=== PATIENT | male | born 1980 | race Caucasian/White ===

== ENCOUNTER 2017-12-11 13:52 | Inpatient (IN) ==
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
[2017-12-11] MEDS ORDERED: Ipratropium/Albuterol Neb 3 ML IH ONE (14:08)
[2017-12-11] MEDS ORDERED: Piperacillin/Tazobactam 3.375 GM in 0.9 % Sodium Chloride Mini Bag 100 ML IVPB ONE (14:32)
[2017-12-11 15:04] LABS: Basophils % 0.1 %; Eosinophils % 0.1 %; Hematocrit 47.5 % (37.5-50.1); Hemoglobin 16.2 g/dL (12.9-16.9); Immature Granulocytes % 0.4 % (0-4); Lymphocytes # 1.1 K/mcL (0.6-4.6); Lymphocytes % 7.2 %; Mean Corpuscular HGB Conc 34.1 g/dL (31.6-35.5); Mean Corpuscular Hemoglobin 29.4 pg (28.0-33.3); Mean Corpuscular Volume 86.2 fL (83.0-100.0); Mean Platelet Volume 8.5 fL (9.4-12.4); Monocytes # 0.8 K/mcL (0.0-1.3); Monocytes % 5.2 %; Neutrophils # 13.1 K/mcL (1.6-8.9); Platelet Count 139 K/mcL (140-400); Red Blood Count 5.51 M/mcL (4.19-5.50); Red Cell Distribution Width 13.5 % (11.5-14.5)
[2017-12-11 15:12] LABS: INR 1.3; Prothrombin Time 13.6 Seconds (9.4-12.1)
[2017-12-11] MEDS ORDERED: *HR* FentaNYL (PF) 100 MCG/2 ML VIAL IVP ONE (15:24)
[2017-12-11 15:34] LABS: Alanine Aminotransferase 20 Units/L (7-52); Albumin 4.7 g/dL (3.5-5.7); Albumin/Globulin Ratio 1.5 (1.1-2.2); Alkaline Phosphatase 93 Units/L (34-104); Aspartate Amino Transferase 16 Units/L (13-39); Bilirubin,Direct 0.2 mg/dL (0.0-0.2); Bilirubin,Indirect 0.8 mg/dL (0.0-1.2); Blood Urea Nitrogen 15 mg/dL (6-20); Calcium 9.6 mg/dL (8.6-10.3); Carbon Dioxide 21 mEq/L (23-29); Chloride 106 mEq/L (98-107); Globulin 3.2 g/dL (2.4-3.5); Glucose 122 mg/dL (70-105); Osmolality,Calculated 288 (280-300); Potassium 3.7 mEq/L (3.5-5.1); Sodium 138 mEq/L (136-145); Total Protein 7.9 g/dL (6.4-8.9)
[2017-12-11] MEDS ORDERED: 0.9 % Sodium Chloride 1,000 ML IVC ONE (15:45)
[2017-12-11 16:11] LABS: BUN/Creatinine Ratio 22 (6-26); Magnesium 1.8 mg/dL (1.6-2.6); eGFR For African Americans > 60 (> 60); eGFR For Non-African Americans > 60 (> 60)
[2017-12-11] MEDS ORDERED: *HR* OxyCODONE ER (12 HR) 10 MG TABLET PO PRN (17:17)
[2017-12-11] MEDS ORDERED: Naloxone 0.4 MG/ML INJ IVP PRN (17:21)
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
[2017-12-11] MEDS ORDERED: Vancomycin (wt based) 1,000 MG VIAL IVPB SCH (18:00)
[2017-12-11] MEDS: *HR* OxyCODONE Immed Rel 15 MG TABLET PO PRN ×2 (18:25→22:23)
[2017-12-11] MEDS: Ringers Solution, Lactated 1,000 ML IVC SCH (18:26)
[2017-12-11] MEDS: Ipratropium/Albuterol Neb 3 ML IH SCH ×2 (20:27→23:42)
[2017-12-11] MEDS: Acetaminophen 325 MG TABLET PO PRN (20:43)
[2017-12-11] MEDS ORDERED: *HR* OxyCODONE ER (12 HR) 10 MG TABLET PO SCH (21:00)
--- NOTE | 2017-12-11 23:06 | Event Note ---
Date of Encounter: 12/11/17 Time of Encounter: 20:30 Alerted by pts. nurse [place] that pt. and pts. family were requesting his oxycodone 10 mg ER. Patient admitted with hypoxic respiratory failure and was placed on Ventimask. OxyContin 10 mg ER held due to respiratory failure. Instructed nurse to collect vitals at 21:30 which showed BP of 97/60, temp 100.9F, SPO2 100% on 8 L Ventimask, heart rate 94, RR 16. Oxycodone held due to hypotension. Will continue to monitor pt. and VS.
[2017-12-11] MEDS: traZODone 50 MG TABLET PO PRN (23:35)
[2017-12-11] MEDS: Baclofen 10 MG TABLET PO PRN (23:35)
[2017-12-11] MEDS: Piperacillin/Tazobactam 3.375 GM in 0.9 % Sodium Chloride Mini Bag 100 ML IVPB SCH (23:36)
[2017-12-11] MEDS: diazePAM 10 MG TABLET PO PRN (23:36)
[2017-12-12] MEDS: *HR* Heparin 5,000 UNIT/ML VIAL SQ SCH ×3 (00:59→15:11)
[2017-12-12] MEDS: Ipratropium/Albuterol Neb 3 ML IH SCH ×6 (03:47→23:32)
[2017-12-12] MEDS: Ringers Solution, Lactated 1,000 ML IVC SCH (04:08)
[2017-12-12 05:55] LABS: BUN/Creatinine Ratio 19 (6-26); Blood Urea Nitrogen 13 mg/dL (6-20); Calcium 8.3 mg/dL (8.6-10.3); Carbon Dioxide 23 mEq/L (23-29); Chloride 108 mEq/L (98-107); Glucose 105 mg/dL (70-105); Magnesium 1.5 mg/dL (1.6-2.6); Osmolality,Calculated 284 (280-300); Potassium 3.4 mEq/L (3.5-5.1); Sodium 137 mEq/L (136-145); eGFR For African Americans > 60 (> 60); eGFR For Non-African Americans > 60 (> 60)
[2017-12-12 06:40] LABS: Hematocrit 41.6 % (37.5-50.1); Hemoglobin 13.8 g/dL (12.9-16.9); Mean Corpuscular HGB Conc 33.2 g/dL (31.6-35.5); Mean Corpuscular Hemoglobin 29.1 pg (28.0-33.3); Mean Corpuscular Volume 87.8 fL (83.0-100.0); Mean Platelet Volume 8.7 fL (9.4-12.4); Platelet Count 106 K/mcL (140-400); Red Blood Count 4.74 M/mcL (4.19-5.50); Red Cell Distribution Width 13.8 % (11.5-14.5)
[2017-12-12] MEDS: Pregabalin 75 MG CAPSULE PO SCH (08:49)
[2017-12-12] MEDS: Piperacillin/Tazobactam 3.375 GM in 0.9 % Sodium Chloride Mini Bag 100 ML IVPB SCH ×2 (08:49→15:07)
[2017-12-12] MEDS: Baclofen 10 MG TABLET PO PRN (08:58)
[2017-12-12] MEDS: *HR* OxyCODONE Immed Rel 15 MG TABLET PO PRN ×2 (09:08→22:26)
[2017-12-12] MEDS ORDERED: Magnesium Oxide 400 MG TABLET PO ONE (10:18)
--- NOTE | 2017-12-12 10:23 | Internal Med Progress Note ---
Date of Encounter: 12/12/17 Time of Encounter: 10:21 - Assessment and plan (1) Acute hypoxemic respiratory failure Current Visit: Yes Status: Acute Assessment and plan: Patient is 100% on RA. Continue nebulizers. Treat pneumonia as below. Patient has a history of mucus plugs and is at risk again. Will order resp percussion protocol (2) Sepsis Current Visit: Yes Status: Acute Assessment and plan: Patient met sepsis criteria with fever, tachycardia, leukocytosis and pneumonia as a source. We will treat as below. Normal lactic acid. Qualifiers: Sepsis type: sepsis due to unspecified organism Qualified Code(s): A41.9 - Sepsis, unspecified organism (3) Pneumonia Current Visit: Yes Status: Acute Assessment and plan: Patient has been started on vancomycin and Zosyn for healthcare associated pneumonia. Not exactly sure when the last time he was hospitalized but he has a discharge summary from about a year ago. I think it is okay to keep on current antibiotics for now and de-escalate by tomorrow. He still has a white count of 15,000. Follow up on cultures. 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 Resumed on home muscle relaxant (5) DVT prophylaxis Current Visit: No Status: Acute Assessment and plan: Heparin subcutaneous - Subjective Interval history: Patient was seen and examined. Afebrile this morning. he is still having a cough. productive. Currently on RA. Admitted with pneumonia and being treated as healthcare associated pneumonia. Patient has a history of quadriplegia. On initial presentation was found to have a fever off over 103 and was tachycardic and was hypoxic in the 80s and put on supplemental oxygen. - Constitutional Vitals: Temp Pulse Resp BP Pulse Ox 97.4 F L 80 16 91/57 96 12/12/17 07:30 12/12/17 07:30 12/12/17 07:38 12/12/17 07:30 12/12/17 09:17 General appearance: Present: A&O X 3, severe distress, underweight Exam: GEN: NAD CVS: RRR. S1, S2, No m/r/g RESP: Diminished with coarse breath sounds on the right. ABD: Soft, NT, ND, +BS EXT: No edema. 2+ DP. No rashes. b/l below knee amp noted NEURO: Nonfocal Internal Medicine: Result - Labs CBC & Chem 7: 12/12/17 06:25 12/12/17 05:14 Labs: Short CBC 12/12/17 Range/Units 06:25 WBC 15.2 H (4.3-11.1) K/mcL Hgb 13.8 D (12.9-16.9) g/dL Hct 41.6 (37.5-50.1) % Plt Count 106 L (140-400) K/mcL BMP 12/12/17 05:14 Sodium 137 Potassium 3.4 L Chloride 108 H Carbon Dioxide 23 BUN 13 Creatinine 0.68 L Glucose 105 Calcium 8.3 L - ABG Interpretation ABG results: PT/INR, D-dimer PT 13.6 Seconds (9.4-12.1) H 12/11/17 13:59 D-Dimer 339 ng/mLFEU (0-500) 12/11/17 13:59 Consult Discharge Plan - Plan Referrals: Joseph Pelayo MD [Primary Care Provider] -
[2017-12-12] MEDS: Ondansetron 4 MG/2 ML VIAL IVP PRN (12:09)
[2017-12-12] MEDS: Acetaminophen 325 MG TABLET PO PRN (12:28)
[2017-12-12 13:35] LABS: Bilirubin,Urine Negative (Negative); Blood,Urine Large (Negative); Clarity,Urine Turbid (Clear); Color,Urine Dark Yellow (Yellow); Glucose,Urine (UA) Normal (Normal); Ketones,Urine Negative (Negative); Leukocyte Esterase,Urine Large (Negative); Nitrite,Urine Positive (Negative); Protein,Urine 30 mg/dL (Neg-Trace); Specific Gravity,Urine 1.016 (1.010-1.025); Urobilinogen,Urine Normal (Normal)
[2017-12-12 13:36] LABS: Bacteria,Urine Few per hpf (None-Few); Hyaline Casts,Urine None Seen per lpf (None-Few); RBC,Urine TNTC per hpf (0-3); Squamous Epithelial Cell,Urine Moderate per lpf (None-Few); WBC,Urine TNTC per hpf (0-3)
[2017-12-12] MEDS ORDERED: Ibuprofen 600 MG TABLET PO ONE (14:35)
[2017-12-12] MEDS: 0.9 % Sodium Chloride 1,000 ML IVC SCH (15:11)
[2017-12-12] MEDS ORDERED: Ketorolac 15 MG/ML VIAL IVP ONE (17:10)
[2017-12-13] MEDS: Baclofen 10 MG TABLET PO PRN ×2 (01:00→10:06)
[2017-12-13] MEDS: diazePAM 10 MG TABLET PO PRN (01:00)
[2017-12-13] MEDS: Piperacillin/Tazobactam 3.375 GM in 0.9 % Sodium Chloride Mini Bag 100 ML IVPB SCH ×3 (01:00→15:46)
[2017-12-13] MEDS: traZODone 50 MG TABLET PO PRN (01:11)
[2017-12-13] MEDS: *HR* Heparin 5,000 UNIT/ML VIAL SQ SCH ×3 (02:10→15:47)
[2017-12-13] MEDS: Ipratropium/Albuterol Neb 3 ML IH SCH ×6 (04:25→23:57)
[2017-12-13 05:28] LABS: Mean Corpuscular Volume 88.3 fL (83.0-100.0); Mean Platelet Volume 9.6 fL (9.4-12.4); Nucleated Red Blood Cells 0.3 /100 WBC (0)
[2017-12-13 05:29] LABS: Basophils % 0.3 %; Eosinophils # 0.3 K/mcL (0.0-0.6); Eosinophils % 3.1 %; Hematocrit 36.4 % (37.5-50.1); Immature Granulocytes % 1.4 % (0-4); Immature Platelets 1.7 % (1.1-6.1); Lymphocytes # 1.3 K/mcL (0.6-4.6); Mean Corpuscular Hemoglobin 29.1 pg (28.0-33.3); Monocytes # 0.5 K/mcL (0.0-1.3); Monocytes % 4.9 %; Neutrophils # 7.8 K/mcL (1.6-8.9); Red Blood Count 4.12 M/mcL (4.19-5.50); Segmented Neutrophils % 77.3 %
[2017-12-13 05:33] LABS: Platelet Count 77 K/mcL (140-400)
[2017-12-13 08:55] LABS: BUN/Creatinine Ratio 14 (6-26); Blood Urea Nitrogen 9 mg/dL (6-20); Calcium 7.9 mg/dL (8.6-10.3); Carbon Dioxide 25 mEq/L (23-29); Chloride 109 mEq/L (98-107); Glucose 101 mg/dL (70-105); Magnesium 1.6 mg/dL (1.6-2.6); Osmolality,Calculated 283 (280-300); Potassium 4.3 mEq/L (3.5-5.1); Sodium 137 mEq/L (136-145); eGFR For African Americans > 60 (> 60); eGFR For Non-African Americans > 60 (> 60)
[2017-12-13] MEDS ORDERED: Levofloxacin 750 MG/150 ML 750 MG/150 ML BAG IVPB SCH (10:00)
[2017-12-13] MEDS: Pregabalin 75 MG CAPSULE PO SCH (10:06)
[2017-12-13] MEDS: *HR* OxyCODONE Immed Rel 15 MG TABLET PO PRN ×2 (10:06→21:44)
[2017-12-13] MEDS: 0.9 % Sodium Chloride 1,000 ML IVC SCH ×2 (11:55→11:56)
[2017-12-13] MEDS ORDERED: Ketorolac 15 MG/ML VIAL IVP ONE (13:25)
[2017-12-13] MEDS ORDERED: Vancomycin 1 EACH in 0.9 % Sodium Chloride 250 ML IVPB SCH (14:00)
--- NOTE | 2017-12-13 17:11 | Internal Med Progress Note ---
Date of Encounter: 12/13/17 Time of Encounter: 14:23 - Subjective Interval history: Patient seen and examined at bedside. Resting in bed and reports of diffuse body pain. Pt's abx were de-escalated this morning however was noted to have a Tmax of 102.5 due to which Vancomycin and Zosyn was restarted. Stat blood cultures were drawn. - Assessment and plan (1) Acute hypoxemic respiratory failure Current Visit: Yes Status: Acute Assessment and plan: Patient is 100% on RA. Continue nebulizers. Treat pneumonia as below. Patient has a history of mucus plugs and is at risk again. Will order resp percussion protocol (2) Sepsis Current Visit: Yes Status: Acute Assessment and plan: Patient met sepsis criteria with fever, tachycardia, leukocytosis and pneumonia as a source. We will treat as below. Normal lactic acid. 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 Resumed on home muscle relaxant (5) DVT prophylaxis Current Visit: No Status: Acute Assessment and plan: Heparin subcutaneous - Constitutional Vitals: Temp Pulse Resp BP Pulse Ox 99.0 F 98 17 94/57 95 12/13/17 16:32 12/13/17 16:32 12/13/17 16:32 12/13/17 16:32 12/13/17 16:32 General appearance: Present: A&O X 3, no acute distress, obese - Head Head exam: Present: atraumatic, normocephalic - Eye Eye exam: Present: conjuntiva pink, sclera anicteric - Respiratory Respiratory exam: Absent: respiratory distress, wheezes (coarse breath sounds) - Cardiovascular Cardiovascular exam: Present: RRR, +S1, +S2. Absent: diastolic murmur, gallop, rubs, systolic murmur - GI/Abdominal GI/Abdominal exam: Present: normal bowel sounds, soft, no peritoneal signs. Absent: distended, tenderness - Extremities Exam Extremities exam: Present: warm, radial pulses palpable and symmetrical (b/l BKA ). Absent: calf tenderness - Neurological Exam Neurological exam: Present: alert, oriented X3 Internal Medicine: Result - Labs CBC & Chem 7: 12/13/17 05:11 12/13/17 06:57 Labs: Short CBC 12/13/17 Range/Units 05:11 WBC 10.1 (4.3-11.1) K/mcL Hgb 12.0 L D (12.9-16.9) g/dL Hct 36.4 L (37.5-50.1) % Plt Count 77 L (140-400) K/mcL Neutrophils # 7.8 (1.6-8.9) K/mcL BMP 12/13/17 06:57 Sodium 137 Potassium 4.3 Chloride 109 H Carbon Dioxide 25 BUN 9 Creatinine 0.63 L Glucose 101 Calcium 7.9 L - ABG Interpretation ABG results: PT/INR, D-dimer PT 13.6 Seconds (9.4-12.1) H 12/11/17 13:59 D-Dimer 339 ng/mLFEU (0-500) 12/11/17 13:59 Consult Discharge Plan - Plan Referrals: Joseph Pelayo MD [Primary Care Provider] -
[2017-12-14] MEDS: *HR* Heparin 5,000 UNIT/ML VIAL SQ SCH ×4 (00:40→16:59)
[2017-12-14] MEDS: Acetaminophen 325 MG TABLET PO PRN (01:04)
[2017-12-14] MEDS: Piperacillin/Tazobactam 3.375 GM in 0.9 % Sodium Chloride Mini Bag 100 ML IVPB SCH ×3 (01:05→17:08)
[2017-12-14] MEDS: diazePAM 10 MG TABLET PO PRN ×2 (02:04→12:37)
[2017-12-14] MEDS: traZODone 50 MG TABLET PO PRN (02:04)
[2017-12-14] MEDS: Baclofen 10 MG TABLET PO PRN (02:04)
[2017-12-14] MEDS: Ipratropium/Albuterol Neb 3 ML IH SCH ×5 (03:55→20:02)
[2017-12-14] MEDS: 0.9 % Sodium Chloride 1,000 ML IVC SCH ×3 (07:25→13:38)
[2017-12-14 07:40] LABS: BUN/Creatinine Ratio 10 (6-26); Blood Urea Nitrogen 7 mg/dL (6-20); Calcium 8.3 mg/dL (8.6-10.3); Carbon Dioxide 24 mEq/L (23-29); Chloride 110 mEq/L (98-107); Glucose 111 mg/dL (70-105); Magnesium 1.7 mg/dL (1.6-2.6); Osmolality,Calculated 287 (280-300); Potassium 4.2 mEq/L (3.5-5.1); Sodium 139 mEq/L (136-145); eGFR For African Americans > 60 (> 60); eGFR For Non-African Americans > 60 (> 60)
[2017-12-14 07:42] LABS: Basophils % 0.2 %; Eosinophils # 0.3 K/mcL (0.0-0.6); Eosinophils % 3.1 %; Hematocrit 35.4 % (37.5-50.1); Hemoglobin 11.5 g/dL (12.9-16.9); Immature Granulocytes % 0.6 % (0-4); Immature Platelets 2.7 % (1.1-6.1); Lymphocytes # 0.9 K/mcL (0.6-4.6); Lymphocytes % 9.7 %; Mean Corpuscular HGB Conc 32.5 g/dL (31.6-35.5); Mean Corpuscular Hemoglobin 29.3 pg (28.0-33.3); Mean Corpuscular Volume 90.1 fL (83.0-100.0); Mean Platelet Volume 9.5 fL (9.4-12.4); Monocytes # 0.4 K/mcL (0.0-1.3); Monocytes % 4.7 %; Neutrophils # 7.5 K/mcL (1.6-8.9); Platelet Count 139 K/mcL (140-400); Red Blood Count 3.93 M/mcL (4.19-5.50); Red Cell Distribution Width 14.2 % (11.5-14.5); Segmented Neutrophils % 81.7 %
[2017-12-14 07:47] LABS: Platelet Estimate Slight Decrease (Normal)
[2017-12-14] MEDS: Pregabalin 75 MG CAPSULE PO SCH (07:50)
[2017-12-14] MEDS ORDERED: Ketorolac 15 MG/ML VIAL IVP ONE (09:56)
[2017-12-14] MEDS ORDERED: Ketorolac 15 MG/ML VIAL IVP PRN (09:58)
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
--- NOTE | 2017-12-14 12:21 | Electrocardiograph Report ---
[address] [place], [place] [address] Test Date: 2017-12-11 Pat Name: Mario Fritz Department: 103 Room: 2A71 Gender: M Cook Fry: JUAN RAMON : 1980 Requested By: Greg Decker Order Number: [id number] Reading MD: Wild Weathers Measurements Intervals [place] Rate: 100 P: 76 LA: 139 QRS: -28 QRSD: 118 T: 54 QT: 351 QTc: 408 Interpretive Statements SINUS TACHYCARDIA LEFT ATRIAL ENLARGEMENT BORDERLINE LEFT AXIS DEVIATION INCOMPLETE RIGHT BUNDLE BRANCH BLOCK BASELINE ARTIFACT Electronically Signed On 12-14-2017 12:19:18 EDT by Wild Weathers
--- NOTE | 2017-12-14 12:58 | Internal Med Progress Note ---
Date of Encounter: 12/14/17 Time of Encounter: 12:52 - Subjective Interval history: Patient seen and examined with family present at bedside. Resting in bed and reports of pain not being adequately controlled. Restarted patient's home pain medications in addition to continuation of break through pain medications. Given persistant fevers, repeat CXR was obtained and XRAY reported bilateral multifocal PNA. ID is consulted given persistent fevers - Assessment and plan (1) Acute hypoxemic respiratory failure Current Visit: Yes Status: Acute Assessment and plan: Patient is 100% on RA. Continue nebulizers. Treat pneumonia as below. Patient has a history of mucus plugs and is at risk again. Will order resp percussion protocol If pt continues to have persistent fevers despite appropriate abx coverage, will obtain CT chest and consider pulmonology evaluation for a possible bronchoscopy (2) Sepsis Current Visit: Yes Status: Acute Assessment and plan: Patient met sepsis criteria with fever, tachycardia, leukocytosis and pneumonia as a source. We will treat as below. Normal lactic acid. 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 esumed on home meds (5) DVT prophylaxis Current Visit: No Status: Acute Assessment and plan: Heparin subcutaneous (6) Electrolyte abnormality Current Visit: No Status: Acute Hypophosphatemia Phos supplemented continue to monitor electrolytes and replace as needed - Constitutional Vitals: Temp Pulse Resp BP Pulse Ox 100.5 F H 88 18 98/60 100 12/14/17 11:20 12/14/17 11:20 12/14/17 11:20 12/14/17 09:30 12/14/17 11:20 General appearance: Present: A&O X 3, no acute distress, obese - Head Head exam: Present: atraumatic, normocephalic - Eye Eye exam: Present: conjuntiva pink, sclera anicteric - Respiratory Respiratory exam: Absent: respiratory distress, wheezes (coarse breath sounds diffusely ) - Cardiovascular Cardiovascular exam: Present: RRR, +S1, +S2. Absent: diastolic murmur, gallop, rubs, systolic murmur - GI/Abdominal GI/Abdominal exam: Present: normal bowel sounds, soft, no peritoneal signs. Absent: distended, tenderness - Extremities Exam Extremities exam: Present: warm, radial pulses palpable and symmetrical (b/l LE BKA) - Neurological Exam Neurological exam: Present: oriented X3 Internal Medicine: Result - Labs CBC & Chem 7: 12/14/17 05:33 12/14/17 05:33 Labs: Short CBC 12/14/17 Range/Units 05:33 WBC 9.2 (4.3-11.1) K/mcL Hgb 11.5 L (12.9-16.9) g/dL Hct 35.4 L (37.5-50.1) % Plt Count 139 L D (140-400) K/mcL Neutrophils # 7.5 (1.6-8.9) K/mcL BMP 12/14/17 05:33 Sodium 139 Potassium 4.2 Chloride 110 H Carbon Dioxide 24 BUN 7 Creatinine 0.67 L Glucose 111 H Calcium 8.3 L - ABG Interpretation ABG results: PT/INR, D-dimer PT 13.6 Seconds (9.4-12.1) H 12/11/17 13:59 D-Dimer 339 ng/mLFEU (0-500) 12/11/17 13:59 - Impressions Impressions Chest X-Ray 12/14/17 07:00 IMPRESSION: Progressive bilateral multifocal pneumonia. D/ / 12/14/2017 08:07:17 Dave King MD / destinee Interpreting Provider: Dave King MD Consult Discharge Plan - Plan Referrals: Joseph Pelayo MD [Primary Care Provider] -
[2017-12-14] MEDS: *HR* OxyCODONE ER (12 HR) 10 MG TABLET PO SCH ×2 (13:40→17:08)
[2017-12-14 18:33] LABS: Adenovirus Not Detected (Not Detect); Bordetella Pertussis Not Detected (Not Detect); Chlamydophila pneumoniae Not Detected (Not Detect); Coronavirus 229E Not Detected (Not Detect); Coronavirus HKU1 Not Detected (Not Detect); Coronavirus NL63 Not Detected (Not Detect); Coronavirus OC43 Not Detected (Not Detect); Human Metapneumovirus Not Detected (Not Detect); Human Rhinovirus/Enterovirus Not Detected (Not Detect); Influenza A Subtype 2009 H1 Not Detected (Not Detect); Influenza A Untypeable Not Detected (Not Detect); Influenza B Not Detected (Not Detect); Mycoplasma pneumoniae Not Detected (Not Detect); Parainfluenza Virus 1 Not Detected (Not Detect); Parainfluenza Virus 2 Not Detected (Not Detect); Parainfluenza Virus 3 Not Detected (Not Detect); Parainfluenza Virus 4 Not Detected (Not Detect); Respiratory Syncytial Virus Not Detected (Not Detect)
[2017-12-15] MEDS: *HR* OxyCODONE Immed Rel 15 MG TABLET PO PRN ×3 (00:05→22:41)
[2017-12-15] MEDS: Baclofen 10 MG TABLET PO PRN ×3 (00:05→22:41)
[2017-12-15] MEDS: Acetaminophen 325 MG TABLET PO PRN ×2 (00:05→10:57)
[2017-12-15] MEDS: Piperacillin/Tazobactam 3.375 GM in 0.9 % Sodium Chloride Mini Bag 100 ML IVPB SCH ×3 (00:23→16:04)
[2017-12-15] MEDS: Ipratropium/Albuterol Neb 3 ML IH SCH ×7 (00:44→23:55)
[2017-12-15] MEDS: *HR* Heparin 5,000 UNIT/ML VIAL SQ SCH ×3 (01:29→16:03)
[2017-12-15] MEDS: *HR* OxyCODONE ER (12 HR) 10 MG TABLET PO SCH ×2 (05:45→18:03)
[2017-12-15 05:55] LABS: Basophils % 0.2 %; Eosinophils # 0.1 K/mcL (0.0-0.6); Eosinophils % 1.3 %; Hematocrit 35.1 % (37.5-50.1); Hemoglobin 11.2 g/dL (12.9-16.9); Immature Granulocytes % 0.3 % (0-4); Lymphocytes % 10.4 %; Mean Corpuscular HGB Conc 31.9 g/dL (31.6-35.5); Mean Corpuscular Hemoglobin 28.6 pg (28.0-33.3); Mean Corpuscular Volume 89.8 fL (83.0-100.0); Mean Platelet Volume 9.3 fL (9.4-12.4); Monocytes # 0.5 K/mcL (0.0-1.3); Monocytes % 4.9 %; Neutrophils # 7.6 K/mcL (1.6-8.9); Platelet Count 145 K/mcL (140-400); Red Blood Count 3.91 M/mcL (4.19-5.50); Red Cell Distribution Width 14.3 % (11.5-14.5); Segmented Neutrophils % 82.9 %
[2017-12-15 06:13] LABS: Vancomycin,Trough 30 mcg/mL (5-10)
[2017-12-15] MEDS: 0.9 % Sodium Chloride 1,000 ML IVC SCH ×2 (07:04→08:56)
[2017-12-15 07:37] LABS: BUN/Creatinine Ratio 10 (6-26); Blood Urea Nitrogen 6 mg/dL (6-20); Calcium 8.5 mg/dL (8.6-10.3); Carbon Dioxide 25 mEq/L (23-29); Chloride 107 mEq/L (98-107); Glucose 111 mg/dL (70-105); Magnesium 1.8 mg/dL (1.6-2.6); Osmolality,Calculated 282 (280-300); Phosphorous 3.5 mg/dL (2.7-4.5); Potassium 4.1 mEq/L (3.5-5.1); Sodium 137 mEq/L (136-145); eGFR For African Americans > 60 (> 60); eGFR For Non-African Americans > 60 (> 60)
[2017-12-15] MEDS: Pregabalin 75 MG CAPSULE PO SCH (08:54)
[2017-12-15] MEDS: Levofloxacin 750 MG/150 ML 750 MG/150 ML BAG IVPB SCH (08:55)
--- NOTE | 2017-12-15 09:58 | Infectious Disease Progress No ---
Date of Encounter: 12/15/17 Time of Encounter: 09:30 - Assessment and Plan (1) Sepsis Current Visit: Yes Status: Acute Patient met sepsis criteria at the time of admission. Currently demonstrates sepsis criteria with fever, tachycardia, hypoxia, multifocal pneumonia - Day# 5 of broad-spectrum antibiotics including IV vancomycin and Zosyn - Day 2 IV Levaquin 750 mg daily - Blood cultures 2 (12/11) preliminary no growth - Sputum culture (12/11 and 12/14): Many WBC, many epithelial cells, gram- positive cocci and many- specimen did not meet criteria for culture. - Chest x-ray (12/14): Progressive multifocal pneumonia - CTA of the chest (12/14) did not demonstrate PE, It did demonstrate multifocal pulmonary infiltrates, right greater than left, bilateral pleural effusions with right greater than left. Secretions within the tracheobronchial tree. Mediastinal and right hilar adenopathy. Qualifiers: Sepsis type: sepsis due to unspecified organism Qualified Code(s): A41.9 - Sepsis, unspecified organism (2) Multifocal pneumonia Current Visit: Yes Status: Acute Chest x-ray and chest CTA concerning for multifocal pneumonia, progressive since admission - Clinically patient is not improved Organism: Unknown at this time - blood culture as mentioned above - Antibiotics IV vancomycin and Zosyn (day 5 of both) - Urine Legionella antigen negative - Respiratory infectious panel negative Plan: - As discussed above. 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 - Continue pulmonary rehabilitation - Management per primary team. (4) Thrombocytopenia Current Visit: Yes Status: Acute Patient Demser thrombocytopenia in the setting of acute illness. - Continue to monitor and avoid Zyvox antibiotic coverage as could increase the risk of further thrombocytopenia complications. (5) Acute respiratory failure Current Visit: Yes Status: Acute patient has acute respiratory failure without improvement on current antibiotic therapy. - Hx of DVT with significant risk factors - Chest CTA negative for PE - Likely secondary to worsening multifocal pneumonia. Qualifiers: Respiratory failure complication: unspecified whether with hypoxia or hypercapnia Qualified Code(s): J96.00 - Acute respiratory failure, unspecified whether with hypoxia or hypercapnia (6) UTI (urinary tract infection) due to urinary indwelling catheter Current Visit: No Status: Acute Urine culture growing enterococcus, sensitivities still pending - Current antibiotic coverage is IV Zosyn Qualifiers: Indwelling urinary catheter type: cystostomy catheter Encounter type: initial encounter Qualified Code(s): T83.510A - Infection and inflammatory reaction due to cystostomy catheter, initial encounter; N39.0 - Urinary tract infection, site not specified; N39.0 - Urinary tract infection, site not specified - Subjective Interval history: Mr. Fritz was seen the patient bedside this morning. His father is there and very supportive. He states that he felt very confused last evening and having episodes of delusions. He demonstrates some confusion and talks about difficulty clearing mucus from his airway. He does not feel as [place] status is significantly improved but overall is feeling slightly better with less episodes of feeling feverish or chilled. He continues to have cough with production with nasal suction. Infect Dis PN-Objective Data - Labs CBC & Chem 7: 12/15/17 05:35 12/15/17 05:35 Labs: Laboratory Results - last 24 hr 12/14/17 12/15/17 12/15/17 17:19 05:35 05:35 WBC 9.1 RBC 3.91 L Hgb 11.2 L Hct 35.1 L MCV 89.8 MCH 28.6 MCHC 31.9 RDW 14.3 Plt Count 145 MPV 9.3 L Immature Gran % 0.3 Seg Neutrophils % 82.9 Lymphocytes % 10.4 Monocytes % 4.9 Eosinophils % 1.3 Basophils % 0.2 Neutrophils # 7.6 Lymphocytes # 1.0 Monocytes # 0.5 Eosinophils # 0.1 Basophils # 0.0 Sodium 137 Potassium 4.1 Chloride 107 Carbon Dioxide 25 BUN 6 Creatinine 0.59 L Est GFR ( Amer) > 60 Est GFR (Non-Af Amer) > 60 BUN/Creatinine Ratio 10 Glucose 111 H Calculated Osmolality 282 Calcium 8.5 L Phosphorus 3.5 Magnesium 1.8 Vancomycin Trough 30 H Chlamy pneumoniae PCR Not Detected Adenovirus (PCR) Not Detected B. pertussis DNA (PCR) Not Detected B.parapertussis DNA PCR Not Detected Coronavirus OC43 (PCR) Not Detected Coronavirus HKU1 (PCR) Not Detected Coronavirus 229E (PCR) Not Detected Coronavirus NL63 (PCR) Not Detected Human Metapneumovir PCR Not Detected Influenza A (H1) PCR Not Detected Influ A (H1N1/09) PCR Not Detected Influenza A (H3) PCR Not Detected Influenza A Untype (PCR) Not Detected Influenza Type B (PCR) Not Detected M.pneumoniae DNA (PCR) Not Detected Parainfluenza 1 (PCR) Not Detected Parainfluenza 2 (PCR) Not Detected Parainfluenza 3 (PCR) Not Detected Parainfluenza 4 (PCR) Not Detected RSV (PCR) Not Detected Entero/Rhino (PCR) Not Detected Cultures: Cultures 12/12/17 12:45 Urine Culture - Preliminary Urine,Clean Catch Enterococcus species 12/13/17 14:07 Blood Culture - Preliminary Peripheral Venipuncture No growth. 12/13/17 14:07 Blood Culture - Preliminary Peripheral Venipuncture No growth. 12/14/17 23:15 Sputum Culture - Final Sputum 12/12/17 12:45 Legionella Antigen - Final Urine,Clean Catch Streptococcus pneumoniae Antigen (M - Final 12/11/17 19:45 Sputum Culture - Final Sputum Serology 12/14/17 12/12/17 Range/Units 17:19 12:45 Urine Color Dark Yellow (Yellow) Urine Clarity Turbid A (Clear) Urine pH 7.0 (5.0-8.0) pH Units Ur Specific [place] 1.016 (1.010-1.025) Urine Protein 30 H (Neg-Trace) mg/dL Urine Glucose (UA) Normal (Normal) mg/dL Urine Ketones Negative (Negative) mg/dL Urine Blood Large H (Negative) Urine Nitrite Positive A (Negative) Urine Bilirubin Negative (Negative) Urine Urobilinogen Normal (Normal) mg/dL Ur Leukocyte Esterase Large H (Negative) Urine Microscopic RBC TNTC H (0-3) per hpf Urine Microscopic WBC TNTC H (0-3) per hpf Ur Squamous Epith Cells Moderate H (None-Few) per lpf Urine Bacteria Few (None-Few) per hpf Hyaline Casts None Seen (None-Few) per lpf Chlamy pneumoniae PCR Not Detected (Not Detect) Adenovirus (PCR) Not Detected (Not Detect) B. pertussis DNA (PCR) Not Detected (Not Detect) B.parapertussis DNA PCR Not Detected (Not Detect) Coronavirus OC43 (PCR) Not Detected (Not Detect) Coronavirus HKU1 (PCR) Not Detected (Not Detect) Coronavirus 229E (PCR) Not Detected (Not Detect) Coronavirus NL63 (PCR) Not Detected (Not Detect) Human Metapneumovir PCR Not Detected (Not Detect) Influenza A (H1) PCR Not Detected (Not Detect) Influ A (H1N1/09) PCR Not Detected (Not Detect) Influenza A (H3) PCR Not Detected (Not Detect) Influenza A Untype (PCR) Not Detected (Not Detect) Influenza Type B (PCR) Not Detected (Not Detect) M.pneumoniae DNA (PCR) Not Detected (Not Detect) Parainfluenza 1 (PCR) Not Detected (Not Detect) Parainfluenza 2 (PCR) Not Detected (Not Detect) Parainfluenza 3 (PCR) Not Detected (Not Detect) Parainfluenza 4 (PCR) Not Detected (Not Detect) RSV (PCR) Not Detected (Not Detect) Entero/Rhino (PCR) Not Detected (Not Detect) - Impressions Impressions Chest CTA 12/14/17 17:18 IMPRESSION: 1. No evidence of pulmonary embolic disease. 2. Multifocal pulmonary infiltrate, right greater than left. Complete lower lobe atelectasis bilaterally with partial gravity dependent left upper lobe atelectasis. Bilateral pleural effusions, right greater than left. 3. Secretions within the tracheobronchial tree. 4. Mediastinal and right hilar adenopathy, likely reactive. D/ / 12/14/2017 18:40:27 Ronal Bullock MD / destinee Interpreting Provider: Ronal Bullock MD Exam - Constitutional Vitals: Temp Pulse Resp BP Pulse Ox 99.6 F 90 16 92/53 97 12/15/17 07:34 12/15/17 07:34 12/15/17 07:34 12/15/17 07:34 12/15/17 09:15 Exam: General: Patient alert, awake, oriented 3, interactive, in no acute distress wearing oxygen mask HEENT: Normocephalic, atraumatic, pupils equal reactive to light,oral mucosa moist, neck supple trachea midline. Chest: Symmetric bilateral correlating with respiratory effort, effort nonlabored. Cardiac: Regular rate and rhythm, positive S1 and S2. no bruits appreciated bilateral carotids, Radial pulses 2+ bilateral, Respiratory: Crackles and wheezing appreciated in bilateral lung bases and peristernal Abdomen: Soft, mild tenderness to palpation, positive bowel sounds, no palpable masses appreciated on examination Extremities: bilateral below the knee amputations with no signs of erythema or edema, poor musculature with muscle spasticity and upper extremity is bilaterally Consult Discharge Plan - Plan Referrals: Joseph Pelayo MD [Primary Care Provider] - - Attending Attestation I examined this patient and my medical decision-making was reviewed with the Resident Physician. I agree with the documented findings, disposition and treatment plan as described except to the extent set forth below.
--- NOTE | 2017-12-15 12:38 | Internal Med Progress Note ---
Date of Encounter: 12/15/17 Time of Encounter: 12:25 - Time Spent With Patient Total time spent is greater than 50% in coordination of care (as documented) at patient's floor/unit and/or counseling patient: - Subjective Interval history: Patient seen and examined at bedside. Pain better controlled. Continues to have fevers with Tmax of 101.5 overnight. CTA chest reviewed and pulmonary evaluation requested Pt to undergo bronchoscopy in am - Assessment and plan (1) Acute hypoxemic respiratory failure Current Visit: Yes Status: Acute Assessment and plan: Patient is 100% on RA. Continue nebulizers. Treat pneumonia as below. Patient has a history of mucus plugs and is at risk again. continue pulm toileting (2) Sepsis Current Visit: Yes Status: Acute Assessment and plan: Patient met sepsis criteria with fever, tachycardia, leukocytosis and pneumonia as a source. We will treat as below. Normal lactic acid. Qualifiers: Sepsis type: sepsis due to unspecified organism Qualified Code(s): A41.9 - Sepsis, unspecified organism (3) Pneumonia Current Visit: Yes Status: Acute Assessment and plan: ID evaluation appreciated continue Vancomycin and Zosyn vanco dose adjusted as per vanc trough continue levaquin PUlm evaluation appreciated pt to undergo bronchoscopy in am blood and sputum cultures show NGTD preliminary report will obtain speech therapy for concern for aspirations maintain aspiration precautions Qualifiers: Pneumonia type: due to other aerobic Gram-negative bacteria Laterality: right Lung location: unspecified part of lung Qualified Code(s): J15.6 - Pneumonia due to other Gram-negative bacteria (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 resumed on home meds (5) DVT prophylaxis Current Visit: No Status: Acute Assessment and plan: Heparin subcutaneous (6) Electrolyte abnormality Current Visit: No Status: Acute resolved continue to monitor electrolytes and replace as needed - Constitutional Vitals: Temp Pulse Resp BP Pulse Ox 101.1 F H 89 15 113/73 100 12/15/17 10:42 12/15/17 10:42 12/15/17 11:47 12/15/17 10:42 12/15/17 11:47 General appearance: Present: A&O X 3, no acute distress, obese - Head Head exam: Present: atraumatic, normocephalic - Eye Eye exam: Present: conjuntiva pink, sclera anicteric - Respiratory Respiratory exam: Absent: respiratory distress, wheezes (coarse breath sounds ) - Cardiovascular Cardiovascular exam: Present: RRR, +S1, +S2. Absent: diastolic murmur, gallop, rubs, systolic murmur - GI/Abdominal GI/Abdominal exam: Present: normal bowel sounds, soft, no peritoneal signs. Absent: distended, tenderness - Extremities Exam Extremities exam: Present: warm. Absent: tenderness (s/p b/l LE AKA ) - Neurological Exam Neurological exam: Present: oriented X3 Internal Medicine: Result - Labs CBC & Chem 7: 12/15/17 05:35 12/15/17 05:35 Labs: Short CBC 12/15/17 Range/Units 05:35 WBC 9.1 (4.3-11.1) K/mcL Hgb 11.2 L (12.9-16.9) g/dL Hct 35.1 L (37.5-50.1) % Plt Count 145 (140-400) K/mcL Neutrophils # 7.6 (1.6-8.9) K/mcL BMP 12/15/17 05:35 Sodium 137 Potassium 4.1 Chloride 107 Carbon Dioxide 25 BUN 6 Creatinine 0.59 L Glucose 111 H Calcium 8.5 L - ABG Interpretation ABG results: PT/INR, D-dimer PT 13.6 Seconds (9.4-12.1) H 12/11/17 13:59 D-Dimer 339 ng/mLFEU (0-500) 12/11/17 13:59 - Impressions Impressions Chest CTA 12/14/17 17:18 IMPRESSION: 1. No evidence of pulmonary embolic disease. 2. Multifocal pulmonary infiltrate, right greater than left. Complete lower lobe atelectasis bilaterally with partial gravity dependent left upper lobe atelectasis. Bilateral pleural effusions, right greater than left. 3. Secretions within the tracheobronchial tree. 4. Mediastinal and right hilar adenopathy, likely reactive. D/ / 12/14/2017 18:40:27 Ronal Bullock MD / destinee Interpreting Provider: Ronal Bullock MD Consult Discharge Plan - Plan Referrals: Joseph Pelayo MD [Primary Care Provider] -
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
[2017-12-15] MEDS: diazePAM 10 MG TABLET PO PRN (22:41)
[2017-12-15] MEDS: traZODone 50 MG TABLET PO PRN (22:41)
[2017-12-16] MEDS: *HR* Heparin 5,000 UNIT/ML VIAL SQ SCH ×4 (00:07→23:29)
[2017-12-16] MEDS: Piperacillin/Tazobactam 3.375 GM in 0.9 % Sodium Chloride Mini Bag 100 ML IVPB SCH ×4 (00:08→23:28)
[2017-12-16] MEDS: Ipratropium/Albuterol Neb 3 ML IH SCH ×6 (04:46→23:55)
[2017-12-16] MEDS: *HR* OxyCODONE ER (12 HR) 10 MG TABLET PO SCH ×2 (06:12→18:20)
[2017-12-16 07:05] LABS: Basophils % 0.2 %; Eosinophils # 0.2 K/mcL (0.0-0.6); Hematocrit 35.6 % (37.5-50.1); Hemoglobin 11.6 g/dL (12.9-16.9); Immature Granulocytes % 0.4 % (0-4); Lymphocytes # 0.7 K/mcL (0.6-4.6); Lymphocytes % 7.5 %; Mean Corpuscular HGB Conc 32.6 g/dL (31.6-35.5); Mean Corpuscular Hemoglobin 29.1 pg (28.0-33.3); Mean Corpuscular Volume 89.4 fL (83.0-100.0); Mean Platelet Volume 9.2 fL (9.4-12.4); Monocytes # 0.7 K/mcL (0.0-1.3); Monocytes % 8.3 %; Neutrophils # 7.2 K/mcL (1.6-8.9); Platelet Count 159 K/mcL (140-400); Red Blood Count 3.98 M/mcL (4.19-5.50); Red Cell Distribution Width 13.9 % (11.5-14.5); Segmented Neutrophils % 81.6 %
[2017-12-16 07:35] LABS: BUN/Creatinine Ratio 9 (6-26); Blood Urea Nitrogen 5 mg/dL (6-20); Calcium 8.8 mg/dL (8.6-10.3); Carbon Dioxide 29 mEq/L (23-29); Chloride 103 mEq/L (98-107); Glucose 106 mg/dL (70-105); Magnesium 1.9 mg/dL (1.6-2.6); Osmolality,Calculated 284 (280-300); Phosphorous 3.4 mg/dL (2.7-4.5); Potassium 4.1 mEq/L (3.5-5.1); Sodium 138 mEq/L (136-145); eGFR For African Americans > 60 (> 60); eGFR For Non-African Americans > 60 (> 60)
--- NOTE | 2017-12-16 09:07 | Infectious Disease Progress No ---
Date of Encounter: 12/16/17 Time of Encounter: 08:35 - Assessment and Plan (1) Sepsis Current Visit: Yes Status: Acute Patient met sepsis criteria at the time of admission. 12/16: Improvement in fever trend (24-hour max 101.1), resolution tachycardia maintaining oxygen saturations on oxygen mask. - Day# 6 of broad-spectrum antibiotics including IV vancomycin and Zosyn - Day 3 IV Levaquin 750 mg daily - Blood cultures 2 (12/11) preliminary no growth - Sputum culture (12/11 and 12/14): Many WBC, many epithelial cells, gram- positive cocci and many- specimen did not meet criteria for culture. - Chest x-ray (12/14): Progressive multifocal pneumonia - CTA of the chest (12/14) did not demonstrate PE, It did demonstrate multifocal pulmonary infiltrates, right greater than left, bilateral pleural effusions with right greater than left. Secretions within the tracheobronchial tree. Mediastinal and right hilar adenopathy. - Evaluated by pulmonology with plans for bronchoscopy this afternoon. Qualifiers: Sepsis type: sepsis due to unspecified organism Qualified Code(s): A41.9 - Sepsis, unspecified organism (2) Multifocal pneumonia Current Visit: Yes Status: Acute Chest x-ray and chest CTA concerning for multifocal pneumonia, progressive since admission - Clinically patient is not improved Organism: Unknown at this time - blood culture as mentioned above - Antibiotics IV vancomycin and Zosyn (day 6 of both) - Levaquin IV- daily 3 - Urine Legionella antigen negative - Respiratory infectious panel negative - Pulmonary to perform bronchoscopy today. Plan: - As discussed above. 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 - Continue pulmonary rehabilitation - Management per primary team. (4) Thrombocytopenia Current Visit: Yes Status: Acute Patient has thrombocytopenia in the setting of acute illness. - Continue to monitor and avoid Zyvox antibiotic coverage as could increase the risk of further thrombocytopenia complications. (5) Acute respiratory failure Current Visit: Yes Status: Acute patient has acute respiratory failure with mild improvement on current antibiotic therapy. - Hx of DVT with significant risk factors - Chest CTA negative for PE - Likely secondary to worsening multifocal pneumonia. Qualifiers: Respiratory failure complication: unspecified whether with hypoxia or hypercapnia Qualified Code(s): J96.00 - Acute respiratory failure, unspecified whether with hypoxia or hypercapnia (6) UTI (urinary tract infection) due to urinary indwelling catheter Current Visit: No Status: Acute Urine culture growing enterococcus, sensitivities still pending - Current antibiotic coverage is IV Zosyn Qualifiers: Indwelling urinary catheter type: cystostomy catheter Encounter type: initial encounter Qualified Code(s): T83.510A - Infection and inflammatory reaction due to cystostomy catheter, initial encounter; N39.0 - Urinary tract infection, site not specified; N39.0 - Urinary tract infection, site not specified - Subjective Interval history: Mr. Fritz was seen the patient bedside this morning. His father is there and very supportive. He denies improvement in his shortness of breath, continues to have occasional chills and diaphoresis and coughing with sputum production. He is awaiting bronchoscopy today is hoping this will help in the management of his care. He has no further questions at this time and understands current antibiotic coverage. Infect Dis PN-Objective Data - Labs CBC & Chem 7: 12/16/17 06:53 12/16/17 06:53 Labs: Laboratory Results - last 24 hr 12/16/17 12/16/17 06:53 06:53 WBC 8.9 RBC 3.98 L Hgb 11.6 L Hct 35.6 L MCV 89.4 MCH 29.1 MCHC 32.6 RDW 13.9 Plt Count 159 MPV 9.2 L Immature Gran % 0.4 Seg Neutrophils % 81.6 Lymphocytes % 7.5 Monocytes % 8.3 Eosinophils % 2.0 Basophils % 0.2 Neutrophils # 7.2 Lymphocytes # 0.7 Monocytes # 0.7 Eosinophils # 0.2 Basophils # 0.0 Sodium 138 Potassium 4.1 Chloride 103 Carbon Dioxide 29 BUN 5 L Creatinine 0.57 L Est GFR ( Amer) > 60 Est GFR (Non-Af Amer) > 60 BUN/Creatinine Ratio 9 Glucose 106 H Calculated Osmolality 284 Calcium 8.8 Phosphorus 3.4 Magnesium 1.9 Cultures: Cultures 12/12/17 12:45 Urine Culture - Preliminary Urine,Clean Catch Enterococcus species 12/13/17 14:07 Blood Culture - Preliminary Peripheral Venipuncture No growth. 12/13/17 14:07 Blood Culture - Preliminary Peripheral Venipuncture No growth. 12/14/17 23:15 Sputum Culture - Final Sputum 12/12/17 12:45 Legionella Antigen - Final Urine,Clean Catch Streptococcus pneumoniae Antigen (M - Final 12/11/17 19:45 Sputum Culture - Final Sputum Serology 12/14/17 12/12/17 Range/Units 17:19 12:45 Urine Color Dark Yellow (Yellow) Urine Clarity Turbid A (Clear) Urine pH 7.0 (5.0-8.0) pH Units Ur Specific [place] 1.016 (1.010-1.025) Urine Protein 30 H (Neg-Trace) mg/dL Urine Glucose (UA) Normal (Normal) mg/dL Urine Ketones Negative (Negative) mg/dL Urine Blood Large H (Negative) Urine Nitrite Positive A (Negative) Urine Bilirubin Negative (Negative) Urine Urobilinogen Normal (Normal) mg/dL Ur Leukocyte Esterase Large H (Negative) Urine Microscopic RBC TNTC H (0-3) per hpf Urine Microscopic WBC TNTC H (0-3) per hpf Ur Squamous Epith Cells Moderate H (None-Few) per lpf Urine Bacteria Few (None-Few) per hpf Hyaline Casts None Seen (None-Few) per lpf Chlamy pneumoniae PCR Not Detected (Not Detect) Adenovirus (PCR) Not Detected (Not Detect) B. pertussis DNA (PCR) Not Detected (Not Detect) B.parapertussis DNA PCR Not Detected (Not Detect) Coronavirus OC43 (PCR) Not Detected (Not Detect) Coronavirus HKU1 (PCR) Not Detected (Not Detect) Coronavirus 229E (PCR) Not Detected (Not Detect) Coronavirus NL63 (PCR) Not Detected (Not Detect) Human Metapneumovir PCR Not Detected (Not Detect) Influenza A (H1) PCR Not Detected (Not Detect) Influ A (H1N1/09) PCR Not Detected (Not Detect) Influenza A (H3) PCR Not Detected (Not Detect) Influenza A Untype (PCR) Not Detected (Not Detect) Influenza Type B (PCR) Not Detected (Not Detect) M.pneumoniae DNA (PCR) Not Detected (Not Detect) Parainfluenza 1 (PCR) Not Detected (Not Detect) Parainfluenza 2 (PCR) Not Detected (Not Detect) Parainfluenza 3 (PCR) Not Detected (Not Detect) Parainfluenza 4 (PCR) Not Detected (Not Detect) RSV (PCR) Not Detected (Not Detect) Entero/Rhino (PCR) Not Detected (Not Detect) - Impressions Impressions Chest CTA 12/14/17 17:18 IMPRESSION: 1. No evidence of pulmonary embolic disease. 2. Multifocal pulmonary infiltrate, right greater than left. Complete lower lobe atelectasis bilaterally with partial gravity dependent left upper lobe atelectasis. Bilateral pleural effusions, right greater than left. 3. Secretions within the tracheobronchial tree. 4. Mediastinal and right hilar adenopathy, likely reactive. D/ / 12/14/2017 18:40:27 Ronal Bullock MD / destinee Interpreting Provider: Ronal Bullock MD Shoulder X-Ray 12/15/17 10:04 IMPRESSION: Old healed left clavicular fracture. No acute process of either shoulder. Bilateral lung infiltrates right worse than left. D/ / 12/15/2017 16:19:59 Carmelo Yao MD / sandra Interpreting Provider: Carmelo Yao MD Shoulder X-Ray 12/15/17 10:04 IMPRESSION: Old healed left clavicular fracture. No acute process of either shoulder. Bilateral lung infiltrates right worse than left. D/ / 12/15/2017 16:19:59 Carmelo Yao MD / sandra Interpreting Provider: Carmelo Yao MD Exam - Constitutional Vitals: Temp Pulse Resp BP Pulse Ox 97.7 F 99 15 117/75 94 12/16/17 08:07 12/16/17 08:07 12/16/17 08:07 12/16/17 08:07 12/16/17 08:07 Exam: General: Patient alert, awake, oriented 3, interactive, in no acute distress wearing oxygen mask HEENT: Normocephalic, atraumatic, pupils equal reactive to light,oral mucosa moist, neck supple trachea midline. Chest: Symmetric bilateral correlating with respiratory effort, effort nonlabored. Cardiac: Regular rate and rhythm, positive S1 and S2. no bruits appreciated bilateral carotids, Radial pulses 2+ bilateral, Respiratory: Crackles and wheezing appreciated in bilateral lung bases and peristernal Abdomen: Soft, mild tenderness to palpation, positive bowel sounds, no palpable masses appreciated on examination Extremities: bilateral below the knee amputations with no signs of erythema or edema, poor musculature with muscle spasticity and upper extremity is bilaterally Consult Discharge Plan - Plan Referrals: Joseph Pelayo MD [Primary Care Provider] - - Attending Attestation I examined this patient and my medical decision-making was reviewed with the Resident Physician. I agree with the documented findings, disposition and treatment plan as described except to the extent set forth below. On further questioning, patient apparently has constipation and has not had a bowel movement since admission. Patient usually gets Fleet enemas by his mom to help move his bowels. Parents and patient told me that he does have pain sensation in his abdomen if he has intra-abdominal process. Relate the message to the hospitalist team and nursing staff that the patient has not had a bowel movement since admission. Awaiting bronchoscopy to see what we find on the bronchoscopy Continue broad-spectrum antibiotics Vanco trough is 30 need to dose adjust Monitor labs and for drug toxicity
--- NOTE | 2017-12-16 09:15 | Pre-Sedation Evaluation ---
Pre-sedation evaluation - Pre-sedation checklist Date of procedure: 12/16/17 Procedure: Bronchoscopy Recent Vitals: Last Vital Signs Temp 97.7 F 12/16/17 08:07 Pulse 99 12/16/17 08:07 Resp 15 12/16/17 08:07 BP 117/75 12/16/17 08:07 Pulse Ox 94 12/16/17 08:07 H&P (including ROS) documented in medical record: Yes Previous reaction to sedatives/anesthetics: No Dietary Status: NPO after Midnight Airway Assessment: Patient can open mouth completely, TMJ function normal Dentition: No loose teeth or bridges Possible difficult airway: No ASA Classification *see protocol: CLASS III-Severe systemic disease Plan of Care: Pt appropriate candidate for procedure/moderate/conscious sedation , Risks/benefits of procedure/sedation discussed w/ patient/family
[2017-12-16] MEDS ORDERED: Albuterol 2.5 MG/3 ML NEBULIZER IH ONE (09:17)
[2017-12-16] MEDS ORDERED: Tetracaine/Benzocaine/Butamben 200MG/SPRAY (100SPY/BOT) MM ONE (09:17)
[2017-12-16] MEDS ORDERED: *HR* FentaNYL (PF) 100 MCG/2 ML VIAL IVP ONE (09:17)
[2017-12-16] MEDS ORDERED: *HR* EPINEPHrine 1 MG/10 ML SYRINGE INTRATRACH PRN (09:17)
[2017-12-16] MEDS ORDERED: *HR* Midazolam HCl 2 MG/2 ML VIAL IVP ONE (09:17)
[2017-12-16] MEDS: Levofloxacin 750 MG/150 ML 750 MG/150 ML BAG IVPB SCH (09:18)
[2017-12-16] MEDS: Pregabalin 75 MG CAPSULE PO SCH (09:19)
[2017-12-16] MEDS: Baclofen 10 MG TABLET PO PRN ×2 (09:19→23:29)
--- NOTE | 2017-12-16 10:58 | Internal Med Progress Note ---
Date of Encounter: 12/16/17 Time of Encounter: 10:56 - Time Spent With Patient Total time spent is greater than 50% in coordination of care (as documented) at patient's floor/unit and/or counseling patient: - Subjective Interval history: Pt seen and examined with family present at bedside. Reports of pain being appropriately controlled. No overnight issues reported. Scheduled for Bronchoscopy today Pt reported of being constipated and as per pt and family's wishes, fleet enema to be ordered as pt refuses to take any other stool softeners. pt's mother states that the enema is the only way he is able to move his bowels - Assessment and plan (1) Acute hypoxemic respiratory failure Current Visit: Yes Status: Acute Assessment and plan: Patient is 100% on RA. Continue nebulizers. Treat pneumonia as below. Patient has a history of mucus plugs and is at risk again. continue pulm toileting (2) Sepsis Current Visit: Yes Status: Acute Assessment and plan: Patient met sepsis criteria with fever, tachycardia, leukocytosis and pneumonia as a source. We will treat as below. Normal lactic acid. Qualifiers: Sepsis type: sepsis due to unspecified organism Qualified Code(s): A41.9 - Sepsis, unspecified organism (3) Pneumonia Current Visit: Yes Status: Acute Assessment and plan: ID evaluation appreciated continue Vancomycin and Zosyn vanco dose adjusted as per vanc trough continue levaquin PUlm evaluation appreciated pt to undergo bronchoscopy today (12/16/17) sputum culture reported Staph aureus speech therapy evaluation appreciated, diet adjusted as per their recommendations maintain aspiration precautions Qualifiers: Pneumonia type: due to other aerobic Gram-negative bacteria Laterality: right Lung location: unspecified part of lung Qualified Code(s): J15.6 - Pneumonia due to other Gram-negative bacteria (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 resumed on home meds (5) DVT prophylaxis Current Visit: No Status: Acute Assessment and plan: Heparin subcutaneous (6) Electrolyte abnormality Current Visit: No Status: Acute resolved continue to monitor electrolytes and replace as needed - Constitutional Vitals: Temp Pulse Resp BP Pulse Ox 97.7 F 99 15 117/75 94 12/16/17 08:07 12/16/17 08:07 12/16/17 08:07 12/16/17 08:07 12/16/17 10:34 General appearance: Present: A&O X 3 (quadriplegic with contracted upper extremities ), no acute distress, obese - Head Head exam: Present: atraumatic, normocephalic - Eye Eye exam: Present: conjuntiva pink, sclera anicteric - Respiratory Respiratory exam: Absent: respiratory distress, wheezes (diffuse rhonchi ) - Cardiovascular Cardiovascular exam: Present: RRR, +S1, +S2. Absent: diastolic murmur, gallop, rubs, systolic murmur - GI/Abdominal GI/Abdominal exam: Present: normal bowel sounds (suprapubic catheter in place ) , soft. Absent: tenderness - Extremities Exam Extremities exam: Present: warm, radial pulses palpable and symmetrical. Absent : calf tenderness (b/l LE BKA ) - Neurological Exam Neurological exam: Present: oriented X3 Internal Medicine: Result - Labs CBC & Chem 7: 12/16/17 06:53 12/16/17 06:53 Labs: Short CBC 12/16/17 Range/Units 06:53 WBC 8.9 (4.3-11.1) K/mcL Hgb 11.6 L (12.9-16.9) g/dL Hct 35.6 L (37.5-50.1) % Plt Count 159 (140-400) K/mcL Neutrophils # 7.2 (1.6-8.9) K/mcL BMP 12/16/17 06:53 Sodium 138 Potassium 4.1 Chloride 103 Carbon Dioxide 29 BUN 5 L Creatinine 0.57 L Glucose 106 H Calcium 8.8 - ABG Interpretation ABG results: PT/INR, D-dimer PT 13.6 Seconds (9.4-12.1) H 12/11/17 13:59 D-Dimer 339 ng/mLFEU (0-500) 12/11/17 13:59 - Impressions Impressions Chest CTA 12/14/17 17:18 IMPRESSION: 1. No evidence of pulmonary embolic disease. 2. Multifocal pulmonary infiltrate, right greater than left. Complete lower lobe atelectasis bilaterally with partial gravity dependent left upper lobe atelectasis. Bilateral pleural effusions, right greater than left. 3. Secretions within the tracheobronchial tree. 4. Mediastinal and right hilar adenopathy, likely reactive. D/ / 12/14/2017 18:40:27 Ronal Bullock MD / destinee Interpreting Provider: Ronal Bullock MD Shoulder X-Ray 12/15/17 10:04 IMPRESSION: Old healed left clavicular fracture. No acute process of either shoulder. Bilateral lung infiltrates right worse than left. D/ / 12/15/2017 16:19:59 Carmelo Yao MD / sandra Interpreting Provider: Carmelo Yao MD Shoulder X-Ray 12/15/17 10:04 IMPRESSION: Old healed left clavicular fracture. No acute process of either shoulder. Bilateral lung infiltrates right worse than left. D/ / 12/15/2017 16:19:59 Carmelo Yao MD / sandra Interpreting Provider: Carmelo Yao MD Consult Discharge Plan - Plan Referrals: Joseph Pelayo MD [Primary Care Provider] -
[2017-12-16] MEDS: Acetaminophen 325 MG TABLET PO PRN ×2 (12:27→19:04)
[2017-12-16] MEDS ORDERED: *HR* Midazolam HCl 5 MG/5 ML VIAL IVP ONE (14:20)
[2017-12-16] MEDS ORDERED: *HR* FentaNYL (PF) 100 MCG/2 ML VIAL ONE (14:21)
[2017-12-16] MEDS: Sennosides/Docusate Sodium TABLET PO SCH ×2 (15:33→21:54)
[2017-12-16] MEDS: diazePAM 10 MG TABLET PO PRN (23:29)
[2017-12-16] MEDS: traZODone 50 MG TABLET PO PRN (23:29)
[2017-12-17] MEDS: Acetaminophen 325 MG TABLET PO PRN ×2 (03:38→10:16)
[2017-12-17] MEDS: Ipratropium/Albuterol Neb 3 ML IH SCH ×6 (03:45→23:59)
[2017-12-17] MEDS: *HR* OxyCODONE ER (12 HR) 10 MG TABLET PO SCH ×2 (06:36→18:19)
[2017-12-17 07:04] LABS: BUN/Creatinine Ratio 14 (6-26); Blood Urea Nitrogen 7 mg/dL (6-20); Calcium 8.7 mg/dL (8.6-10.3); Carbon Dioxide 28 mEq/L (23-29); Chloride 108 mEq/L (98-107); Glucose 94 mg/dL (70-105); Osmolality,Calculated 286 (280-300); Phosphorous 2.5 mg/dL (2.7-4.5); Potassium 3.5 mEq/L (3.5-5.1); Sodium 139 mEq/L (136-145); eGFR For African Americans > 60 (> 60); eGFR For Non-African Americans > 60 (> 60)
[2017-12-17] MEDS: *HR* OxyCODONE Immed Rel 15 MG TABLET PO PRN (07:18)
[2017-12-17 07:31] LABS: Basophils % 0.4 %; Eosinophils # 0.1 K/mcL (0.0-0.6); Eosinophils % 1.7 %; Hematocrit 37.4 % (37.5-50.1); Hemoglobin 12.2 g/dL (12.9-16.9); Immature Granulocytes % 1.6 % (0-4); Lymphocytes # 1.1 K/mcL (0.6-4.6); Lymphocytes % 12.8 %; Mean Corpuscular HGB Conc 32.6 g/dL (31.6-35.5); Mean Corpuscular Hemoglobin 29.3 pg (28.0-33.3); Mean Corpuscular Volume 89.9 fL (83.0-100.0); Mean Platelet Volume 9.1 fL (9.4-12.4); Monocytes # 0.8 K/mcL (0.0-1.3); Neutrophils # 6.2 K/mcL (1.6-8.9); Platelet Count 229 K/mcL (140-400); Red Blood Count 4.16 M/mcL (4.19-5.50); Red Cell Distribution Width 13.7 % (11.5-14.5); Segmented Neutrophils % 74.5 %
--- NOTE | 2017-12-17 08:54 | Pulmonology Progress Note ---
Date of Encounter: 12/17/17 Time of Encounter: 08:52 Assessment and Plan (1) Acute hypoxemic respiratory failure Current Visit: Yes Status: Acute This is secondary to pneumonia with thick mucoid secretions that he has difficulty with mobilizing because of cervical spine injury. He will need continued bronchopulmonary toileting and as I explained to the patient and his family at bedside I suspect this will be an ongoing issue May benefit from cough support device which can be arranged in the outpatient setting with pulmonary follow-up (2) Multifocal pneumonia Current Visit: Yes Status: Acute BAL was performed in the right middle lobe pending microbiological and cytological interpretation Infectious disease managing antimicrobial selection Overall clinical course appears to be improving although infectious etiology remains unclear at this time (3) Mucus plugging of bronchi Current Visit: No Status: Acute Status post bronchoscopy with extensive secretions throughout the right tracheobronchial tree most notably in the right lower lobe but also noted on the right tracheobronchial tree but to a much less degree. Subjective Principal diagnosis: Pneumonia Interval history: Tolerated bronchoscopy without untoward effect. Oxygen requirement has been trending down. He has a low-grade fever today but overall fever curve appears to be improving clinically he says he feels a bit better Objective PUL Vital signs: Last Vital Signs Temp 100.3 F H 12/17/17 07:39 Pulse 82 12/17/17 07:39 Resp 18 12/17/17 08:46 BP 105/75 12/17/17 07:39 Pulse Ox 100 12/17/17 08:46 General appearance: no acute distress Auscultation: bilateral: rhonchi Cardiovascular: regular rate and rhythm normal mental status, non-focal exam Results - Laboratory Findings CBC and BMP: 12/17/17 06:12 12/17/17 06:12 PT/INR, D-dimer PT 13.6 Seconds (9.4-12.1) H 12/11/17 13:59 D-Dimer 339 ng/mLFEU (0-500) 12/11/17 13:59 Abnormal lab findings: Abnormal lab results RBC 4.16 M/mcL (4.19-5.50) L 12/17/17 06:12 Hgb 12.2 g/dL (12.9-16.9) L 12/17/17 06:12 Hct 37.4 % (37.5-50.1) L 12/17/17 06:12 MPV 9.1 fL (9.4-12.4) L 12/17/17 06:12 Nucleated RBCs/100 WBC 0.3 /100 WBC (0) H 12/13/17 05:11 Platelet Estimate Slight Decrease (Normal) L 12/14/17 05:33 PT 13.6 Seconds (9.4-12.1) H 12/11/17 13:59 Chloride 108 mEq/L (98-107) H 12/17/17 06:12 Creatinine 0.49 mg/dL (0.70-1.30) L 12/17/17 06:12 Phosphorus 2.5 mg/dL (2.7-4.5) L 12/17/17 06:12 Procalcitonin 0.34 ng/mL (<=0.10) H 12/14/17 16:30 Urine Clarity Turbid (Clear) A 12/12/17 12:45 Urine Protein 30 mg/dL (Neg-Trace) H 12/12/17 12:45 Urine Blood Large (Negative) H 12/12/17 12:45 Urine Nitrite Positive (Negative) A 12/12/17 12:45 Ur Leukocyte Esterase Large (Negative) H 12/12/17 12:45 Urine Microscopic RBC TNTC per hpf (0-3) H 12/12/17 12:45 Urine Microscopic WBC TNTC per hpf (0-3) H 12/12/17 12:45 Ur Squamous Epith Cells Moderate per lpf (None-Few) H 12/12/17 12:45 Vancomycin Trough 17 mcg/mL (5-10) H 12/17/17 06:12 - Microbiology Findings Microbiology Findings: Microbiology, Last 48 Hours 12/14/17 16:30 Blood Culture - Preliminary Peripheral Venipuncture No growth. 12/14/17 16:30 Blood Culture - Preliminary Peripheral Venipuncture No growth. 12/12/17 12:45 Urine Culture - Final Urine,Clean Catch Enterococcus faecalis 12/13/17 14:07 Blood Culture - Preliminary Peripheral Venipuncture No growth. 12/13/17 14:07 Blood Culture - Preliminary Peripheral Venipuncture No growth. - Clinical Findings Intake & Output: Intake & Output 12/16/17 12/17/17 12/17/17 23:59 07:59 15:59 Intake Total 350 / 350 120 / 120 Output Total 1350 / 1350 1600 / 1600 Balance -1000 / -1000 -1600 / -1600 120 / 120 Weight 75.3 kg Consult Discharge Plan - Plan Referrals: Joseph Pelayo MD [Primary Care Provider] -
--- NOTE | 2017-12-17 09:37 | Infectious Disease Progress No ---
Date of Encounter: 12/17/17 Time of Encounter: 08:25 - Assessment and Plan (1) Sepsis Current Visit: Yes Status: Acute Patient met sepsis criteria at the time of admission. 12/17: Continues to have low-grade fever chest then stable, no tachycardia, tachypnea or hypotension. Continues to require oxygen mask at this time.. - Day# 7 of broad-spectrum antibiotics including IV vancomycin and Zosyn - Day 4 IV Levaquin 750 mg daily - Blood cultures 2 (12/11) preliminary no growth - Sputum culture (12/11 and 12/14): Many WBC, many epithelial cells, gram- positive cocci and many- specimen did not meet criteria for culture. - Chest x-ray (12/14): Progressive multifocal pneumonia - CTA of the chest (12/14) did not demonstrate PE, It did demonstrate multifocal pulmonary infiltrates, right greater than left, bilateral pleural effusions with right greater than left. Secretions within the tracheobronchial tree. Mediastinal and right hilar adenopathy. - Evaluated by pulmonology, underwent bronchoscopy 12/16/2017 which demonstrated mucous plug in the right middle lung, cultures collected with pending results. Qualifiers: Sepsis type: sepsis due to unspecified organism Qualified Code(s): A41.9 - Sepsis, unspecified organism (2) Multifocal pneumonia Current Visit: Yes Status: Acute Chest x-ray and chest CTA concerning for multifocal pneumonia, progressive since admission - Clinically patient is not improved Organism: Unknown at this time - blood culture as mentioned above - Antibiotics IV vancomycin and Zosyn (day 7 of both) - Levaquin IV- daily 4 - Urine Legionella antigen negative - Respiratory infectious panel negative - Bronchial collection still pending Plan: - As discussed above. 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 - Continue pulmonary rehabilitation - Management per primary team. (4) Thrombocytopenia Current Visit: Yes Status: Acute Patient has thrombocytopenia in the setting of acute illness. - Continue to monitor and avoid Zyvox antibiotic coverage as could increase the risk of further thrombocytopenia complications. (5) Acute respiratory failure Current Visit: Yes Status: Acute patient has acute respiratory failure with mild improvement on current antibiotic therapy. - Hx of DVT with significant risk factors - Chest CTA negative for PE - Likely secondary to worsening multifocal pneumonia. - Discussed weaning oxygen with nursing, maintaining oxygen saturations greater than 90%. Qualifiers: Respiratory failure complication: unspecified whether with hypoxia or hypercapnia Qualified Code(s): J96.00 - Acute respiratory failure, unspecified whether with hypoxia or hypercapnia (6) UTI (urinary tract infection) due to urinary indwelling catheter Current Visit: No Status: Acute Urine culture growing enterococcus, resistant to doxycycline - Current antibiotic coverage is IV Zosyn day 7 Qualifiers: Indwelling urinary catheter type: cystostomy catheter Encounter type: initial encounter Qualified Code(s): T83.510A - Infection and inflammatory reaction due to cystostomy catheter, initial encounter; N39.0 - Urinary tract infection, site not specified; N39.0 - Urinary tract infection, site not specified - Subjective Interval history: Mr. Fritz was seen the patient bedside this morning. He is alert awake interactive and in no acute distress. He states that he has diffuse pain after assisted help with sputum expulsion. He states that he has had feelings of feverish overnight but denies any excessive chills or sweating. He is tolerating oxygen mask, continues to have poor appetite and sputum production has been decreased. He denies any other concerns or complaints at this time. Infect Dis PN-Objective Data - Labs CBC & Chem 7: 12/17/17 06:12 12/17/17 06:12 Labs: Laboratory Results - last 24 hr 12/14/17 12/17/17 12/17/17 16:30 06:12 06:12 WBC 8.4 RBC 4.16 L Hgb 12.2 L Hct 37.4 L MCV 89.9 MCH 29.3 MCHC 32.6 RDW 13.7 Plt Count 229 MPV 9.1 L Immature Gran % 1.6 Seg Neutrophils % 74.5 Lymphocytes % 12.8 Monocytes % 9.0 Eosinophils % 1.7 Basophils % 0.4 Neutrophils # 6.2 Lymphocytes # 1.1 Monocytes # 0.8 Eosinophils # 0.1 Basophils # 0.0 Sodium Potassium Chloride Carbon Dioxide BUN Creatinine Est GFR ( Amer) Est GFR (Non-Af Amer) BUN/Creatinine Ratio Glucose Calculated Osmolality Calcium Phosphorus Magnesium Procalcitonin 0.34 H Vancomycin Trough 17 H 12/17/17 06:12 WBC RBC Hgb Hct MCV MCH MCHC RDW Plt Count MPV Immature Gran % Seg Neutrophils % Lymphocytes % Monocytes % Eosinophils % Basophils % Neutrophils # Lymphocytes # Monocytes # Eosinophils # Basophils # Sodium 139 Potassium 3.5 Chloride 108 H Carbon Dioxide 28 BUN 7 Creatinine 0.49 L Est GFR ( Amer) > 60 Est GFR (Non-Af Amer) > 60 BUN/Creatinine Ratio 14 Glucose 94 Calculated Osmolality 286 Calcium 8.7 Phosphorus 2.5 L Magnesium 2.0 Procalcitonin Vancomycin Trough Cultures: Cultures 12/14/17 16:30 Blood Culture - Preliminary Peripheral Venipuncture No growth. 12/14/17 16:30 Blood Culture - Preliminary Peripheral Venipuncture No growth. 12/12/17 12:45 Urine Culture - Final Urine,Clean Catch Enterococcus faecalis 12/13/17 14:07 Blood Culture - Preliminary Peripheral Venipuncture No growth. 12/13/17 14:07 Blood Culture - Preliminary Peripheral Venipuncture No growth. 12/14/17 23:15 Sputum Culture - Final Sputum 12/12/17 12:45 Legionella Antigen - Final Urine,Clean Catch Streptococcus pneumoniae Antigen (M - Final 12/11/17 19:45 Sputum Culture - Final Sputum Serology 12/14/17 12/12/17 Range/Units 17:19 12:45 Urine Color Dark Yellow (Yellow) Urine Clarity Turbid A (Clear) Urine pH 7.0 (5.0-8.0) pH Units Ur Specific [place] 1.016 (1.010-1.025) Urine Protein 30 H (Neg-Trace) mg/dL Urine Glucose (UA) Normal (Normal) mg/dL Urine Ketones Negative (Negative) mg/dL Urine Blood Large H (Negative) Urine Nitrite Positive A (Negative) Urine Bilirubin Negative (Negative) Urine Urobilinogen Normal (Normal) mg/dL Ur Leukocyte Esterase Large H (Negative) Urine Microscopic RBC TNTC H (0-3) per hpf Urine Microscopic WBC TNTC H (0-3) per hpf Ur Squamous Epith Cells Moderate H (None-Few) per lpf Urine Bacteria Few (None-Few) per hpf Hyaline Casts None Seen (None-Few) per lpf Chlamy pneumoniae PCR Not Detected (Not Detect) Adenovirus (PCR) Not Detected (Not Detect) B. pertussis DNA (PCR) Not Detected (Not Detect) B.parapertussis DNA PCR Not Detected (Not Detect) Coronavirus OC43 (PCR) Not Detected (Not Detect) Coronavirus HKU1 (PCR) Not Detected (Not Detect) Coronavirus 229E (PCR) Not Detected (Not Detect) Coronavirus NL63 (PCR) Not Detected (Not Detect) Human Metapneumovir PCR Not Detected (Not Detect) Influenza A (H1) PCR Not Detected (Not Detect) Influ A (H1N1/09) PCR Not Detected (Not Detect) Influenza A (H3) PCR Not Detected (Not Detect) Influenza A Untype (PCR) Not Detected (Not Detect) Influenza Type B (PCR) Not Detected (Not Detect) M.pneumoniae DNA (PCR) Not Detected (Not Detect) Parainfluenza 1 (PCR) Not Detected (Not Detect) Parainfluenza 2 (PCR) Not Detected (Not Detect) Parainfluenza 3 (PCR) Not Detected (Not Detect) Parainfluenza 4 (PCR) Not Detected (Not Detect) RSV (PCR) Not Detected (Not Detect) Entero/Rhino (PCR) Not Detected (Not Detect) - Impressions Impressions KUB X-Ray 12/16/17 11:33 IMPRESSION: Nonobstructive bowel gas pattern. Moderate stool burden within the colon. 15 mm calcification in right upper quadrant may represent a renal stone. Severe bilateral hip degenerative changes. D/ / 12/16/2017 15:29:17 Artur Odom MD / [facility] Interpreting Provider: Artur Odom MD Exam - Constitutional Vitals: Temp Pulse Resp BP Pulse Ox 100.3 F H 82 18 105/75 100 12/17/17 07:39 12/17/17 07:39 12/17/17 08:46 12/17/17 07:39 12/17/17 08:46 Exam: General: Patient alert, interactive, no acute distress HEENT: Normocephalic, atraumatic, oral mucosa dry,, neck supple trachea midline no palpable lymphadenopathy Chest: Symmetric bilateral correlating with respiratory effort, effort nonlabored. Cardiac: Irregularly irregular heart rate and rhythm, radial pulses 2+ bilateral Respiratory: Bronchial congestion Abdomen: Soft, morbidly obese, nontender, + bowel sounds, midline hernia, no palpable masses appreciated on examination Extremities: Symmetric bilateral, bilateral lower studies demonstrate venous stasis with mild edema. No noticed ulcers or wounds. Neurologic: No focal deficits appreciated on examination. Face symmetric, muscle strength symmetric bilateral upper and lower extremities. Consult Discharge Plan - Plan Referrals: Joseph Pelayo MD [Primary Care Provider] - - Attending Attestation I examined this patient and my medical decision-making was reviewed with the Resident Physician. I agree with the documented findings, disposition and treatment plan as described except to the extent set forth below. Patient has what could be and nephrolithiasis is 15 mm in diameter. Patient also is impacted with stool. I appreciate the hospitalist recommendation. Awaiting bronchoscopy cultures and results.
[2017-12-17] MEDS: *HR* Heparin 5,000 UNIT/ML VIAL SQ SCH ×2 (09:50→17:29)
[2017-12-17] MEDS: Pregabalin 75 MG CAPSULE PO SCH (10:17)
[2017-12-17] MEDS: Sennosides/Docusate Sodium TABLET PO SCH (10:17)
[2017-12-17] MEDS: Piperacillin/Tazobactam 3.375 GM in 0.9 % Sodium Chloride Mini Bag 100 ML IVPB SCH ×2 (10:18→17:29)
[2017-12-17] MEDS: Baclofen 10 MG TABLET PO PRN (10:18)
[2017-12-17] MEDS: Levofloxacin 750 MG/150 ML 750 MG/150 ML BAG IVPB SCH (10:19)
[2017-12-17] MEDS ORDERED: *HR* OxyCODONE Immed Rel 15 MG TABLET PO PRN (11:30)
[2017-12-17 13:19] LABS: Appearance of Body Fluid Cloudy (Clear); Source of Body Fluid right middle lobe BA; Volume of Body Fluid 19 mL
[2017-12-17] MEDS ORDERED: *HR* OxyCODONE Immed Rel 5 MG TABLET PO PRN ×2 (14:30→16:11)
--- NOTE | 2017-12-17 16:44 | Internal Med Progress Note ---
Date of Encounter: 12/17/17 Time of Encounter: 13:25 - Time Spent With Patient Total time spent is greater than 50% in coordination of care (as documented) at patient's floor/unit and/or counseling patient: - Subjective Interval history: Pt seen and examined at bedside. reports of pain not being appropriately controlled, pain meds adjusted. KUB reported concerns for a renal stone. CT abd/pelvis requested s/p bronchoscopy, s/p BAL, awaiting microbiological and cytological interpretation - Assessment and plan (1) Acute hypoxemic respiratory failure Current Visit: Yes Status: Acute Assessment and plan: Patient is 100% on RA. Continue nebulizers. Treat pneumonia as below. Patient has a history of mucus plugs and is at risk again. continue pulm toileting (2) Sepsis Current Visit: Yes Status: Acute Assessment and plan: Patient met sepsis criteria with fever, tachycardia, leukocytosis and pneumonia as a source. We will treat as below. Normal lactic acid. Qualifiers: Sepsis type: sepsis due to unspecified organism Qualified Code(s): A41.9 - Sepsis, unspecified organism (3) Pneumonia Current Visit: Yes Status: Acute Assessment and plan: ID evaluation appreciated continue Vancomycin and Zosyn vanco dose adjusted as per vanc trough continue levaquin PUlm evaluation appreciated s/p bronchoscopy (12/16/17), awaiting microbiological and cytological interpretation; noted to have extensive secretions throughout the right tracheobronchial tree sputum culture reported Staph aureus speech therapy evaluation appreciated, diet adjusted as per their recommendations maintain aspiration precautions Qualifiers: Pneumonia type: due to other aerobic Gram-negative bacteria Laterality: right Lung location: unspecified part of lung Qualified Code(s): J15.6 - Pneumonia due to other Gram-negative bacteria (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 resumed on home meds (5) DVT prophylaxis Current Visit: No Status: Acute Assessment and plan: Heparin subcutaneous (6) Electrolyte abnormality Current Visit: No Status: Acute hypophosphatemia Phos supplemented continue to monitor electrolytes and replace as needed (7) UTI Current Visit: No Status: Acute Urine culture positive for enterococcus faecalis, continue current abx - Constitutional Vitals: Temp Pulse Resp BP Pulse Ox 98.7 F 91 18 100/67 94 12/17/17 11:58 12/17/17 11:58 12/17/17 15:39 12/17/17 15:00 12/17/17 15:39 General appearance: Present: A&O X 3 (quadriplegic with contracted upper extremities ), no acute distress, obese - Head Head exam: Present: atraumatic, normocephalic - Eye Eye exam: Present: conjuntiva pink, sclera anicteric - Respiratory Respiratory exam: Absent: respiratory distress, wheezes (coarse breath sounds, rhonchi) - Cardiovascular Cardiovascular exam: Present: RRR, +S1, +S2. Absent: diastolic murmur, gallop, rubs, systolic murmur - GI/Abdominal GI/Abdominal exam: Present: normal bowel sounds, soft, no peritoneal signs. Absent: distended, tenderness - Extremities Exam Extremities exam: Present: warm, radial pulses palpable and symmetrical (s/p B/ L BKA) - Neurological Exam Neurological exam: Present: oriented X3 Internal Medicine: Result - Labs CBC & Chem 7: 12/17/17 06:12 12/17/17 06:12 Labs: Short CBC 12/17/17 Range/Units 06:12 WBC 8.4 (4.3-11.1) K/mcL Hgb 12.2 L (12.9-16.9) g/dL Hct 37.4 L (37.5-50.1) % Plt Count 229 (140-400) K/mcL Neutrophils # 6.2 (1.6-8.9) K/mcL BMP 12/17/17 06:12 Sodium 139 Potassium 3.5 Chloride 108 H Carbon Dioxide 28 BUN 7 Creatinine 0.49 L Glucose 94 Calcium 8.7 - ABG Interpretation ABG results: PT/INR, D-dimer PT 13.6 Seconds (9.4-12.1) H 12/11/17 13:59 D-Dimer 339 ng/mLFEU (0-500) 12/11/17 13:59 Consult Discharge Plan - Plan Referrals: Joseph Pelayo MD [Primary Care Provider] - (please call upon discharge, per ocp office...)
[2017-12-18 00:23] LABS: Bilirubin,Urine Negative (Negative); Blood,Urine Moderate (Negative); Clarity,Urine Cloudy (Clear); Color,Urine Dark Yellow (Yellow); Glucose,Urine (UA) Normal (Normal); Ketones,Urine Negative (Negative); Leukocyte Esterase,Urine Moderate (Negative); Nitrite,Urine Negative (Negative); PH,Urine 6.5 pH Units (5.0-8.0); Protein,Urine 30 mg/dL (Neg-Trace); Urobilinogen,Urine Normal (Normal)
[2017-12-18 00:25] LABS: Hyaline Casts,Urine Few per lpf (None-Few); RBC,Urine 50-100 per hpf (0-3); Squamous Epithelial Cell,Urine Many per lpf (None-Few); WBC,Urine 30-50 per hpf (0-3)
[2017-12-18 00:40] LABS: Bacteria,Urine Few per hpf (None-Few)
[2017-12-18] MEDS: traZODone 50 MG TABLET PO PRN (00:49)
[2017-12-18] MEDS: Baclofen 10 MG TABLET PO SCH ×2 (00:49→09:19)
[2017-12-18] MEDS: Sennosides/Docusate Sodium TABLET PO SCH ×3 (00:49→21:03)
[2017-12-18] MEDS: diazePAM 10 MG TABLET PO PRN (00:49)
[2017-12-18] MEDS: *HR* Heparin 5,000 UNIT/ML VIAL SQ SCH ×3 (01:15→15:00)
[2017-12-18] MEDS: Piperacillin/Tazobactam 3.375 GM in 0.9 % Sodium Chloride Mini Bag 100 ML IVPB SCH ×4 (01:17→23:40)
[2017-12-18] MEDS: Acetaminophen 325 MG TABLET PO PRN ×2 (02:09→14:42)
[2017-12-18] MEDS: Ipratropium/Albuterol Neb 3 ML IH SCH ×6 (04:54→23:59)
[2017-12-18 06:03] LABS: Basophils % 0.4 %; Eosinophils # 0.3 K/mcL (0.0-0.6); Eosinophils % 3.6 %; Hematocrit 34.8 % (37.5-50.1); Hemoglobin 11.2 g/dL (12.9-16.9); Immature Granulocytes % 1.3 % (0-4); Lymphocytes % 13.2 %; Mean Corpuscular HGB Conc 32.2 g/dL (31.6-35.5); Mean Corpuscular Hemoglobin 29.1 pg (28.0-33.3); Mean Corpuscular Volume 90.4 fL (83.0-100.0); Mean Platelet Volume 8.7 fL (9.4-12.4); Monocytes # 0.6 K/mcL (0.0-1.3); Monocytes % 7.2 %; Neutrophils # 5.8 K/mcL (1.6-8.9); Platelet Count 224 K/mcL (140-400); Red Blood Count 3.85 M/mcL (4.19-5.50); Red Cell Distribution Width 13.9 % (11.5-14.5); Segmented Neutrophils % 74.3 %
[2017-12-18 06:23] LABS: BUN/Creatinine Ratio 11 (6-26); Blood Urea Nitrogen 6 mg/dL (6-20); Calcium 8.8 mg/dL (8.6-10.3); Carbon Dioxide 30 mEq/L (23-29); Chloride 103 mEq/L (98-107); Glucose 101 mg/dL (70-105); Magnesium 1.9 mg/dL (1.6-2.6); Osmolality,Calculated 286 (280-300); Phosphorous 3.5 mg/dL (2.7-4.5); Potassium 3.9 mEq/L (3.5-5.1); Sodium 139 mEq/L (136-145); eGFR For African Americans > 60 (> 60); eGFR For Non-African Americans > 60 (> 60)
[2017-12-18] MEDS: *HR* OxyCODONE ER (12 HR) 10 MG TABLET PO SCH ×2 (06:44→17:59)
[2017-12-18] MEDS: 0.9 % Sodium Chloride 1,000 ML IVC SCH (07:59)
[2017-12-18] MEDS: Ringers Solution, Lactated 1,000 ML IVC SCH (08:04)
--- NOTE | 2017-12-18 08:37 | Infectious Disease Progress No ---
Date of Encounter: 12/18/17 Time of Encounter: 08:36 - Assessment and Plan (1) Sepsis Current Visit: Yes Status: Acute Patient met sepsis criteria at the time of admission. 12/18: Continues to have low-grade fever, no tachycardia, tachypnea or hypotension. Continues to require oxygen mask with increased oxygen demand at this time. - Day# 8 of broad-spectrum antibiotics including IV vancomycin and Zosyn - D/C'd IV Levaquin 750 mg daily on 12/17/17 - Blood cultures 2 (12/11) preliminary no growth - Sputum culture (12/11 and 12/14): Many WBC, many epithelial cells, gram- positive cocci and many- specimen did not meet criteria for culture. - Gram stain from bronchoscopy has no growth. - Chest x-ray (12/14): Progressive multifocal pneumonia - CTA of the chest (12/14) did not demonstrate PE, It did demonstrate multifocal pulmonary infiltrates, right greater than left, bilateral pleural effusions with right greater than left. Secretions within the tracheobronchial tree. Mediastinal and right hilar adenopathy. - Evaluated by pulmonology, underwent bronchoscopy 12/16/2017 which demonstrated mucous plug in the right middle lung, cultures - no growth. Qualifiers: Sepsis type: sepsis due to unspecified organism Qualified Code(s): A41.9 - Sepsis, unspecified organism (2) Multifocal pneumonia Current Visit: Yes Status: Acute Chest x-ray and chest CTA concerning for multifocal pneumonia, progressive since admission - Clinically patient is not improved Organism: Unknown at this time - blood culture as mentioned above - Antibiotics IV vancomycin and Zosyn (day 8 of both) - Urine Legionella antigen negative - Respiratory infectious panel negative - Bronchial collection with no growth Pro calcitonin from 12/14/2017 0.34 ESR 109, CRP 176- concerning elevations. - Urine culture from 12/17/[address] with oral contrast of the abdomen and pelvis did not demonstrate any interval changes the abdominal cavity, bilateral lung bases were visualized with filling defects in the lower lobe bronchi concerning for aspirates. - Patient may benefit from swallow evaluation, consider current mucus plugging with increased oxygen demand. Plan: - As discussed above. 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 - Continue pulmonary rehabilitation - Management per primary team. (4) Thrombocytopenia Current Visit: Yes Status: Acute Patient has thrombocytopenia in the setting of acute illness. - Continue to monitor and avoid Zyvox antibiotic coverage as could increase the risk of further thrombocytopenia complications. (5) Acute respiratory failure Current Visit: Yes Status: Acute patient has acute respiratory failure with mild improvement on current antibiotic therapy. - Hx of DVT with significant risk factors - Chest CTA negative for PE - Likely secondary to worsening multifocal pneumonia and mucous plugging - Currently there is potential concern for aspiration and may benefit from swallow evaluation. He is also demonstrating diminished breath sounds in bilateral lung bases with increased risk of mucous plugging given the significant increase in oxygen demand and difficulty clearing his airway. Qualifiers: Respiratory failure complication: unspecified whether with hypoxia or hypercapnia Qualified Code(s): J96.00 - Acute respiratory failure, unspecified whether with hypoxia or hypercapnia (6) UTI (urinary tract infection) due to urinary indwelling catheter Current Visit: No Status: Acute Urine culture growing enterococcus, resistant to doxycycline - Current antibiotic coverage is IV Zosyn and vancomycin day 8 - Duration likely complete. Qualifiers: Indwelling urinary catheter type: cystostomy catheter Encounter type: initial encounter Qualified Code(s): T83.510A - Infection and inflammatory reaction due to cystostomy catheter, initial encounter; N39.0 - Urinary tract infection, site not specified; N39.0 - Urinary tract infection, site not specified - Subjective Interval history: Mr. Fritz was seen the patient bedside this morning. He is alert awake interactive and in no acute distress. He is currently on 10 L Oxymizer mask, states that he feels like he has continued difficulty clearing the sputum from his chest. Given avoiding taking deep breaths as he is worried about pulling more mucus down into his lung bases. He denies any fevers, chills, diaphoresis or other continuing complaints. His father at bedside is concerned about the increased need for oxygen.. Infect Dis PN-Objective Data - Labs CBC & Chem 7: 12/18/17 05:40 12/18/17 05:40 Labs: Laboratory Results - last 24 hr 12/16/17 12/17/17 12/17/17 14:50 06:12 18:19 WBC RBC Hgb Hct MCV MCH MCHC RDW Plt Count MPV Immature Gran % Seg Neutrophils % Lymphocytes % Monocytes % Eosinophils % Basophils % Neutrophils # Lymphocytes # Monocytes # Eosinophils # Basophils # ESR 109 H Sodium Potassium Chloride Carbon Dioxide BUN Creatinine Est GFR ( Amer) Est GFR (Non-Af Amer) BUN/Creatinine Ratio Glucose Calculated Osmolality Calcium Phosphorus Magnesium C-Reactive Protein Urine Color Dark Yellow Urine Clarity Cloudy A Urine pH 6.5 Ur Specific Leigh 1.020 Urine Protein 30 H Urine Glucose (UA) Normal Urine Ketones Negative Urine Blood Moderate H Urine Nitrite Negative Urine Bilirubin Negative Urine Urobilinogen Normal Ur Leukocyte Esterase Moderate H Urine Microscopic RBC 50-100 H Urine Microscopic WBC 30-50 H Ur Squamous Epith Cells Many H Urine Bacteria Few Hyaline Casts Few Ur Culture Indicated? NO. Fluid Source right middle lobe BA Fluid Volume 19 Fluid Appearance Cloudy A Fluid RBC 0.002 Fld Tot Nucleated Cell 1301 Fluid Seg Neutrophil % 93.2 Fld Band Neutrophil % TNP Fluid Lymphocytes % 2.3 Fluid Monocytes % TNP Fluid Eosinophils % TNP Fluid Basophils % TNP Fluid Other Cells % 4.5 12/17/17 12/18/17 12/18/17 18:35 05:40 05:40 WBC 7.8 RBC 3.85 L Hgb 11.2 L Hct 34.8 L MCV 90.4 MCH 29.1 MCHC 32.2 RDW 13.9 Plt Count 224 MPV 8.7 L Immature Gran % 1.3 Seg Neutrophils % 74.3 Lymphocytes % 13.2 Monocytes % 7.2 Eosinophils % 3.6 Basophils % 0.4 Neutrophils # 5.8 Lymphocytes # 1.0 Monocytes # 0.6 Eosinophils # 0.3 Basophils # 0.0 ESR Sodium 139 Potassium 3.9 Chloride 103 Carbon Dioxide 30 H BUN 6 Creatinine 0.56 L Est GFR ( Amer) > 60 Est GFR (Non-Af Amer) > 60 BUN/Creatinine Ratio 11 Glucose 101 Calculated Osmolality 286 Calcium 8.8 Phosphorus 3.5 Magnesium 1.9 C-Reactive Protein 176 H Urine Color Urine Clarity Urine pH Ur Specific Leigh Urine Protein Urine Glucose (UA) Urine Ketones Urine Blood Urine Nitrite Urine Bilirubin Urine Urobilinogen Ur Leukocyte Esterase Urine Microscopic RBC Urine Microscopic WBC Ur Squamous Epith Cells Urine Bacteria Hyaline Casts Ur Culture Indicated? Fluid Source Fluid Volume Fluid Appearance Fluid RBC Fld Tot Nucleated Cell Fluid Seg Neutrophil % Fld Band Neutrophil % Fluid Lymphocytes % Fluid Monocytes % Fluid Eosinophils % Fluid Basophils % Fluid Other Cells % Cultures: Cultures 12/16/17 14:50 Gram Stain - Final Right Middle Lobe Lung 12/14/17 16:30 Blood Culture - Preliminary Peripheral Venipuncture No growth. 12/14/17 16:30 Blood Culture - Preliminary Peripheral Venipuncture No growth. 12/12/17 12:45 Urine Culture - Final Urine,Clean Catch Enterococcus faecalis 12/13/17 14:07 Blood Culture - Preliminary Peripheral Venipuncture No growth. 12/13/17 14:07 Blood Culture - Preliminary Peripheral Venipuncture No growth. 12/14/17 23:15 Sputum Culture - Final Sputum 12/12/17 12:45 Legionella Antigen - Final Urine,Clean Catch Streptococcus pneumoniae Antigen (M - Final 12/11/17 19:45 Sputum Culture - Final Sputum Serology 12/17/17 12/16/17 12/14/17 Range/Units 18:19 14:50 17:19 Urine Color Dark Yellow (Yellow) Urine Clarity Cloudy A (Clear) Urine pH 6.5 (5.0-8.0) pH Units Ur Specific [place] 1.020 (1.010-1.025) Urine Protein 30 H (Neg-Trace) mg/dL Urine Glucose (UA) Normal (Normal) mg/dL Urine Ketones Negative (Negative) mg/dL Urine Blood Moderate H (Negative) Urine Nitrite Negative (Negative) Urine Bilirubin Negative (Negative) Urine Urobilinogen Normal (Normal) mg/dL Ur Leukocyte Esterase Moderate H (Negative) Urine Microscopic RBC 50-100 H (0-3) per hpf Urine Microscopic WBC 30-50 H (0-3) per hpf Ur Squamous Epith Cells Many H (None-Few) per lpf Urine Bacteria Few (None-Few) per hpf Hyaline Casts Few (None-Few) per lpf Ur Culture Indicated? NO. (NO) Fluid Source right middle lobe BA Fluid Volume 19 mL Fluid Appearance Cloudy A (Clear) Fluid RBC 0.002 (No Ref Range) M/mcL Fld Tot Nucleated Cell 1301 (No Ref Range) TNC/mcL Fluid Seg Neutrophil % 93.2 % Fld Band Neutrophil % TNP Fluid Lymphocytes % 2.3 % Fluid Monocytes % TNP Fluid Eosinophils % TNP Fluid Basophils % TNP Fluid Other Cells % 4.5 % Chlamy pneumoniae PCR Not Detected (Not Detect) Adenovirus (PCR) Not Detected (Not Detect) B. pertussis DNA (PCR) Not Detected (Not Detect) B.parapertussis DNA PCR Not Detected (Not Detect) Coronavirus OC43 (PCR) Not Detected (Not Detect) Coronavirus HKU1 (PCR) Not Detected (Not Detect) Coronavirus 229E (PCR) Not Detected (Not Detect) Coronavirus NL63 (PCR) Not Detected (Not Detect) Human Metapneumovir PCR Not Detected (Not Detect) Influenza A (H1) PCR Not Detected (Not Detect) Influ A (H1N1/09) PCR Not Detected (Not Detect) Influenza A (H3) PCR Not Detected (Not Detect) Influenza A Untype (PCR) Not Detected (Not Detect) Influenza Type B (PCR) Not Detected (Not Detect) M.pneumoniae DNA (PCR) Not Detected (Not Detect) Parainfluenza 1 (PCR) Not Detected (Not Detect) Parainfluenza 2 (PCR) Not Detected (Not Detect) Parainfluenza 3 (PCR) Not Detected (Not Detect) Parainfluenza 4 (PCR) Not Detected (Not Detect) RSV (PCR) Not Detected (Not Detect) Entero/Rhino (PCR) Not Detected (Not Detect) 12/12/17 Range/Units 12:45 Urine Color Dark Yellow (Yellow) Urine Clarity Turbid A (Clear) Urine pH 7.0 (5.0-8.0) pH Units Ur Specific Leigh 1.016 (1.010-1.025) Urine Protein 30 H (Neg-Trace) mg/dL Urine Glucose (UA) Normal (Normal) mg/dL Urine Ketones Negative (Negative) mg/dL Urine Blood Large H (Negative) Urine Nitrite Positive A (Negative) Urine Bilirubin Negative (Negative) Urine Urobilinogen Normal (Normal) mg/dL Ur Leukocyte Esterase Large H (Negative) Urine Microscopic RBC TNTC H (0-3) per hpf Urine Microscopic WBC TNTC H (0-3) per hpf Ur Squamous Epith Cells Moderate H (None-Few) per lpf Urine Bacteria Few (None-Few) per hpf Hyaline Casts None Seen (None-Few) per lpf Ur Culture Indicated? (NO) Fluid Source Fluid Volume mL Fluid Appearance (Clear) Fluid RBC (No Ref Range) M/mcL Fld Tot Nucleated Cell (No Ref Range) TNC/mcL Fluid Seg Neutrophil % % Fld Band Neutrophil % Fluid Lymphocytes % % Fluid Monocytes % Fluid Eosinophils % Fluid Basophils % Fluid Other Cells % % Chlamy pneumoniae PCR (Not Detect) Adenovirus (PCR) (Not Detect) B. pertussis DNA (PCR) (Not Detect) B.parapertussis DNA PCR (Not Detect) Coronavirus OC43 (PCR) (Not Detect) Coronavirus HKU1 (PCR) (Not Detect) Coronavirus 229E (PCR) (Not Detect) Coronavirus NL63 (PCR) (Not Detect) Human Metapneumovir PCR (Not Detect) Influenza A (H1) PCR (Not Detect) Influ A (H1N1/09) PCR (Not Detect) Influenza A (H3) PCR (Not Detect) Influenza A Untype (PCR) (Not Detect) Influenza Type B (PCR) (Not Detect) M.pneumoniae DNA (PCR) (Not Detect) Parainfluenza 1 (PCR) (Not Detect) Parainfluenza 2 (PCR) (Not Detect) Parainfluenza 3 (PCR) (Not Detect) Parainfluenza 4 (PCR) (Not Detect) RSV (PCR) (Not Detect) Entero/Rhino (PCR) (Not Detect) - Impressions Impressions Abdomen/Pelvis CT 12/17/17 16:14 IMPRESSION: Mild right-sided hydronephrosis secondary to a stone in the UPJ. Developing pyonephrosis not excluded. Bibasilar pulmonary infiltrates with partially loculated right pleural effusion and partial atelectasis of both lower lobes. Bilateral hip effusions. D/ / Julio César Carson MD / Julio César Carson MD Interpreting Provider: Julio César Carson MD Abdomen/Pelvis CT 12/17/17 21:00 IMPRESSION: No significant interval change in appearance of the abdomen and pelvis from the previous exam obtained earlier in the day. Better visualization of the lung base on the current study with identification of filling defects within the lower lobe bronchi which may reflect aspirates. D/ / Julio César Carson MD / Julio César Carson MD Interpreting Provider: Julio César Carson MD Exam - Constitutional Vitals: Temp Pulse Resp BP Pulse Ox 100.0 F H 92 16 111/70 92 12/18/17 08:03 12/18/17 08:03 12/18/17 08:03 12/18/17 08:03 12/18/17 08:03 Exam: General: Patient alert, interactive, no acute distress, on oxygen mask HEENT: Normocephalic, atraumatic, oral mucosa dry,, neck supple trachea midline no palpable lymphadenopathy Chest: Symmetric bilateral correlating with respiratory effort, effort nonlabored. Cardiac: Irregularly irregular heart rate and rhythm, radial pulses 2+ bilateral Respiratory: Diminished breath sounds in bilateral lung bases with inspiratory and expiratory rails and wheezing in bilateral lung apices Abdomen: Soft, morbidly obese, nontender, + bowel sounds, midline hernia, no palpable masses appreciated on examination Extremities: Symmetric bilateral, bilateral lower studies demonstrate venous stasis with mild edema. No noticed ulcers or wounds. Neurologic: Face symmetric, chronic poor musculature and deformity secondary to quadriplegia. Consult Discharge Plan - Plan Referrals: Joseph Pelayo MD [Primary Care Provider] - (please call upon discharge, per ocp office...) - Attending Attestation I examined this patient and my medical decision-making was reviewed with the Resident Physician. I agree with the documented findings, disposition and treatment plan as described except to the extent set forth below. CT abdomen and pelvis noted. Discussed with the hospitalist team and they spoke with urology who I think either up or stand and for the patient tomorrow. I answered all the patient's family's questions and addressed all their concerns.
[2017-12-18] MEDS: Pregabalin 75 MG CAPSULE PO SCH (09:18)
--- NOTE | 2017-12-18 14:36 | Internal Med Progress Note ---
Date of Encounter: 12/18/17 Time of Encounter: 13:50 - Time Spent With Patient Total time spent is greater than 50% in coordination of care (as documented) at patient's floor/unit and/or counseling patient: - Subjective Interval history: Pt seen and examined at bedside. reports of pain not being appropriately controlled, pain meds adjusted. CT abd/pelvis showed mild right sided hydronephrosis secondary to a stone in the UPJ. Developing pyonephrosis can not be excluded Urology consulted given CT findings. Pt scheduled for a stent placement in am. NPO after midnight - Assessment and plan (1) Acute hypoxemic respiratory failure Current Visit: Yes Status: Acute Assessment and plan: continue O2 supplementation Continue nebulizers. Treat pneumonia as below. Patient has a history of mucus plugs and is at risk again. continue pulm toileting (2) Sepsis Current Visit: Yes Status: Acute Assessment and plan: Patient met sepsis criteria with fever, tachycardia, leukocytosis and pneumonia as a source. We will treat as below. Normal lactic acid. Qualifiers: Sepsis type: sepsis due to unspecified organism Qualified Code(s): A41.9 - Sepsis, unspecified organism (3) Pneumonia Current Visit: Yes Status: Acute Assessment and plan: ID evaluation appreciated continue Vancomycin and Zosyn vanco dose adjusted as per vanc trough continue levaquin PUlm evaluation appreciated s/p bronchoscopy (12/16/17), awaiting microbiological and cytological interpretation; noted to have extensive secretions throughout the right tracheobronchial tree sputum culture reported Staph aureus speech therapy evaluation appreciated, diet adjusted as per their recommendations maintain aspiration precautions Given concern for pyonephrosis, urology consulted. 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 resumed on home meds (5) DVT prophylaxis Current Visit: No Status: Acute Assessment and plan: Heparin subcutaneous (6) Electrolyte abnormality Current Visit: No Status: Acute resolved continue to monitor electrolytes and replace as needed (7) UTI Current Visit: No Status: Acute Urine culture positive for enterococcus faecalis, continue current abx (8) Ureteral Calculi Current Visit: No Status: Acute urology evaluation requested NPO after midnight for stent placement in am - Constitutional Vitals: Temp Pulse Resp BP Pulse Ox 102.4 F H 86 20 110/70 90 12/18/17 14:24 12/18/17 11:57 12/18/17 12:07 12/18/17 11:57 12/18/17 12:07 General appearance: Present: A&O X 3 (quadriplegic with contracted upper extremities ), no acute distress, obese - Head Head exam: Present: atraumatic, normocephalic - Eye Eye exam: Present: conjuntiva pink, sclera anicteric - Respiratory Respiratory exam: Absent: respiratory distress, wheezes (coarse breath sounds diffusely ) - Cardiovascular Cardiovascular exam: Present: RRR, +S1, +S2. Absent: diastolic murmur, gallop, rubs, systolic murmur - GI/Abdominal GI/Abdominal exam: Present: normal bowel sounds, soft, no peritoneal signs. Absent: distended, tenderness - Extremities Exam Extremities exam: Present: warm, radial pulses palpable and symmetrical (s/p b/ l BKA ). Absent: calf tenderness - Neurological Exam Neurological exam: Present: oriented X3 Internal Medicine: Result - Labs CBC & Chem 7: 12/18/17 05:40 12/18/17 05:40 Labs: Short CBC 12/18/17 Range/Units 05:40 WBC 7.8 (4.3-11.1) K/mcL Hgb 11.2 L (12.9-16.9) g/dL Hct 34.8 L (37.5-50.1) % Plt Count 224 (140-400) K/mcL Neutrophils # 5.8 (1.6-8.9) K/mcL BMP 12/18/17 05:40 Sodium 139 Potassium 3.9 Chloride 103 Carbon Dioxide 30 H BUN 6 Creatinine 0.56 L Glucose 101 Calcium 8.8 Urine 12/17/17 Range/Units 18:19 Urine Color Dark Yellow (Yellow) Urine Clarity Cloudy A (Clear) Urine pH 6.5 (5.0-8.0) pH Units Ur Specific [place] 1.020 (1.010-1.025) Urine Protein 30 H (Neg-Trace) mg/dL Urine Glucose (UA) Normal (Normal) mg/dL - ABG Interpretation ABG results: PT/INR, D-dimer PT 13.6 Seconds (9.4-12.1) H 12/11/17 13:59 D-Dimer 339 ng/mLFEU (0-500) 12/11/17 13:59 - Impressions Impressions Abdomen/Pelvis CT 12/17/17 16:14 IMPRESSION: Mild right-sided hydronephrosis secondary to a stone in the UPJ. Developing pyonephrosis not excluded. Bibasilar pulmonary infiltrates with partially loculated right pleural effusion and partial atelectasis of both lower lobes. Bilateral hip effusions. D/ / Julio César Carson MD / Julio César Carson MD Interpreting Provider: Julio César Carson MD Abdomen/Pelvis CT 12/17/17 21:00 IMPRESSION: No significant interval change in appearance of the abdomen and pelvis from the previous exam obtained earlier in the day. Better visualization of the lung base on the current study with identification of filling defects within the lower lobe bronchi which may reflect aspirates. D/ / Julio César Carson MD / Julio César Carson MD Interpreting Provider: Julio César Carson MD Consult Discharge Plan - Plan Referrals: Joseph Pelayo MD [Primary Care Provider] - (please call upon discharge, per ocp office...)
[2017-12-18] MEDS: Ondansetron 4 MG/2 ML VIAL IVP PRN (14:51)
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
[2017-12-18] MEDS ORDERED: Isovue-300 50 ML VIAL IVP ONE (21:42)
--- NOTE | 2017-12-18 23:02 | Anesthesia Evaluation PreOp ---
Date of Encounter: 12/18/17 Time of Encounter: 22:59 - Past History Planned Operation: cysto, R ureteral stent Cardiac History: Denies any Significant Hx Pulmonary History: Former smoker, Other (pneumonia with respiratory distress currently, hx PE) TAPE MAKER History: Other (quadriplegia (cervical level); neurogenic bladder) Other Medical History: Renal (stones), Other (sepsis) Anesthesia History: No Prior Anesthetic Complications Alcohol Use: rarely Drug use: none Medications and Allergies Baclofen 20 mg PO BID 04/17/15 [History] Diazepam [Valium] 10 mg PO BID PRN 04/17/15 [History] Oxycodone HCl 15 mg PO Q6HR PRN 04/17/15 [History] Oxycodone HCl [Oxycontin] 10 mg PO BID 04/17/15 [History] Pregabalin [Lyrica] 300 mg PO DAILY 04/17/15 [History] Sertraline [Zoloft] 150 mg PO DAILY 04/17/15 [History] Trazodone HCl 150 mg PO HS PRN 04/17/15 [History] 3 Allergy/AdvReac Type Severity Reaction Status Date / Time morphine Allergy Hallucinati Verified 12/11/17 14:17 ng - Meds/Allergy Pre-op Review Medications Reviewed: Yes Allergies Reviewed: Yes Beta Blockers on Current Med List: No Anesthesia Results - Labs 12/18/17 05:40 12/18/17 05:40 - Imaging EKG: report reviewed, image reviewed (SINUS TACHYCARDIA LEFT ATRIAL ENLARGEMENT BORDERLINE LEFT AXIS DEVIATION INCOMPLETE RIGHT BUNDLE BRANCH BLOCK BASELINE ARTIFACT) Additional studies: 2014 TTE: Impressions: Normal left ventricular systolic function, LVEF 60%. Normal left ventricular diastolic function. Normal right ventricular structure and function. Unable to estimate RVSP due to lack of TR jet. No significant valvular dysfunction. No evidence of endocarditis. Anesthesia Exam Last Vital Signs Temp 101.1 F H 12/18/17 20:37 Pulse 105 12/18/17 20:37 Resp 18 12/18/17 20:37 BP 101/64 12/18/17 20:37 Pulse Ox 85 12/18/17 20:37 Weight: 75 kg NPO (# of Hours): > 8 hrs - HEENT Pupil (Motor): Pupils equal, EOMI Mallampati: III Teeth: Poor dentition Oral Opening: Greater than 3 - TAPE MAKER LOC: Oriented - Cardiac Rhythm: Regular - Pulmonary Breath Sounds: bilateral Rhonchi Respiratory Effort: Labored Anesthesia Assess/Plan ASA Score: 4, E Modified Alice Scale for Level of Consciousness: Cooperative, oriented, and tranquil Anesthetic Plan: General Monitoring Plan: Standard Monitors Recovery Plan: PACU
[2017-12-18] MEDS ORDERED: Nitroglycerin 25 MG/250 ML INFUS..BTL IVC ONE (23:04)
[2017-12-18] MEDS ORDERED: Lidocaine -MPF 2% 2 ML VIAL ONE (23:05)
[2017-12-18] MEDS ORDERED: *HR* Etomidate 40 MG/20 ML VIAL IVP ONE (23:05)
[2017-12-18] MEDS ORDERED: Ondansetron 4 MG/2 ML VIAL ONE (23:06)
[2017-12-18] MEDS ORDERED: Dexamethasone 4 MG/ML VIAL ONE ×2 (23:06→23:07)
[2017-12-18] MEDS ORDERED: *HR* Propofol 200 MG/20 ML VIAL IVP ONE (23:08)
[2017-12-18] MEDS ORDERED: *HR* PHENYLEPHRINE 1,000 MCG/10 ML SYRINGE IVP ONE (23:13)
[2017-12-18] MEDS ORDERED: EPHEDrine 50 MG/ML VIAL ONE (23:14)
[2017-12-18] MEDS ORDERED: *HR* Midazolam HCl 2 MG/2 ML VIAL ONE (23:19)
--- NOTE | 2017-12-19 00:19 | Operative Note ---
Date of procedure: 12/19/17 Pre-op diagnosis: Right ureteral stone Post-op diagnosis: other (Right ureteral stone with bladder stone) Procedure: Cystoscopy, right retrograde pyelogram, right ureteral stent placement, removal of bladder stone. Implants: 6-Trinidadian by 26 cm double-J stent. 20-Trinidadian suprapubic tube. Complications: none Anesthesia: MIRTHA Surgeon: Suleiman Kenny Was there an family medicine physician assistant present: No Estimated blood loss (cc): 0 Specimen: bladder stone Condition: stable Disposition: PACU Procedure in Detail: Indications: Mario is a 37-year-old man has a history of quadriplegia who developed urinary tract infection with sepsis. A CT scan showed a right proximal ureteral stone. He and his family elected to undergo a cystoscopy and right ureteral stent placement. He was aware of the risks of the surgery including but not limited to bleeding, infection, injury to other structures, need for further procedures , stent irritation, ureteral perforation, need for nephrostomy tube, need for open repair, risks unforeseen, and the risk of anesthesia. He is willing to proceed. Procedure: After informed consent was obtained the patient was brought back to the operating room and placed in the supine position. A timeout was performed. Gen. anesthesia was administered and an endotracheal tube was placed. His abdomen was prepped and draped in sterile fashion. The suprapubic tube had previously been removed. I perform cystoscopy down his suprapubic tube tract. There was a bladder stone. The ureteral orifices were in the normal position. There is no evidence of bladder tumor. Using an angle tipped zip wire I was able to pass this up the right ureteral orifice into the kidney under fluoroscopic guidance. An open-ended catheter was in place. A retrograde pyelogram was performed which showed good position in the kidney. The wire was replaced. I then passed a 6-Trinidadian by 26 cm double-J stent with a good curl seen in the kidney. The dangle strings were removed. A good curl was noted in the bladder. The scope was replaced and I utilized a basket to extract the bladder stone. A 20-Trinidadian [address] way catheter was then placed down the suprapubic tube tract. 10 mL was instilled into the balloon. The patient was brought to recovery in good condition.
[2017-12-19] MEDS: Baclofen 10 MG TABLET PO SCH ×4 (00:52→20:42)
--- NOTE | 2017-12-19 01:07 | Anesthesia Evaluation Post Op ---
Date of Encounter: 12/19/17 Time of Encounter: 01:06 - Vital Signs Vital Signs: Last Vital Signs Temp 101.4 F H 12/19/17 00:58 Pulse 93 12/19/17 00:58 Resp 28 12/19/17 00:58 BP 114/70 12/19/17 00:58 Pulse Ox 92 12/19/17 00:58 - Lungs Lungs: Rhonchi (baseline) - Airway Airway: Non-obstructed - Cardiovascular Regular Rate - Mental Status Mental Status: Alert & Oriented, Answers Appropriately - Pain Pain Scale: 3 - Nausea Vomiting Nausea Vomiting: Not Present - Hydration Hydration: NPO - Discharge PostOp Status: Transfer Patient to floor
[2017-12-19] MEDS: *HR* Heparin 5,000 UNIT/ML VIAL SQ SCH ×4 (01:50→22:34)
[2017-12-19] MEDS: traZODone 50 MG TABLET PO PRN (02:20)
[2017-12-19] MEDS: Acetaminophen 325 MG TABLET PO PRN (02:20)
[2017-12-19] MEDS ORDERED: Naloxone 0.4 MG/ML INJ IVP PRN (02:22)
[2017-12-19] MEDS ORDERED: Acetaminophen 325 MG TABLET PO PRN (02:22)
[2017-12-19] MEDS ORDERED: Ondansetron 4 MG/2 ML VIAL IVP PRN (02:22)
[2017-12-19] MEDS: Ipratropium/Albuterol Neb 3 ML IH SCH ×6 (04:53→23:56)
[2017-12-19 05:08] LABS: Basophils % 0.2 %; Eosinophils % 0.1 %; Hematocrit 38.1 % (37.5-50.1); Hemoglobin 12.1 g/dL (12.9-16.9); Immature Granulocytes % 1.4 % (0-4); Lymphocytes # 0.4 K/mcL (0.6-4.6); Lymphocytes % 4.2 %; Mean Corpuscular HGB Conc 31.8 g/dL (31.6-35.5); Mean Corpuscular Hemoglobin 29.3 pg (28.0-33.3); Mean Corpuscular Volume 92.3 fL (83.0-100.0); Mean Platelet Volume 8.8 fL (9.4-12.4); Monocytes # 0.2 K/mcL (0.0-1.3); Monocytes % 1.7 %; Neutrophils # 9.8 K/mcL (1.6-8.9); Platelet Count 305 K/mcL (140-400); Red Blood Count 4.13 M/mcL (4.19-5.50); Red Cell Distribution Width 14.1 % (11.5-14.5); Segmented Neutrophils % 92.4 %
[2017-12-19 05:17] LABS: BUN/Creatinine Ratio 13 (6-26); Blood Urea Nitrogen 7 mg/dL (6-20); Calcium 8.9 mg/dL (8.6-10.3); Carbon Dioxide 29 mEq/L (23-29); Chloride 103 mEq/L (98-107); Glucose 132 mg/dL (70-105); Magnesium 2.1 mg/dL (1.6-2.6); Osmolality,Calculated 290 (280-300); Phosphorous 3.5 mg/dL (2.7-4.5); Potassium 4.3 mEq/L (3.5-5.1); Sodium 140 mEq/L (136-145); eGFR For African Americans > 60 (> 60); eGFR For Non-African Americans > 60 (> 60)
[2017-12-19] MEDS: *HR* OxyCODONE ER (12 HR) 10 MG TABLET PO SCH ×2 (06:28→18:21)
[2017-12-19] MEDS ORDERED: *HR* HYDROmorphone 2 MG/ML SYRINGE IVP ONE (09:06)
[2017-12-19] MEDS: Pregabalin 75 MG CAPSULE PO SCH (09:08)
[2017-12-19] MEDS: Sennosides/Docusate Sodium TABLET PO SCH ×2 (09:09→20:43)
[2017-12-19] MEDS: Piperacillin/Tazobactam 3.375 GM in 0.9 % Sodium Chloride Mini Bag 100 ML IVPB SCH ×3 (09:25→22:35)
--- NOTE | 2017-12-19 09:56 | Urology Progress Note ---
Date of Encounter: 12/19/17 Time of Encounter: 09:55 - Assessment and Plan (1) Nephrolithiasis Current Visit: Yes Status: Acute Assessment and plan: Postop day #1 status post right ureteral stent placement. He is doing well. We will follow for now. He will need a right ureteroscopic stone extraction once his infection has cleared. (2) Sepsis Current Visit: Yes Status: Acute Qualifiers: Sepsis type: sepsis due to unspecified organism Qualified Code(s): A41.9 - Sepsis, unspecified organism (3) UTI (urinary tract infection) Current Visit: No Status: Acute Qualifiers: Urinary tract infection type: catheter-associated UTI Indwelling urinary catheter type: cystostomy catheter Encounter type: subsequent encounter Qualified Code(s): T83.510D - Infection and inflammatory reaction due to cystostomy catheter, subsequent encounter; N39.0 - Urinary tract infection, site not specified; N39.0 - Urinary tract infection, site not specified Progress Note Narrative: Doing well after right ureteral stent placement yesterday. Fever curve seems to be improving. Urine is draining well out the suprapubic tube. Objective Initial Vital Signs Temp Pulse Resp BP Pulse Ox 103.1 F H 100 22 134/83 89 12/11/17 13:56 12/11/17 13:56 12/11/17 13:56 12/11/17 13:56 12/11/17 13:56 - General physical appearance Present: no distress - Abdomen Present: soft - Genitourinary Present: other (SP tube with clear urine) - Labs 12/19/17 04:42 12/19/17 04:42 Diabetes panel 12/19/17 Range/Units 04:42 Sodium 140 (136-145) mEq/L Potassium 4.3 (3.5-5.1) mEq/L Chloride 103 (98-107) mEq/L Carbon Dioxide 29 (23-29) mEq/L BUN 7 (6-20) mg/dL Creatinine 0.56 L (0.70-1.30) mg/dL Glucose 132 H (70-105) mg/dL Calcium 8.9 (8.6-10.3) mg/dL Calcium panel 12/19/17 Range/Units 04:42 Calcium 8.9 (8.6-10.3) mg/dL Phosphorus 3.5 (2.7-4.5) mg/dL Pituitary panel 12/19/17 Range/Units 04:42 Sodium 140 (136-145) mEq/L Potassium 4.3 (3.5-5.1) mEq/L Chloride 103 (98-107) mEq/L Carbon Dioxide 29 (23-29) mEq/L BUN 7 (6-20) mg/dL Creatinine 0.56 L (0.70-1.30) mg/dL Glucose 132 H (70-105) mg/dL Calcium 8.9 (8.6-10.3) mg/dL Adrenal panel 12/19/17 Range/Units 04:42 Sodium 140 (136-145) mEq/L Potassium 4.3 (3.5-5.1) mEq/L Chloride 103 (98-107) mEq/L Carbon Dioxide 29 (23-29) mEq/L BUN 7 (6-20) mg/dL Creatinine 0.56 L (0.70-1.30) mg/dL Glucose 132 H (70-105) mg/dL Calcium 8.9 (8.6-10.3) mg/dL Consult Discharge Plan - Plan Referrals: Joseph Pelayo MD [Primary Care Provider] - (please call upon discharge, per ocp office...)
--- NOTE | 2017-12-19 14:38 | Internal Med Progress Note ---
Date of Encounter: 12/19/17 Time of Encounter: 10:50 - Time Spent With Patient Total time spent is greater than 50% in coordination of care (as documented) at patient's floor/unit and/or counseling patient: - Subjective Interval history: Pt seen and examined at bedside. POD #1 s/p post right ureteral stent placement Pt reported of diffuse severe pain that was not controlled with PO meds so one time dose of Dilaudid 0.5mg IV was given, which reported improvement of her symptoms. Noted to have increase in O2 requirements, currently on bipap support - Assessment and plan (1) Acute hypoxemic respiratory failure Current Visit: Yes Status: Acute Assessment and plan: continue O2 supplementation Continue nebulizers. Treat pneumonia as below. Patient has a history of mucus plugs and is at risk again. continue pulm toileting Bipap support as needed (2) Sepsis Current Visit: Yes Status: Acute Assessment and plan: Patient met sepsis criteria with fever, tachycardia, leukocytosis and pneumonia as a source. We will treat as below. Normal lactic acid. Qualifiers: Sepsis type: sepsis due to unspecified organism Qualified Code(s): A41.9 - Sepsis, unspecified organism (3) Pneumonia Current Visit: Yes Status: Acute Assessment and plan: ID evaluation appreciated continue Vancomycin and Zosyn vanco dose adjusted as per vanc trough continue levaquin PUlm evaluation appreciated s/p bronchoscopy (12/16/17), awaiting microbiological and cytological interpretation; noted to have extensive secretions throughout the right tracheobronchial tree sputum culture reported Staph aureus speech therapy evaluation appreciated, diet adjusted as per their recommendations maintain aspiration precautions Qualifiers: Pneumonia type: due to other aerobic Gram-negative bacteria Laterality: right Lung location: unspecified part of lung Qualified Code(s): J15.6 - Pneumonia due to other Gram-negative bacteria (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 resumed on home meds (5) DVT prophylaxis Current Visit: No Status: Acute Assessment and plan: Heparin subcutaneous (6) Electrolyte abnormality Current Visit: No Status: Acute resolved continue to monitor electrolytes and replace as needed (7) UTI Current Visit: No Status: Acute Urine culture positive for enterococcus faecalis, continue current abx (8) Ureteral Calculi Current Visit: No Status: Acute urology evaluation appreciated POD #1 s/p post right ureteral stent placement (DOS: 4/6/18) - Constitutional Vitals: Temp Pulse Resp BP Pulse Ox 98.5 F 85 17 93/55 92 12/19/17 11:08 12/19/17 11:08 12/19/17 11:39 12/19/17 11:08 12/19/17 11:39 General appearance: Present: A&O X 3 (quadriplegic with contracted upper extremities ), no acute distress, obese - Head Head exam: Present: atraumatic, normocephalic - Eye Eye exam: Present: conjuntiva pink, sclera anicteric - Respiratory Respiratory exam: Absent: respiratory distress, wheezes (coarse breath sounds, diffuse rhonchi) - Cardiovascular Cardiovascular exam: Present: RRR, +S1, +S2 - GI/Abdominal GI/Abdominal exam: Present: normal bowel sounds, soft. Absent: distended, tenderness - Extremities Exam Extremities exam: Present: warm, radial pulses palpable and symmetrical (s/p b/ l LE bKA ) - Neurological Exam Neurological exam: Present: oriented X3 Internal Medicine: Result - Labs CBC & Chem 7: 12/19/17 04:42 12/19/17 04:42 Labs: Short CBC 12/19/17 Range/Units 04:42 WBC 10.6 (4.3-11.1) K/mcL Hgb 12.1 L (12.9-16.9) g/dL Hct 38.1 (37.5-50.1) % Plt Count 305 (140-400) K/mcL Neutrophils # 9.8 H (1.6-8.9) K/mcL BMP 12/19/17 04:42 Sodium 140 Potassium 4.3 Chloride 103 Carbon Dioxide 29 BUN 7 Creatinine 0.56 L Glucose 132 H Calcium 8.9 - ABG Interpretation ABG results: PT/INR, D-dimer PT 13.6 Seconds (9.4-12.1) H 12/11/17 13:59 D-Dimer 339 ng/mLFEU (0-500) 12/11/17 13:59 - Impressions Impressions Retrograde Pyelogram 12/18/17 23:29 IMPRESSION: Intraprocedural fluoroscopic spot images as above. See separate procedure report for more information. D/ / Jemma Hogan Cha, MD / Jemma Hogan Cha, MD Interpreting Provider: Jemma Hogan Cha, MD Consult Discharge Plan - Plan Referrals: Joseph Pelayo MD [Primary Care Provider] - (please call upon discharge, per ocp office...)
[2017-12-19] MEDS: *HR* OxyCODONE Immed Rel 15 MG TABLET PO PRN (20:43)
[2017-12-20] MEDS: Ipratropium/Albuterol Neb 3 ML IH SCH ×5 (04:13→20:30)
[2017-12-20] MEDS: *HR* OxyCODONE ER (12 HR) 10 MG TABLET PO SCH ×2 (06:09→17:36)
[2017-12-20] MEDS: Piperacillin/Tazobactam 3.375 GM in 0.9 % Sodium Chloride Mini Bag 100 ML IVPB SCH ×3 (06:10→22:28)
[2017-12-20] MEDS: *HR* Heparin 5,000 UNIT/ML VIAL SQ SCH ×3 (06:31→22:14)
[2017-12-20 06:33] LABS: Basophils % 0.4 %; Eosinophils # 0.3 K/mcL (0.0-0.6); Eosinophils % 2.6 %; Hematocrit 34.2 % (37.5-50.1); Hemoglobin 10.7 g/dL (12.9-16.9); Immature Granulocytes % 1.1 % (0-4); Lymphocytes # 1.3 K/mcL (0.6-4.6); Lymphocytes % 11.6 %; Mean Corpuscular HGB Conc 31.3 g/dL (31.6-35.5); Mean Corpuscular Hemoglobin 28.8 pg (28.0-33.3); Mean Corpuscular Volume 91.9 fL (83.0-100.0); Mean Platelet Volume 8.6 fL (9.4-12.4); Monocytes # 0.5 K/mcL (0.0-1.3); Monocytes % 4.8 %; Neutrophils # 8.7 K/mcL (1.6-8.9); Platelet Count 303 K/mcL (140-400); Red Blood Count 3.72 M/mcL (4.19-5.50); Red Cell Distribution Width 14.1 % (11.5-14.5); Segmented Neutrophils % 79.5 %
[2017-12-20 06:49] LABS: BUN/Creatinine Ratio 23 (6-26); Blood Urea Nitrogen 12 mg/dL (6-20); Calcium 8.6 mg/dL (8.6-10.3); Carbon Dioxide 31 mEq/L (23-29); Chloride 104 mEq/L (98-107); Glucose 97 mg/dL (70-105); Magnesium 1.9 mg/dL (1.6-2.6); Osmolality,Calculated 288 (280-300); Sodium 139 mEq/L (136-145); eGFR For African Americans > 60 (> 60); eGFR For Non-African Americans > 60 (> 60)
[2017-12-20] MEDS: Pregabalin 75 MG CAPSULE PO SCH (08:19)
[2017-12-20] MEDS: Sennosides/Docusate Sodium TABLET PO SCH ×2 (08:19→22:27)
[2017-12-20] MEDS: Baclofen 10 MG TABLET PO SCH ×2 (08:21→22:27)
[2017-12-20] MEDS: *HR* OxyCODONE Immed Rel 15 MG TABLET PO PRN ×2 (08:24→14:46)
--- NOTE | 2017-12-20 09:57 | Urology Progress Note ---
Date of Encounter: 12/20/17 Time of Encounter: 09:55 - Assessment and Plan (1) Nephrolithiasis Current Visit: Yes Status: Acute Assessment and plan: Postop day #1 status post right ureteral stent placement. He is doing well today. We will monitor for now. He can follow up for outpatient ureteroscopy once he is cleared from a medical standpoint. (2) Sepsis Current Visit: Yes Status: Acute Qualifiers: Sepsis type: sepsis due to unspecified organism Qualified Code(s): A41.9 - Sepsis, unspecified organism (3) UTI (urinary tract infection) Current Visit: No Status: Acute Qualifiers: Urinary tract infection type: catheter-associated UTI Indwelling urinary catheter type: cystostomy catheter Encounter type: subsequent encounter Qualified Code(s): T83.510D - Infection and inflammatory reaction due to cystostomy catheter, subsequent encounter; N39.0 - Urinary tract infection, site not specified; N39.0 - Urinary tract infection, site not specified Progress Note Narrative: Doing better today. No fevers overnight. Urine is clear at the nephrostomy tube. Objective Initial Vital Signs Temp Pulse Resp BP Pulse Ox 103.1 F H 100 22 134/83 89 12/11/17 13:56 12/11/17 13:56 12/11/17 13:56 12/11/17 13:56 12/11/17 13:56 - General physical appearance Present: no distress - Abdomen Present: soft - Genitourinary Present: other (SP tube in place with clear urine.) - Labs 12/20/17 06:03 12/20/17 06:03 Diabetes panel 12/20/17 Range/Units 06:03 Sodium 139 (136-145) mEq/L Potassium 4.0 (3.5-5.1) mEq/L Chloride 104 (98-107) mEq/L Carbon Dioxide 31 H (23-29) mEq/L BUN 12 (6-20) mg/dL Creatinine 0.52 L (0.70-1.30) mg/dL Glucose 97 (70-105) mg/dL Calcium 8.6 (8.6-10.3) mg/dL Calcium panel 12/20/17 Range/Units 06:03 Calcium 8.6 (8.6-10.3) mg/dL Phosphorus 3.0 (2.7-4.5) mg/dL Pituitary panel 12/20/17 Range/Units 06:03 Sodium 139 (136-145) mEq/L Potassium 4.0 (3.5-5.1) mEq/L Chloride 104 (98-107) mEq/L Carbon Dioxide 31 H (23-29) mEq/L BUN 12 (6-20) mg/dL Creatinine 0.52 L (0.70-1.30) mg/dL Glucose 97 (70-105) mg/dL Calcium 8.6 (8.6-10.3) mg/dL Adrenal panel 12/20/17 Range/Units 06:03 Sodium 139 (136-145) mEq/L Potassium 4.0 (3.5-5.1) mEq/L Chloride 104 (98-107) mEq/L Carbon Dioxide 31 H (23-29) mEq/L BUN 12 (6-20) mg/dL Creatinine 0.52 L (0.70-1.30) mg/dL Glucose 97 (70-105) mg/dL Calcium 8.6 (8.6-10.3) mg/dL Consult Discharge Plan - Plan Referrals: Joseph Pelayo MD [Primary Care Provider] - (please call upon discharge, per ocp office...)
[2017-12-20 15:27] LABS: Influenza A PCR Body Fluid NOT DETECTED; Influenza B PCR Body Fluid NOT DETECTED
--- NOTE | 2017-12-20 15:38 | Internal Med Progress Note ---
Date of Encounter: 12/20/17 Time of Encounter: 10:40 - Time Spent With Patient Total time spent is greater than 50% in coordination of care (as documented) at patient's floor/unit and/or counseling patient: - Subjective Interval history: Pt seen and examined at bedside. POD #2 s/p post right ureteral stent placement Noted to have improvement in his fevers no overnight events reported - Assessment and plan (1) Acute hypoxemic respiratory failure Current Visit: Yes Status: Acute Assessment and plan: continue O2 supplementation Continue nebulizers. Treat pneumonia as below. Patient has a history of mucus plugs and is at risk again. continue pulm toileting Bipap support as needed (2) Sepsis Current Visit: Yes Status: Acute Assessment and plan: Patient met sepsis criteria with fever, tachycardia, leukocytosis and pneumonia as a source. We will treat as below. Normal lactic acid. Qualifiers: Sepsis type: sepsis due to unspecified organism Qualified Code(s): A41.9 - Sepsis, unspecified organism (3) Pneumonia Current Visit: Yes Status: Acute Assessment and plan: ID evaluation appreciated continue Vancomycin and Zosyn vanco dose adjusted as per vanc trough continue levaquin PUlm evaluation appreciated s/p bronchoscopy (12/16/17), awaiting microbiological and cytological interpretation; noted to have extensive secretions throughout the right tracheobronchial tree sputum culture reported Staph aureus speech therapy evaluation appreciated, diet adjusted as per their recommendations maintain aspiration precautions Qualifiers: Pneumonia type: due to other aerobic Gram-negative bacteria Laterality: right Lung location: unspecified part of lung Qualified Code(s): J15.6 - Pneumonia due to other Gram-negative bacteria (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 resumed on home meds (5) DVT prophylaxis Current Visit: No Status: Acute Assessment and plan: Heparin subcutaneous (6) Electrolyte abnormality Current Visit: No Status: Acute resolved continue to monitor electrolytes and replace as needed (7) UTI Current Visit: No Status: Acute Urine culture positive for enterococcus faecalis, continue current abx (8) Ureteral Calculi Current Visit: No Status: Acute urology evaluation appreciated POD #2 s/p post right ureteral stent placement (DOS: 12/18/17) - Constitutional Vitals: Temp Pulse Resp BP Pulse Ox 99.6 F 86 20 92/56 92 12/20/17 11:09 12/20/17 11:09 12/20/17 11:25 12/20/17 11:09 12/20/17 11:25 General appearance: Present: A&O X 3 (quadriplegic with contracted upper extremities ), no acute distress, obese - Head Head exam: Present: atraumatic, normocephalic - Eye Eye exam: Present: conjuntiva pink, sclera anicteric - Respiratory Respiratory exam: Absent: respiratory distress, wheezes (diffuse rhonchi) - Cardiovascular Cardiovascular exam: Present: RRR, +S1, +S2. Absent: diastolic murmur, gallop, rubs, systolic murmur - GI/Abdominal GI/Abdominal exam: Present: normal bowel sounds, soft, no peritoneal signs. Absent: distended, tenderness - Extremities Exam Extremities exam: Present: warm, radial pulses palpable and symmetrical (s/p b/ l LE BKA). Absent: calf tenderness - Neurological Exam Neurological exam: Present: oriented X3 Internal Medicine: Result - Labs CBC & Chem 7: 12/20/17 06:03 12/20/17 06:03 Labs: Short CBC 12/20/17 Range/Units 06:03 WBC 11.0 (4.3-11.1) K/mcL Hgb 10.7 L (12.9-16.9) g/dL Hct 34.2 L (37.5-50.1) % Plt Count 303 (140-400) K/mcL Neutrophils # 8.7 (1.6-8.9) K/mcL BMP 12/20/17 06:03 Sodium 139 Potassium 4.0 Chloride 104 Carbon Dioxide 31 H BUN 12 Creatinine 0.52 L Glucose 97 Calcium 8.6 - ABG Interpretation ABG results: PT/INR, D-dimer PT 13.6 Seconds (9.4-12.1) H 12/11/17 13:59 D-Dimer 339 ng/mLFEU (0-500) 12/11/17 13:59 Consult Discharge Plan - Plan Referrals: Joseph Pelayo MD [Primary Care Provider] - (please call upon discharge, per ocp office...)
[2017-12-21] MEDS: *HR* OxyCODONE Immed Rel 15 MG TABLET PO PRN ×3 (02:16→22:39)
[2017-12-21] MEDS: Ipratropium/Albuterol Neb 3 ML IH SCH ×7 (04:18→23:28)
[2017-12-21] MEDS: *HR* Heparin 5,000 UNIT/ML VIAL SQ SCH ×3 (05:38→22:15)
[2017-12-21] MEDS: Piperacillin/Tazobactam 3.375 GM in 0.9 % Sodium Chloride Mini Bag 100 ML IVPB SCH ×3 (05:39→22:40)
[2017-12-21 05:50] LABS: Basophils # 0.1 K/mcL (0.0-0.2); Basophils % 0.4 %; Eosinophils # 0.3 K/mcL (0.0-0.6); Eosinophils % 2.7 %; Hematocrit 36.2 % (37.5-50.1); Hemoglobin 11.4 g/dL (12.9-16.9); Immature Granulocytes % 0.8 % (0-4); Lymphocytes % 7.6 %; Mean Corpuscular HGB Conc 31.5 g/dL (31.6-35.5); Mean Corpuscular Hemoglobin 29.2 pg (28.0-33.3); Mean Corpuscular Volume 92.6 fL (83.0-100.0); Mean Platelet Volume 8.5 fL (9.4-12.4); Monocytes # 0.5 K/mcL (0.0-1.3); Monocytes % 4.1 %; Neutrophils # 10.6 K/mcL (1.6-8.9); Platelet Count 366 K/mcL (140-400); Red Blood Count 3.91 M/mcL (4.19-5.50); Red Cell Distribution Width 13.9 % (11.5-14.5); Segmented Neutrophils % 84.4 %
[2017-12-21 06:22] LABS: BUN/Creatinine Ratio 19 (6-26); Blood Urea Nitrogen 8 mg/dL (6-20); Calcium 8.9 mg/dL (8.6-10.3); Chloride 93 mEq/L (98-107); Glucose 105 mg/dL (70-105); Magnesium 1.8 mg/dL (1.6-2.6); Osmolality,Calculated 275 (280-300); Phosphorous 3.6 mg/dL (2.7-4.5); Potassium 4.3 mEq/L (3.5-5.1); Sodium 133 mEq/L (136-145); eGFR For African Americans > 60 (> 60); eGFR For Non-African Americans > 60 (> 60)
[2017-12-21] MEDS: *HR* OxyCODONE ER (12 HR) 10 MG TABLET PO SCH ×2 (07:02→18:47)
[2017-12-21 08:26] LABS: RSV PCR Body Fluid NOT DETECTED; RVP Body Fluid Source NOT PROVIDED
[2017-12-21] MEDS: Sennosides/Docusate Sodium TABLET PO SCH ×2 (09:13→22:40)
[2017-12-21] MEDS: Pregabalin 75 MG CAPSULE PO SCH (09:13)
[2017-12-21] MEDS: Baclofen 10 MG TABLET PO SCH ×2 (09:13→22:00)
[2017-12-21 09:28] LABS: ABG Base Excess 12 mEq/L (-2 to 3); ABG HCO3 39 mEq/L (21-27); ABG Oxygen Saturation 92 % (95-98); ABG PCO2 61 mmHg (35-45); ABG PH 7.42 pH Units (7.32-7.45); ABG PO2 64 mmHg (85-104); ABG TCO2 41 mEq/L (20-26)
--- NOTE | 2017-12-21 09:49 | Pre-Sedation Evaluation ---
Pre-sedation evaluation - Pre-sedation checklist Date of procedure: 12/19/17 Procedure: Bronchoscopy Recent Vitals: Last Vital Signs Temp 98.9 F 12/21/17 06:48 Pulse 82 12/21/17 06:48 Resp 18 12/21/17 07:42 BP 105/67 12/21/17 06:48 Pulse Ox 94 12/21/17 07:42 H&P (including ROS) documented in medical record: Yes Previous reaction to sedatives/anesthetics: No Dietary Status: NPO after Midnight Dentition: No loose teeth or bridges ASA Classification *see protocol: CLASS III-Severe systemic disease Plan of Care: Pt appropriate candidate for procedure/moderate/conscious sedation , Risks/benefits of procedure/sedation discussed w/ patient/family
[2017-12-21] MEDS ORDERED: Albuterol 2.5 MG/3 ML NEBULIZER IH ONE (09:50)
[2017-12-21] MEDS ORDERED: *HR* FentaNYL (PF) 100 MCG/2 ML VIAL IVP ONE (09:50)
[2017-12-21] MEDS ORDERED: *HR* EPINEPHrine 1 MG/10 ML SYRINGE INTRATRACH PRN (09:50)
[2017-12-21] MEDS ORDERED: Tetracaine/Benzocaine/Butamben 200MG/SPRAY (100SPY/BOT) MM ONE (09:50)
[2017-12-21] MEDS ORDERED: *HR* Midazolam HCl 2 MG/2 ML VIAL IVP ONE (09:50)
--- NOTE | 2017-12-21 09:52 | Infectious Disease Progress No ---
Date of Encounter: 12/21/17 Time of Encounter: 09:52 - Assessment and Plan (1) Sepsis Current Visit: Yes Status: Acute Patient met sepsis criteria at the time of admission with fever of 103.1, pulse of 100, respirations of 22, WBC of 15.1. 12/11/17: chest x-ray showed right Lorna her opacities suspicious for pneumonia 12/14/17 chest x-ray showed progressive bilateral multifocal pneumonia. 12/14/17 chest CTA showed no evidence of PE, multifocal pulmonary infiltrates greater on the right and left, complete lower lobe atelectasis bilaterally, bilateral pleural effusions more prominent on the right, secretions within tracheobronchial tree, media asked sternal and right [place] adenopathy. 12/17/17: CT of the abdomen and pelvis showed mild right-sided hydronephrosis secondary to a stone in the UPJ, bibasilar pulmonary infiltrates partially loculated right pleural effusion and partial atelectasis in both lower lobe. 12/21/17 chest x-ray showed multilobar pneumonia with interval development of right upper lobe pneumonia 12/16/17 patient underwent bronchoscopy that showed bilateral pneumonia, mucous plug found in the right middle lobe and right lower lobe, patient underwent bronchoalveolar lavage, exudates were found throughout the tracheobronchial tree and cultures showed no growth Microbiology: respiratory infectious panel negative 12/11/17: blood cultures X2 negative 12/11/17 sputum sample not meet criteria for culture 12/12/17 Legionella and S. Pneumoniae antigens negative 12/12/17 urine culture grew enterococcus faecalis 12/13/17, repeat blood cultures X2 negative 12/14/17, repeat blood cultures2 negative 12/14/17 sputum sample did not meet criteria for culture 12/16/17, patient underwent bronchoscopy: AFB smear was negative, AFB culture pending, preliminary Legionella culture negative, Gram stain negative 12/17/17 urine culture showed no growth. Pertinent Labs: 12/14/17 Procalcitonin level was .34 12/17/17: ESR: 109, CRP: 176 /: Continues to have low-grade fever, no tachycardia, tachypnea or hypotension. Continues to require oxygen mask with increased oxygen demand at this time. 12/21: Tmax overnight was 99.9. Currently on BiPAP, WBC remains stable Plan: vancomycin and Zosyn day 11 patient received 3 days of Levaquin that was stopped on 12/17/16. Plan for repeat bronchoscopy for airway clearance per pulmonology Qualifiers: Sepsis type: sepsis due to unspecified organism Qualified Code(s): A41.9 - Sepsis, unspecified organism (2) Multifocal pneumonia Current Visit: Yes Status: Acute As above. 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 Continue pulmonary rehabilitation Management per primary team. (4) Acute respiratory failure Current Visit: Yes Status: Acute Likely secondary to worsening multifocal pneumonia and mucous plugging S/P swallow evaluation, it was recommended that he continue with regular textures and thin liquids, determined that further swallow therapy was not warranted. Qualifiers: Respiratory failure complication: unspecified whether with hypoxia or hypercapnia Qualified Code(s): J96.00 - Acute respiratory failure, unspecified whether with hypoxia or hypercapnia (5) Nephrolithiasis Current Visit: Yes Status: Acute 12/17/17: CT of the abdomen and pelvis showed mild right-sided hydronephrosis secondary to a stone in the UPJ on 12/19/17, patient underwent cystoscopy with the right retrograde pyelogram and placement of a stent in the right ureter with removal of the bladder stone Management per urology and primary team (6) Thrombocytopenia Current Visit: Yes Status: Resolved Resolved, continue to monitor. (7) UTI (urinary tract infection) due to urinary indwelling catheter Current Visit: No Status: Acute Urine culture from 12/12/17 grew enterococcus, resistant to doxycycline same antibiotic coverage as #1 above Qualifiers: Indwelling urinary catheter type: cystostomy catheter Encounter type: initial encounter Qualified Code(s): T83.510A - Infection and inflammatory reaction due to cystostomy catheter, initial encounter; N39.0 - Urinary tract infection, site not specified; N39.0 - Urinary tract infection, site not specified - Subjective Interval history: 37-year-old male evaluated at bedside. He was Laying in bed comfortably with BiPAP mask on. Patient appeared to be in mild respiratory distress. He denies nausea, vomiting, diarrhea, fever, chest pain. He does admit to shortness of breath and chills. He does report pain in his right abdominal/flank area from where he had a stent placed. Infect Dis PN-Objective Data - Labs CBC & Chem 7: 12/21/17 05:35 12/21/17 05:35 Labs: Laboratory Results - last 24 hr 12/16/17 12/21/17 12/21/17 14:50 05:35 05:35 WBC 12.6 H RBC 3.91 L Hgb 11.4 L Hct 36.2 L MCV 92.6 MCH 29.2 MCHC 31.5 L RDW 13.9 Plt Count 366 MPV 8.5 L Immature Gran % 0.8 Seg Neutrophils % 84.4 Lymphocytes % 7.6 Monocytes % 4.1 Eosinophils % 2.7 Basophils % 0.4 Neutrophils # 10.6 H Lymphocytes # 1.0 Monocytes # 0.5 Eosinophils # 0.3 Basophils # 0.1 ABG pH ABG pCO2 ABG pO2 ABG HCO3 ABG Total CO2 ABG O2 Saturation ABG Base Excess O2 Delivery Device Sodium 133 L Potassium 4.3 Chloride 93 L Carbon Dioxide 44 H* BUN 8 Creatinine 0.42 L Est GFR ( Amer) > 60 Est GFR (Non-Af Amer) > 60 BUN/Creatinine Ratio 19 Glucose 105 Calculated Osmolality 275 L Calcium 8.9 Phosphorus 3.6 Magnesium 1.8 Fluid Source NOT PROVIDED Influenza Type A (PCR) NOT DETECTED Influenza Type B (PCR) NOT DETECTED RSV (PCR) NOT DETECTED 12/21/17 09:22 WBC RBC Hgb Hct MCV MCH MCHC RDW Plt Count MPV Immature Gran % Seg Neutrophils % Lymphocytes % Monocytes % Eosinophils % Basophils % Neutrophils # Lymphocytes # Monocytes # Eosinophils # Basophils # ABG pH 7.42 ABG pCO2 61 H ABG pO2 64 L ABG HCO3 39 H ABG Total CO2 41 H ABG O2 Saturation 92 L ABG Base Excess 12 H O2 Delivery Device Cannula Sodium Potassium Chloride Carbon Dioxide BUN Creatinine Est GFR ( Amer) Est GFR (Non-Af Amer) BUN/Creatinine Ratio Glucose Calculated Osmolality Calcium Phosphorus Magnesium Fluid Source Influenza Type A (PCR) Influenza Type B (PCR) RSV (PCR) Cultures: Cultures 12/14/17 16:30 Blood Culture - Final Peripheral Venipuncture No growth. 12/14/17 16:30 Blood Culture - Final Peripheral Venipuncture No growth. 12/17/17 18:40 Urine Culture - Final Urine,Clean Catch No growth. 12/16/17 14:50 Respiratory Culture - Final Right Middle Lobe Lung No growth. 12/13/17 14:07 Blood Culture - Final Peripheral Venipuncture No growth. 12/13/17 14:07 Blood Culture - Final Peripheral Venipuncture No growth. 12/16/17 14:50 Legionella Culture - Final Right Middle Lobe Lung 12/16/17 14:50 Acid Fast Stain - Final Right Middle Lobe Lung 12/16/17 14:50 Gram Stain - Final Right Middle Lobe Lung 12/12/17 12:45 Urine Culture - Final Urine,Clean Catch Enterococcus faecalis 12/14/17 23:15 Sputum Culture - Final Sputum 12/12/17 12:45 Legionella Antigen - Final Urine,Clean Catch Streptococcus pneumoniae Antigen (M - Final 12/11/17 19:45 Sputum Culture - Final Sputum Serology 12/17/17 12/16/17 12/16/17 Range/Units 18:19 14:50 14:50 Urine Color Dark Yellow (Yellow) Urine Clarity Cloudy A (Clear) Urine pH 6.5 (5.0-8.0) pH Units Ur Specific [place] 1.020 (1.010-1.025) Urine Protein 30 H (Neg-Trace) mg/dL Urine Glucose (UA) Normal (Normal) mg/dL Urine Ketones Negative (Negative) mg/dL Urine Blood Moderate H (Negative) Urine Nitrite Negative (Negative) Urine Bilirubin Negative (Negative) Urine Urobilinogen Normal (Normal) mg/dL Ur Leukocyte Esterase Moderate H (Negative) Urine Microscopic RBC 50-100 H (0-3) per hpf Urine Microscopic WBC 30-50 H (0-3) per hpf Ur Squamous Epith Cells Many H (None-Few) per lpf Urine Bacteria Few (None-Few) per hpf Hyaline Casts Few (None-Few) per lpf Ur Culture Indicated? NO. (NO) Fluid Source right middle lobe BA NOT PROVIDED Fluid Volume 19 mL Fluid Appearance Cloudy A (Clear) Fluid RBC 0.002 (No Ref Range) M/mcL Fld Tot Nucleated Cell 1301 (No Ref Range) TNC/mcL Fluid Seg Neutrophil % 93.2 % Fld Band Neutrophil % TNP Fluid Lymphocytes % 2.3 % Fluid Monocytes % TNP Fluid Eosinophils % TNP Fluid Basophils % TNP Fluid Other Cells % 4.5 % Chlamy pneumoniae PCR (Not Detect) Adenovirus (PCR) (Not Detect) B. pertussis DNA (PCR) (Not Detect) B.parapertussis DNA PCR (Not Detect) Coronavirus OC43 (PCR) (Not Detect) Coronavirus HKU1 (PCR) (Not Detect) Coronavirus 229E (PCR) (Not Detect) Coronavirus NL63 (PCR) (Not Detect) Human Metapneumovir PCR (Not Detect) Influenza A (H1) PCR (Not Detect) Influ A (H1N1/09) PCR (Not Detect) Influenza A (H3) PCR (Not Detect) Influenza Type A (PCR) NOT DETECTED Influenza A Untype (PCR) (Not Detect) Influenza Type B (PCR) NOT DETECTED (Not Detect) M.pneumoniae DNA (PCR) (Not Detect) Parainfluenza 1 (PCR) (Not Detect) Parainfluenza 2 (PCR) (Not Detect) Parainfluenza 3 (PCR) (Not Detect) Parainfluenza 4 (PCR) (Not Detect) RSV (PCR) NOT DETECTED (Not Detect) Entero/Rhino (PCR) (Not Detect) 12/14/17 12/12/17 Range/Units 17:19 12:45 Urine Color Dark Yellow (Yellow) Urine Clarity Turbid A (Clear) Urine pH 7.0 (5.0-8.0) pH Units Ur Specific [place] 1.016 (1.010-1.025) Urine Protein 30 H (Neg-Trace) mg/dL Urine Glucose (UA) Normal (Normal) mg/dL Urine Ketones Negative (Negative) mg/dL Urine Blood Large H (Negative) Urine Nitrite Positive A (Negative) Urine Bilirubin Negative (Negative) Urine Urobilinogen Normal (Normal) mg/dL Ur Leukocyte Esterase Large H (Negative) Urine Microscopic RBC TNTC H (0-3) per hpf Urine Microscopic WBC TNTC H (0-3) per hpf Ur Squamous Epith Cells Moderate H (None-Few) per lpf Urine Bacteria Few (None-Few) per hpf Hyaline Casts None Seen (None-Few) per lpf Ur Culture Indicated? (NO) Fluid Source Fluid Volume mL Fluid Appearance (Clear) Fluid RBC (No Ref Range) M/mcL Fld Tot Nucleated Cell (No Ref Range) TNC/mcL Fluid Seg Neutrophil % % Fld Band Neutrophil % Fluid Lymphocytes % % Fluid Monocytes % Fluid Eosinophils % Fluid Basophils % Fluid Other Cells % % Chlamy pneumoniae PCR Not Detected (Not Detect) Adenovirus (PCR) Not Detected (Not Detect) B. pertussis DNA (PCR) Not Detected (Not Detect) B.parapertussis DNA PCR Not Detected (Not Detect) Coronavirus OC43 (PCR) Not Detected (Not Detect) Coronavirus HKU1 (PCR) Not Detected (Not Detect) Coronavirus 229E (PCR) Not Detected (Not Detect) Coronavirus NL63 (PCR) Not Detected (Not Detect) Human Metapneumovir PCR Not Detected (Not Detect) Influenza A (H1) PCR Not Detected (Not Detect) Influ A (H1N1/09) PCR Not Detected (Not Detect) Influenza A (H3) PCR Not Detected (Not Detect) Influenza Type A (PCR) Influenza A Untype (PCR) Not Detected (Not Detect) Influenza Type B (PCR) Not Detected (Not Detect) M.pneumoniae DNA (PCR) Not Detected (Not Detect) Parainfluenza 1 (PCR) Not Detected (Not Detect) Parainfluenza 2 (PCR) Not Detected (Not Detect) Parainfluenza 3 (PCR) Not Detected (Not Detect) Parainfluenza 4 (PCR) Not Detected (Not Detect) RSV (PCR) Not Detected (Not Detect) Entero/Rhino (PCR) Not Detected (Not Detect) - Impressions Impressions KUB X-Ray 12/16/17 11:33 IMPRESSION: Nonobstructive bowel gas pattern. Moderate stool burden within the colon. 15 mm calcification in right upper quadrant may represent a renal stone. Severe bilateral hip degenerative changes. D/ / 12/16/2017 15:29:17 rAtur Odom MD / [facility] Interpreting Provider: Artur Odom MD Chest X-Ray 12/20/17 21:38 IMPRESSION: 1. Multilobar pneumonia with interval development of right upper lobe pneumonia. Follow-up to resolution is recommended. D/ / Wojciech Law MD / Wojciech Law MD Interpreting Provider: Wojciech Law MD Exam - Constitutional Vitals: Temp Pulse Resp BP Pulse Ox 98.9 F 82 18 105/67 94 12/21/17 06:48 12/21/17 06:48 12/21/17 07:42 12/21/17 06:48 12/21/17 07:42 General appearance: obese Exam: Alert and oriented X3, appears to be in mild respiratory distress. - Head Head exam: Present: atraumatic, normocephalic - Respiratory Respiratory exam: Present: prolonged expiratory phase, rales, respiratory distress, rhonchi Additional comments: Course breath sounds heard in all lung burgess. - Cardiovascular Cardiovascular exam: Present: RRR, +S1, +S2 - GI/Abdominal Additional comments: Abdomen is obese, distended, bowel sounds present. Tenderness to palpation in the right abdominal/flank area. - Extremities Exam Additional comments: Bilateral lower extremity below the knee amputations. - Neurological Exam Neurological exam: Present: alert, oriented X3 Additional comments: Patient has decreased muscle tone and bilateral upper extremities, he is able to move his arms but cannot use his hands. - Psychiatric Psychiatric exam: Present: flat affect Consult Discharge Plan - Plan Referrals: Joseph Pelayo MD [Primary Care Provider] - (please call upon discharge, per ocp office...) - Attending Attestation I examined this patient and my medical decision-making was reviewed with the Resident Physician. I agree with the documented findings, disposition and treatment plan as described except to the extent set forth below.
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
[2017-12-21] MEDS ORDERED: 0.9 % Sodium Chloride 1,000 ML IVC SCH ×2 (10:00→15:30)
--- NOTE | 2017-12-21 12:16 | Internal Med Progress Note ---
Date of Encounter: 12/21/17 Time of Encounter: 11:55 - Time Spent With Patient Total time spent is greater than 50% in coordination of care (as documented) at patient's floor/unit and/or counseling patient: - Subjective Interval history: Pt seen and examined with father present at bedside. POD #3 s/p post right ureteral stent placement noted to have worsening respiratory failure with hypercapnea. PUlmonology evaluation requested Pt scheduled for a repeat bronchoscopy later today (12/21/17) - Assessment and plan (1) Acute hypoxemic respiratory failure Current Visit: Yes Status: Acute Assessment and plan: continue O2 supplementation Continue nebulizers. Treat pneumonia as below. Patient has a history of mucus plugs and is at risk again. continue pulm toileting Bipap support as needed (2) Sepsis Current Visit: Yes Status: Acute Assessment and plan: Patient met sepsis criteria with fever, tachycardia, leukocytosis and pneumonia as a source. We will treat as below. Normal lactic acid. Qualifiers: Sepsis type: sepsis due to unspecified organism Qualified Code(s): A41.9 - Sepsis, unspecified organism (3) Pneumonia Current Visit: Yes Status: Acute Assessment and plan: ID evaluation appreciated continue Vancomycin and Zosyn vanco dose adjusted as per vanc trough continue levaquin PUlm evaluation appreciated s/p bronchoscopy (12/16/17), awaiting microbiological and cytological interpretation; noted to have extensive secretions throughout the right tracheobronchial tree Scheduled for repeat Bronchoscopy today sputum culture reported Staph aureus speech therapy evaluation appreciated, diet adjusted as per their recommendations maintain aspiration precautions Qualifiers: Pneumonia type: due to other aerobic Gram-negative bacteria Laterality: right Lung location: unspecified part of lung Qualified Code(s): J15.6 - Pneumonia due to other Gram-negative bacteria (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 resumed on home meds (5) DVT prophylaxis Current Visit: No Status: Acute Assessment and plan: Heparin subcutaneous (6) Electrolyte abnormality Current Visit: No Status: Acute resolved continue to monitor electrolytes and replace as needed (7) UTI Current Visit: No Status: Acute Urine culture positive for enterococcus faecalis, continue current abx (8) Ureteral Calculi Current Visit: No Status: Acute urology evaluation appreciated POD #3 s/p post right ureteral stent placement (DOS: 12/18/17) - Constitutional Vitals: Temp Pulse Resp BP Pulse Ox 98.7 F 84 22 101/64 95 12/21/17 11:36 12/21/17 11:36 12/21/17 11:36 12/21/17 11:36 12/21/17 11:36 General appearance: Present: A&O X 3 (quadriplegic with contracted upper extremities ), no acute distress, obese - Head Head exam: Present: atraumatic, normocephalic - Eye Eye exam: Present: conjuntiva pink, sclera anicteric - Respiratory Respiratory exam: Absent: rales (diffuse rhonchi ), wheezes - Cardiovascular Cardiovascular exam: Present: RRR, +S1, +S2 - GI/Abdominal GI/Abdominal exam: Present: normal bowel sounds, soft, no peritoneal signs. Absent: distended, tenderness Additional comments: suprapubic catheter in place - Extremities Exam Extremities exam: Present: warm, radial pulses palpable and symmetrical (s/p bilateral BKA) - Neurological Exam Neurological exam: Present: oriented X3 Internal Medicine: Result - Labs CBC & Chem 7: 12/21/17 05:35 12/21/17 05:35 Labs: Short CBC 12/21/17 Range/Units 05:35 WBC 12.6 H (4.3-11.1) K/mcL Hgb 11.4 L (12.9-16.9) g/dL Hct 36.2 L (37.5-50.1) % Plt Count 366 (140-400) K/mcL Neutrophils # 10.6 H (1.6-8.9) K/mcL BMP 12/21/17 05:35 Sodium 133 L Potassium 4.3 Chloride 93 L Carbon Dioxide 44 H* BUN 8 Creatinine 0.42 L Glucose 105 Calcium 8.9 - ABG Interpretation ABG results: ABG ABG pH 7.42 pH Units (7.32-7.45) 12/21/17 09:22 ABG pCO2 61 mmHg (35-45) H 12/21/17 09:22 ABG pO2 64 mmHg (85-104) L 12/21/17 09:22 ABG O2 Saturation 92 % (95-98) L 12/21/17 09:22 PT/INR, D-dimer PT 13.6 Seconds (9.4-12.1) H 12/11/17 13:59 D-Dimer 339 ng/mLFEU (0-500) 12/11/17 13:59 - Impressions Impressions KUB X-Ray 12/16/17 11:33 IMPRESSION: Nonobstructive bowel gas pattern. Moderate stool burden within the colon. 15 mm calcification in right upper quadrant may represent a renal stone. Severe bilateral hip degenerative changes. D/ / 12/16/2017 15:29:17 Artur Odom MD / marky Interpreting Provider: Artur Odom MD Chest X-Ray 12/20/17 21:38 IMPRESSION: 1. Multilobar pneumonia with interval development of right upper lobe pneumonia. Follow-up to resolution is recommended. D/ / Wojciech Law MD / Wojciech Law MD Interpreting Provider: Wojciech Law MD Consult Discharge Plan - Plan Referrals: Joseph Pelayo MD [Primary Care Provider] - (please call upon discharge, per ocp office...)
[2017-12-21] MEDS ORDERED: *HR* Midazolam HCl 5 MG/5 ML VIAL IVP ONE (15:17)
[2017-12-21] MEDS ORDERED: *HR* FentaNYL (PF) 100 MCG/2 ML VIAL ONE (15:17)
[2017-12-21] MEDS ORDERED: Lidocaine Viscous Oral Soln 15 ML SOLUTION ONE (15:17)
[2017-12-21] MEDS ORDERED: Ipratropium/Albuterol Neb 3 ML ONE (15:55)
[2017-12-21] MEDS ORDERED: Ipratropium/Albuterol Neb 3 ML IH ONE (15:56)
--- NOTE | 2017-12-21 16:11 | Urology Progress Note ---
Date of Encounter: 12/21/17 Time of Encounter: 16:10 - Assessment and Plan (1) Nephrolithiasis Current Visit: Yes Status: Acute Assessment and plan: POD #2 s/p right ureteral stent placement. 1. Will arrange for ureteroscopy as an outpatient or once cleared from a medical standpoint. 2. Urology will follow peripherally. Call with questions. (2) Sepsis Current Visit: Yes Status: Acute Qualifiers: Sepsis type: sepsis due to unspecified organism Qualified Code(s): A41.9 - Sepsis, unspecified organism (3) UTI (urinary tract infection) Current Visit: No Status: Acute Qualifiers: Urinary tract infection type: catheter-associated UTI Indwelling urinary catheter type: cystostomy catheter Encounter type: subsequent encounter Qualified Code(s): T83.510D - Infection and inflammatory reaction due to cystostomy catheter, subsequent encounter; N39.0 - Urinary tract infection, site not specified; N39.0 - Urinary tract infection, site not specified Progress Note Narrative: Postop day #2 status post right ureteral stent placement. He is doing well today. Urine is clear. Objective Initial Vital Signs Temp Pulse Resp BP Pulse Ox 103.1 F H 100 22 134/83 89 12/11/17 13:56 12/11/17 13:56 12/11/17 13:56 12/11/17 13:56 12/11/17 13:56 - General physical appearance Present: well developed, no distress - Genitourinary Urine Appearance: Present: Clear - Labs 12/21/17 05:35 12/21/17 05:35 Diabetes panel 12/21/17 Range/Units 05:35 Sodium 133 L (136-145) mEq/L Potassium 4.3 (3.5-5.1) mEq/L Chloride 93 L (98-107) mEq/L Carbon Dioxide 44 H* (23-29) mEq/L BUN 8 (6-20) mg/dL Creatinine 0.42 L (0.70-1.30) mg/dL Glucose 105 (70-105) mg/dL Calcium 8.9 (8.6-10.3) mg/dL Calcium panel 12/21/17 Range/Units 05:35 Calcium 8.9 (8.6-10.3) mg/dL Phosphorus 3.6 (2.7-4.5) mg/dL Pituitary panel 12/21/17 Range/Units 05:35 Sodium 133 L (136-145) mEq/L Potassium 4.3 (3.5-5.1) mEq/L Chloride 93 L (98-107) mEq/L Carbon Dioxide 44 H* (23-29) mEq/L BUN 8 (6-20) mg/dL Creatinine 0.42 L (0.70-1.30) mg/dL Glucose 105 (70-105) mg/dL Calcium 8.9 (8.6-10.3) mg/dL Adrenal panel 12/21/17 Range/Units 05:35 Sodium 133 L (136-145) mEq/L Potassium 4.3 (3.5-5.1) mEq/L Chloride 93 L (98-107) mEq/L Carbon Dioxide 44 H* (23-29) mEq/L BUN 8 (6-20) mg/dL Creatinine 0.42 L (0.70-1.30) mg/dL Glucose 105 (70-105) mg/dL Calcium 8.9 (8.6-10.3) mg/dL Consult Discharge Plan - Plan Referrals: Joseph Pelayo MD [Primary Care Provider] - (please call upon discharge, per ocp office...)
[2017-12-21 18:29] LABS: Carbon Dioxide 31 mEq/L (23-29)
[2017-12-21 22:28] LABS: Appearance of Body Fluid Hazy (Clear); Volume of Body Fluid 15 mL
[2017-12-22] MEDS: Ipratropium/Albuterol Neb 3 ML IH SCH ×6 (03:59→23:45)
[2017-12-22] MEDS: *HR* Heparin 5,000 UNIT/ML VIAL SQ SCH ×2 (04:43→13:31)
[2017-12-22] MEDS: *HR* OxyCODONE ER (12 HR) 10 MG TABLET PO SCH ×3 (06:41→21:58)
[2017-12-22] MEDS: Piperacillin/Tazobactam 3.375 GM in 0.9 % Sodium Chloride Mini Bag 100 ML IVPB SCH ×3 (06:44→21:58)
--- NOTE | 2017-12-22 07:34 | Pulmonology Progress Note ---
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 Antibiotics for pneumonia. I have discussed with patient in the presence of the nurse and his father in the room about bronchoscopy for airway clearance since he felt better after the first one and all the risks, alternative, benefits of the procedure explained to the patient and patient and his father both agreed to have it done. We will arrange it for him. Discussed with primary team. 12/22 patient is breathing better today after bronchoscopy and continue chest physical therapy with bronchodilators and empiric antibiotics. Consider infectious disease consultation for management of antibiotics. (2) Acute hypoxemic respiratory failure Current Visit: Yes Status: Acute (3) Pneumonia Current Visit: Yes Status: Acute Qualifiers: Pneumonia type: due to other aerobic Gram-negative bacteria Laterality: right Lung location: unspecified part of lung Qualified Code(s): J15.6 - Pneumonia due to other Gram-negative bacteria Subjective Principal diagnosis: Pneumonia Interval history: Patient was breathing better today after bronchoscopy but is complaining discomfort from being in bed Objective PUL Vital signs: Last Vital Signs Temp 98.2 F 12/22/17 04:36 Pulse 76 12/22/17 04:36 Resp 16 12/22/17 04:36 BP 95/60 12/22/17 04:36 Pulse Ox 93 12/22/17 04:36 General appearance: appears uncomfortable Eyes: nonicteric Neck: supple Effort: mildly labored Auscultation: bilateral: rhonchi Percussion: bilateral: not dull Cardiovascular: regular rate and rhythm Gastrointestinal: normoactive bowel sounds, non-distended Extremities: no cyanosis normal mental status mood appropriate Results - Laboratory Findings CBC and BMP: 12/21/17 05:35 12/21/17 05:35 ABG ABG pH 7.42 pH Units (7.32-7.45) 12/21/17 09:22 ABG pCO2 61 mmHg (35-45) H 12/21/17 09:22 ABG pO2 64 mmHg (85-104) L 12/21/17 09:22 ABG O2 Saturation 92 % (95-98) L 12/21/17 09:22 PT/INR, D-dimer PT 13.6 Seconds (9.4-12.1) H 12/11/17 13:59 D-Dimer 339 ng/mLFEU (0-500) 12/11/17 13:59 Abnormal lab findings: Abnormal lab results WBC 12.6 K/mcL (4.3-11.1) H 12/21/17 05:35 RBC 3.91 M/mcL (4.19-5.50) L 12/21/17 05:35 Hgb 11.4 g/dL (12.9-16.9) L 12/21/17 05:35 Hct 36.2 % (37.5-50.1) L 12/21/17 05:35 MCHC 31.5 g/dL (31.6-35.5) L 12/21/17 05:35 MPV 8.5 fL (9.4-12.4) L 12/21/17 05:35 Neutrophils # 10.6 K/mcL (1.6-8.9) H 12/21/17 05:35 Nucleated RBCs/100 WBC 0.3 /100 WBC (0) H 12/13/17 05:11 Platelet Estimate Slight Decrease (Normal) L 12/14/17 05:33 ESR 109 mm/hr (0-10) H 12/17/17 06:12 PT 13.6 Seconds (9.4-12.1) H 12/11/17 13:59 ABG pCO2 61 mmHg (35-45) H 12/21/17 09:22 ABG pO2 64 mmHg (85-104) L 12/21/17 09:22 ABG HCO3 39 mEq/L (21-27) H 12/21/17 09:22 ABG Total CO2 41 mEq/L (20-26) H 12/21/17 09:22 ABG O2 Saturation 92 % (95-98) L 12/21/17 09:22 ABG Base Excess 12 mEq/L (-2 to 3) H 12/21/17 09:22 Sodium 133 mEq/L (136-145) L 12/21/17 05:35 Chloride 93 mEq/L (98-107) L 12/21/17 05:35 Carbon Dioxide 31 mEq/L (23-29) H 12/21/17 05:35 Creatinine 0.42 mg/dL (0.70-1.30) L 12/21/17 05:35 Calculated Osmolality 275 (280-300) L 12/21/17 05:35 C-Reactive Protein 176 mg/L (Less than 10) H 12/17/17 18:35 Procalcitonin 0.34 ng/mL (<=0.10) H 12/14/17 16:30 Urine Clarity Cloudy (Clear) A 12/17/17 18:19 Urine Protein 30 mg/dL (Neg-Trace) H 12/17/17 18:19 Urine Blood Moderate (Negative) H 12/17/17 18:19 Ur Leukocyte Esterase Moderate (Negative) H 12/17/17 18:19 Urine Microscopic RBC 50-100 per hpf (0-3) H 12/17/17 18:19 Urine Microscopic WBC 30-50 per hpf (0-3) H 12/17/17 18:19 Ur Squamous Epith Cells Many per lpf (None-Few) H 12/17/17 18:19 Fluid Appearance Hazy (Clear) A 12/21/17 15:51 Vancomycin Trough 13 mcg/mL (5-10) H 12/21/17 17:03 - Microbiology Findings Microbiology Findings: Microbiology, Last 48 Hours 12/21/17 15:51 Gram Stain - Final Right Upper Lobe Lung 12/14/17 16:30 Blood Culture - Final Peripheral Venipuncture No growth. 12/14/17 16:30 Blood Culture - Final Peripheral Venipuncture No growth. 12/17/17 18:40 Urine Culture - Final Urine,Clean Catch No growth. - Clinical Findings Intake & Output: Intake & Output 12/21/17 12/21/17 12/22/17 15:59 23:59 07:59 Intake Total 540 / 540 600 / 600 100 / 100 Output Total 1350 / 1350 1800 / 1800 Balance -810 / -810 -1200 / -1200 100 / 100 Weight 74.5 kg Consult Discharge Plan - Plan Referrals: Joseph Pelayo MD [Primary Care Provider] - (please call upon discharge, per ocp office...)
[2017-12-22] MEDS: Sennosides/Docusate Sodium TABLET PO SCH ×2 (09:06→21:58)
[2017-12-22] MEDS: Pregabalin 75 MG CAPSULE PO SCH (09:07)
[2017-12-22] MEDS: Baclofen 10 MG TABLET PO SCH ×2 (09:09→21:58)
--- NOTE | 2017-12-22 09:23 | Infectious Disease Progress No ---
Date of Encounter: 12/22/17 Time of Encounter: 09:21 - Assessment and Plan (1) Sepsis Current Visit: Yes Status: Acute Patient met sepsis criteria at the time of admission with fever of 103.1, pulse of 100, respirations of 22, WBC of 15.1. 12/11/17: chest x-ray showed right Lorna hilar opacities suspicious for pneumonia 12/14/17 chest x-ray showed progressive bilateral multifocal pneumonia. 12/14/17 chest CTA showed no evidence of PE, multifocal pulmonary infiltrates greater on the right and left, complete lower lobe atelectasis bilaterally, bilateral pleural effusions more prominent on the right, secretions within tracheobronchial tree, media asked sternal and right A[place]on adenopathy. 12/17/17: CT of the abdomen and pelvis showed mild right-sided hydronephrosis secondary to a stone in the UPJ, bibasilar pulmonary infiltrates partially loculated right pleural effusion and partial atelectasis in both lower lobe. 12/21/17 chest x-ray showed multilobar pneumonia with interval development of right upper lobe pneumonia 12/16/17 patient underwent bronchoscopy that showed bilateral pneumonia, mucous plug found in the right middle lobe and right lower lobe, patient underwent bronchoalveolar lavage, exudates were found throughout the tracheobronchial tree and cultures showed no growth 12/21/17 patient underwent repeat bronchoscopy significant for right upper lobe pneumonia, mucous plug found throughout the tracheobronchial tree, BAL performed. Cr Clearace: 240 based on ideal body weight. Microbiology: respiratory infectious panel negative 12/11/17: blood cultures X2 negative 12/11/17 sputum sample not meet criteria for culture 12/12/17 Legionella and S. Pneumoniae antigens negative 12/12/17 urine culture grew enterococcus faecalis 12/13/17, repeat blood cultures X2 negative 12/14/17, repeat blood cultures2 negative 12/14/17 sputum sample did not meet criteria for culture 12/16/17, patient underwent bronchoscopy: AFB smear was negative, AFB culture pending, preliminary Legionella culture negative, Gram stain negative 12/17/17 urine culture showed no growth. 12/21/17: repeat bronchoscopy Gram stain negative, 99% segmented neutrophils Pertinent Labs: 12/14/17 Procalcitonin level was .34 12/17/17: ESR: 109, CRP: 176 /: Continues to have low-grade fever, no tachycardia, tachypnea or hypotension. Continues to require oxygen mask with increased oxygen demand at this time. 12/21: Tmax overnight was 99.9. Currently on BiPAP, WBC remains stable 12/22: patient was afebrile overnight. continues to require high flow oxygen. Plan: vancomycin and Zosyn day 12 patient received 3 days of Levaquin that was stopped on 12/17/16. Await restive microbiology from bronchoscopy on 12/21. Duration of antibiotics unsure at this time, will depend on clinical picture. Qualifiers: Qualified Code(s): A41.9 - Sepsis, unspecified organism (2) Multifocal pneumonia Current Visit: Yes Status: Acute As above. 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 Continue pulmonary rehabilitation Management per primary team. (4) Acute respiratory failure Current Visit: Yes Status: Acute Likely secondary to worsening multifocal pneumonia and mucous plugging S/P swallow evaluation, it was recommended that he continue with regular textures and thin liquids, determined that further swallow therapy was not warranted. Qualifiers: Qualified Code(s): J96.00 - Acute respiratory failure, unspecified whether with hypoxia or hypercapnia (5) Nephrolithiasis Current Visit: Yes Status: Acute 12/17/17: CT of the abdomen and pelvis showed mild right-sided hydronephrosis secondary to a stone in the UPJ on 12/19/17, patient underwent cystoscopy with the right retrograde pyelogram and placement of a stent in the right ureter with removal of the bladder stone Management per urology and primary team (6) Thrombocytopenia Current Visit: Yes Status: Resolved Resolved, continue to monitor. (7) UTI (urinary tract infection) due to urinary indwelling catheter Current Visit: No Status: Acute Urine culture from 12/12/17 grew enterococcus, resistant to doxycycline same antibiotic coverage as #1 above Qualifiers: Qualified Code(s): T83.510A - Infection and inflammatory reaction due to cystostomy catheter, initial encounter; N39.0 - Urinary tract infection, site not specified; N39.0 - Urinary tract infection, site not specified - Subjective Interval history: 37-year-old male evaluated at bedside. He was laying in bed resting comfortably. He denies nausea, vomiting, diarrhea, fever, chills, chest pain. He does reports shortness of breath, but states that his breathing is a lot better today compared to yesterday. He denies any new complaints today. Infect Dis PN-Objective Data - Labs CBC & Chem 7: 12/22/17 08:54 12/22/17 08:54 Labs: Laboratory Results - last 24 hr 12/21/17 12/21/17 12/21/17 05:35 09:22 15:51 ABG pH 7.42 ABG pCO2 61 H ABG pO2 64 L ABG HCO3 39 H ABG Total CO2 41 H ABG O2 Saturation 92 L ABG Base Excess 12 H O2 Delivery Device Cannula Carbon Dioxide 31 H Fluid Source rul bal Fluid Volume 15 Fluid Appearance Hazy A Fluid RBC TNP Fld Tot Nucleated Cell TNP Fluid Seg Neutrophil % 99.0 Fluid Lymphocytes % 1.0 Vancomycin Trough 12/21/17 17:03 ABG pH ABG pCO2 ABG pO2 ABG HCO3 ABG Total CO2 ABG O2 Saturation ABG Base Excess O2 Delivery Device Carbon Dioxide Fluid Source Fluid Volume Fluid Appearance Fluid RBC Fld Tot Nucleated Cell Fluid Seg Neutrophil % Fluid Lymphocytes % Vancomycin Trough 13 H Cultures: Cultures 12/21/17 15:51 Gram Stain - Final Right Upper Lobe Lung 12/14/17 16:30 Blood Culture - Final Peripheral Venipuncture No growth. 12/14/17 16:30 Blood Culture - Final Peripheral Venipuncture No growth. 12/17/17 18:40 Urine Culture - Final Urine,Clean Catch No growth. 12/16/17 14:50 Respiratory Culture - Final Right Middle Lobe Lung No growth. 12/13/17 14:07 Blood Culture - Final Peripheral Venipuncture No growth. 12/13/17 14:07 Blood Culture - Final Peripheral Venipuncture No growth. 12/16/17 14:50 Legionella Culture - Final Right Middle Lobe Lung 12/16/17 14:50 Acid Fast Stain - Final Right Middle Lobe Lung 12/16/17 14:50 Gram Stain - Final Right Middle Lobe Lung 12/12/17 12:45 Urine Culture - Final Urine,Clean Catch Enterococcus faecalis 12/14/17 23:15 Sputum Culture - Final Sputum 12/12/17 12:45 Legionella Antigen - Final Urine,Clean Catch Streptococcus pneumoniae Antigen (M - Final 12/11/17 19:45 Sputum Culture - Final Sputum Serology 12/21/17 12/17/17 12/16/17 Range/Units 15:51 18:19 14:50 Urine Color Dark Yellow (Yellow) Urine Clarity Cloudy A (Clear) Urine pH 6.5 (5.0-8.0) pH Units Ur Specific [place] 1.020 (1.010-1.025) Urine Protein 30 H (Neg-Trace) mg/dL Urine Glucose (UA) Normal (Normal) mg/dL Urine Ketones Negative (Negative) mg/dL Urine Blood Moderate H (Negative) Urine Nitrite Negative (Negative) Urine Bilirubin Negative (Negative) Urine Urobilinogen Normal (Normal) mg/dL Ur Leukocyte Esterase Moderate H (Negative) Urine Microscopic RBC 50-100 H (0-3) per hpf Urine Microscopic WBC 30-50 H (0-3) per hpf Ur Squamous Epith Cells Many H (None-Few) per lpf Urine Bacteria Few (None-Few) per hpf Hyaline Casts Few (None-Few) per lpf Ur Culture Indicated? NO. (NO) Fluid Source rul bal right middle lobe BA Fluid Volume 15 19 mL Fluid Appearance Hazy A Cloudy A (Clear) Fluid RBC TNP 0.002 (No Ref Range) M/mcL Fld Tot Nucleated Cell TNP 1301 (No Ref Range) TNC/mcL Fluid Seg Neutrophil % 99.0 93.2 % Fld Band Neutrophil % TNP Fluid Lymphocytes % 1.0 2.3 % Fluid Monocytes % TNP Fluid Eosinophils % TNP Fluid Basophils % TNP Fluid Other Cells % 4.5 % Chlamy pneumoniae PCR (Not Detect) Adenovirus (PCR) (Not Detect) B. pertussis DNA (PCR) (Not Detect) B.parapertussis DNA PCR (Not Detect) Coronavirus OC43 (PCR) (Not Detect) Coronavirus HKU1 (PCR) (Not Detect) Coronavirus 229E (PCR) (Not Detect) Coronavirus NL63 (PCR) (Not Detect) Human Metapneumovir PCR (Not Detect) Influenza A (H1) PCR (Not Detect) Influ A (H1N1/09) PCR (Not Detect) Influenza A (H3) PCR (Not Detect) Influenza Type A (PCR) Influenza A Untype (PCR) (Not Detect) Influenza Type B (PCR) (Not Detect) M.pneumoniae DNA (PCR) (Not Detect) Parainfluenza 1 (PCR) (Not Detect) Parainfluenza 2 (PCR) (Not Detect) Parainfluenza 3 (PCR) (Not Detect) Parainfluenza 4 (PCR) (Not Detect) RSV (PCR) (Not Detect) Entero/Rhino (PCR) (Not Detect) 12/16/17 12/14/17 12/12/17 Range/Units 14:50 17:19 12:45 Urine Color Dark Yellow (Yellow) Urine Clarity Turbid A (Clear) Urine pH 7.0 (5.0-8.0) pH Units Ur Specific [place] 1.016 (1.010-1.025) Urine Protein 30 H (Neg-Trace) mg/dL Urine Glucose (UA) Normal (Normal) mg/dL Urine Ketones Negative (Negative) mg/dL Urine Blood Large H (Negative) Urine Nitrite Positive A (Negative) Urine Bilirubin Negative (Negative) Urine Urobilinogen Normal (Normal) mg/dL Ur Leukocyte Esterase Large H (Negative) Urine Microscopic RBC TNTC H (0-3) per hpf Urine Microscopic WBC TNTC H (0-3) per hpf Ur Squamous Epith Cells Moderate H (None-Few) per lpf Urine Bacteria Few (None-Few) per hpf Hyaline Casts None Seen (None-Few) per lpf Ur Culture Indicated? (NO) Fluid Source NOT PROVIDED Fluid Volume mL Fluid Appearance (Clear) Fluid RBC (No Ref Range) M/mcL Fld Tot Nucleated Cell (No Ref Range) TNC/mcL Fluid Seg Neutrophil % % Fld Band Neutrophil % Fluid Lymphocytes % % Fluid Monocytes % Fluid Eosinophils % Fluid Basophils % Fluid Other Cells % % Chlamy pneumoniae PCR Not Detected (Not Detect) Adenovirus (PCR) Not Detected (Not Detect) B. pertussis DNA (PCR) Not Detected (Not Detect) B.parapertussis DNA PCR Not Detected (Not Detect) Coronavirus OC43 (PCR) Not Detected (Not Detect) Coronavirus HKU1 (PCR) Not Detected (Not Detect) Coronavirus 229E (PCR) Not Detected (Not Detect) Coronavirus NL63 (PCR) Not Detected (Not Detect) Human Metapneumovir PCR Not Detected (Not Detect) Influenza A (H1) PCR Not Detected (Not Detect) Influ A (H1N1/09) PCR Not Detected (Not Detect) Influenza A (H3) PCR Not Detected (Not Detect) Influenza Type A (PCR) NOT DETECTED Influenza A Untype (PCR) Not Detected (Not Detect) Influenza Type B (PCR) NOT DETECTED Not Detected (Not Detect) M.pneumoniae DNA (PCR) Not Detected (Not Detect) Parainfluenza 1 (PCR) Not Detected (Not Detect) Parainfluenza 2 (PCR) Not Detected (Not Detect) Parainfluenza 3 (PCR) Not Detected (Not Detect) Parainfluenza 4 (PCR) Not Detected (Not Detect) RSV (PCR) NOT DETECTED Not Detected (Not Detect) Entero/Rhino (PCR) Not Detected (Not Detect) Exam - Constitutional Vitals: Temp Pulse Resp BP Pulse Ox 98.1 F 91 18 97/63 90 12/22/17 09:01 12/22/17 09:01 12/22/17 09:01 12/22/17 09:01 12/22/17 09:01 General appearance: no acute distress, obese - Head Head exam: Present: atraumatic, normocephalic - Respiratory Respiratory exam: Present: rales, rhonchi, wheezes Additional comments: Course breath sounds heard throughout in all lung burgess. - Cardiovascular Cardiovascular exam: Present: RRR, +S1, +S2 - GI/Abdominal GI/Abdominal exam: Present: distended, hypoactive bowel sounds, soft. Absent: guarding Additional comments: Tenderness to palpation in the right abdominal and right flank area. - Extremities Exam Additional comments: Bilateral lower extremity below the knee amputations present. Patient is able to move both upper extremities, but is unable to use his hands. - Neurological Exam Neurological exam: Present: alert, oriented X3 - Psychiatric Psychiatric exam: Present: normal affect, normal mood Consult Discharge Plan - Plan Referrals: Joseph Pelayo MD [Primary Care Provider] - (please call upon discharge, per ocp office...) - Attending Attestation I examined this patient and my medical decision-making was reviewed with the Resident Physician. I agree with the documented findings, disposition and treatment plan as described except to the extent set forth below.
[2017-12-22] MEDS: *HR* OxyCODONE Immed Rel 15 MG TABLET PO PRN ×2 (09:27→17:15)
[2017-12-22 09:29] LABS: Basophils % 0.2 %; Eosinophils # 0.4 K/mcL (0.0-0.6); Eosinophils % 3.1 %; Hematocrit 35.1 % (37.5-50.1); Hemoglobin 10.9 g/dL (12.9-16.9); Immature Granulocytes % 0.8 % (0-4); Lymphocytes # 1.1 K/mcL (0.6-4.6); Lymphocytes % 8.2 %; Mean Corpuscular HGB Conc 31.1 g/dL (31.6-35.5); Mean Corpuscular Hemoglobin 28.7 pg (28.0-33.3); Mean Corpuscular Volume 92.4 fL (83.0-100.0); Mean Platelet Volume 8.7 fL (9.4-12.4); Monocytes # 0.5 K/mcL (0.0-1.3); Neutrophils # 10.9 K/mcL (1.6-8.9); Platelet Count 381 K/mcL (140-400); Red Cell Distribution Width 13.6 % (11.5-14.5); Segmented Neutrophils % 83.7 %
[2017-12-22 09:47] LABS: BUN/Creatinine Ratio 19 (6-26); Blood Urea Nitrogen 8 mg/dL (6-20); Calcium 8.8 mg/dL (8.6-10.3); Carbon Dioxide 32 mEq/L (23-29); Chloride 98 mEq/L (98-107); Glucose 114 mg/dL (70-105); Magnesium 1.9 mg/dL (1.6-2.6); Osmolality,Calculated 277 (280-300); Phosphorous 2.8 mg/dL (2.7-4.5); Sodium 134 mEq/L (136-145); eGFR For African Americans > 60 (> 60); eGFR For Non-African Americans > 60 (> 60)
--- NOTE | 2017-12-22 13:01 | Internal Med Progress Note ---
Date of Encounter: 12/22/17 Time of Encounter: 12:15 - Time Spent With Patient Total time spent is greater than 50% in coordination of care (as documented) at patient's floor/unit and/or counseling patient: - Subjective Interval history: Pt seen and examined with father, RN, and clinical pharmacist at bedside. POD # 3 s/p post right ureteral stent placement s/p bronchoscopy (12/21/17), reports of improvement in respiratory status. As per nursing reports, pt continues to ask for pain medications stating his current regimen is not controlling his pain, however during the time of tube puller, pt is comfortably sleeping, and as he is awaken to assess, he complains of 7/10 pain and demands narcotics. Extensive conversation was held with the patient, family, RN, and pharmacist in regards to coming up with a PO regimen for long-term pain control and avoiding any IV narcotics, given concern for respiratory depression. Pt states his MS Contin dose does not last the full 12 hours and he feels that he is in severe pain. Decision to increase the frequency of his MS Contin dose was made. Pt and family in agreement of this chage. - Assessment and plan (1) Acute hypoxemic respiratory failure Current Visit: Yes Status: Acute Assessment and plan: continue O2 supplementation Continue nebulizers. Treat pneumonia as below. pt continues to have mucus plug, s/p 2nd bronchoscopy on 12/21/17 continue pulm toileting Bipap support as needed (2) Sepsis Current Visit: Yes Status: Acute Assessment and plan: Patient met sepsis criteria with fever, tachycardia, leukocytosis and pneumonia as a source. We will treat as below. Normal lactic acid. Qualifiers: Sepsis type: sepsis due to unspecified organism Qualified Code(s): A41.9 - Sepsis, unspecified organism (3) Pneumonia Current Visit: Yes Status: Acute Assessment and plan: ID evaluation appreciated continue Vancomycin and Zosyn vanco dose adjusted as per vanc trough continue levaquin PUlm evaluation appreciated s/p first bronchoscopy on 12/16/17, second bronchoscopy on 12/21/17 awaiting microbiological and cytological interpretation; noted to have extensive secretions throughout the right tracheobronchial tree sputum culture reported Staph aureus speech therapy evaluation appreciated, diet adjusted as per their recommendations maintain aspiration precautions Qualifiers: Pneumonia type: due to other aerobic Gram-negative bacteria Laterality: right Lung location: unspecified part of lung Qualified Code(s): J15.6 - Pneumonia due to other Gram-negative bacteria (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 resumed on home meds (5) DVT prophylaxis Current Visit: No Status: Acute Assessment and plan: Heparin subcutaneous (6) Electrolyte abnormality Current Visit: No Status: Acute resolved continue to monitor electrolytes and replace as needed (7) UTI Current Visit: No Status: Acute Urine culture positive for enterococcus faecalis, continue current abx (8) Ureteral Calculi Current Visit: No Status: Acute urology evaluation appreciated POD #3 s/p post right ureteral stent placement (DOS: 12/19/17) - Constitutional Vitals: Temp Pulse Resp BP Pulse Ox 98.3 F 84 20 107/67 91 12/22/17 10:14 12/22/17 10:14 12/22/17 11:56 12/22/17 10:14 12/22/17 11:56 General appearance: Present: A&O X 3 (quadriplegic with contracted upper extremities ), no acute distress, obese - Head Head exam: Present: atraumatic, normocephalic - Eye Eye exam: Present: conjuntiva pink, sclera anicteric - Respiratory Respiratory exam: Absent: respiratory distress, wheezes (improved aeration bilaterally ) - Cardiovascular Cardiovascular exam: Present: RRR, +S1, +S2. Absent: diastolic murmur, gallop, rubs, systolic murmur - GI/Abdominal GI/Abdominal exam: Present: normal bowel sounds, soft. Absent: distended ( suprapubic catheter in place), tenderness - Extremities Exam Extremities exam: Present: warm, radial pulses palpable and symmetrical (s/p b/ l BKA) Internal Medicine: Result - Labs CBC & Chem 7: 12/22/17 08:54 12/22/17 08:54 Labs: Short CBC 12/22/17 Range/Units 08:54 WBC 13.0 H (4.3-11.1) K/mcL Hgb 10.9 L (12.9-16.9) g/dL Hct 35.1 L (37.5-50.1) % Plt Count 381 (140-400) K/mcL Neutrophils # 10.9 H (1.6-8.9) K/mcL BMP 12/21/17 12/22/17 05:35 08:54 Sodium 134 L Potassium 4.0 Chloride 98 Carbon Dioxide 31 H 32 H BUN 8 Creatinine 0.42 L Glucose 114 H Calcium 8.8 - ABG Interpretation ABG results: ABG ABG pH 7.42 pH Units (7.32-7.45) 12/21/17 09:22 ABG pCO2 61 mmHg (35-45) H 12/21/17 09:22 ABG pO2 64 mmHg (85-104) L 12/21/17 09:22 ABG O2 Saturation 92 % (95-98) L 12/21/17 09:22 PT/INR, D-dimer PT 13.6 Seconds (9.4-12.1) H 12/11/17 13:59 D-Dimer 339 ng/mLFEU (0-500) 12/11/17 13:59 Consult Discharge Plan - Plan Referrals: Joseph Pelayo MD [Primary Care Provider] - (please call upon discharge, per ocp office...)
[2017-12-22] MEDS ORDERED: *HR* OxyCODONE ER (12 HR) 10 MG TABLET PO SCH (15:00)
[2017-12-22] MEDS: traZODone 50 MG TABLET PO PRN (21:57)
[2017-12-23] MEDS: *HR* Heparin 5,000 UNIT/ML VIAL SQ SCH ×4 (00:38→21:18)
[2017-12-23] MEDS: Ipratropium/Albuterol Neb 3 ML IH SCH ×6 (04:01→23:43)
[2017-12-23 06:12] LABS: Basophils % 0.3 %; Eosinophils # 0.4 K/mcL (0.0-0.6); Hematocrit 37.8 % (37.5-50.1); Hemoglobin 11.7 g/dL (12.9-16.9); Immature Granulocytes % 0.9 % (0-4); Lymphocytes # 0.9 K/mcL (0.6-4.6); Lymphocytes % 6.1 %; Mean Corpuscular Hemoglobin 28.3 pg (28.0-33.3); Mean Corpuscular Volume 91.3 fL (83.0-100.0); Mean Platelet Volume 8.5 fL (9.4-12.4); Monocytes # 0.6 K/mcL (0.0-1.3); Monocytes % 4.2 %; Neutrophils # 11.9 K/mcL (1.6-8.9); Platelet Count 475 K/mcL (140-400); Red Blood Count 4.14 M/mcL (4.19-5.50); Red Cell Distribution Width 13.9 % (11.5-14.5); Segmented Neutrophils % 85.5 %
[2017-12-23] MEDS: Piperacillin/Tazobactam 3.375 GM in 0.9 % Sodium Chloride Mini Bag 100 ML IVPB SCH ×3 (06:38→21:17)
[2017-12-23 07:20] LABS: BUN/Creatinine Ratio 14 (6-26); Blood Urea Nitrogen 7 mg/dL (6-20); Calcium 9.1 mg/dL (8.6-10.3); Carbon Dioxide 33 mEq/L (23-29); Chloride 100 mEq/L (98-107); Glucose 113 mg/dL (70-105); Magnesium 2.1 mg/dL (1.6-2.6); Osmolality,Calculated 289 (280-300); Phosphorous 3.1 mg/dL (2.7-4.5); Potassium 3.9 mEq/L (3.5-5.1); Sodium 140 mEq/L (136-145); eGFR For African Americans > 60 (> 60); eGFR For Non-African Americans > 60 (> 60)
[2017-12-23] MEDS: Baclofen 10 MG TABLET PO SCH ×2 (09:00→21:18)
[2017-12-23] MEDS: Pregabalin 75 MG CAPSULE PO SCH (09:00)
[2017-12-23] MEDS: *HR* OxyCODONE ER (12 HR) 10 MG TABLET PO SCH ×3 (09:00→21:18)
[2017-12-23] MEDS: Sennosides/Docusate Sodium TABLET PO SCH ×2 (09:00→21:18)
--- NOTE | 2017-12-23 12:20 | Internal Med Progress Note ---
Date of Encounter: 12/23/17 Time of Encounter: 11:25 - Time Spent With Patient Total time spent is greater than 50% in coordination of care (as documented) at patient's floor/unit and/or counseling patient: - Subjective Interval history: Pt seen and examined with father, yousufa at bedside. POD #4 s/p post right ureteral stent placement s/p bronchoscopy (12/21/17) Pt appears frail and lethargic today noted to have gram stain positive for yeast species from RUL lung ID follow up requested in regards to initiation of antifungal agents - Assessment and plan (1) Acute hypoxemic respiratory failure Current Visit: Yes Status: Acute Assessment and plan: continue O2 supplementation Continue nebulizers. Treat pneumonia as below. pt continues to have mucus plug, s/p 2nd bronchoscopy on 12/21/17 continue pulm toileting Bipap support as needed (2) Sepsis Current Visit: Yes Status: Acute Assessment and plan: Patient met sepsis criteria with fever, tachycardia, leukocytosis and pneumonia as a source. We will treat as below. Normal lactic acid. Qualifiers: Sepsis type: sepsis due to unspecified organism Qualified Code(s): A41.9 - Sepsis, unspecified organism (3) Pneumonia Current Visit: Yes Status: Acute Assessment and plan: ID evaluation appreciated continue Vancomycin and Zosyn vanco dose adjusted as per vanc trough continue levaquin PUlm evaluation appreciated s/p first bronchoscopy on 18, second bronchoscopy on 12/21/17 awaiting microbiological and cytological interpretation; noted to have extensive secretions throughout the right tracheobronchial tree sputum culture reported Staph aureus speech therapy evaluation appreciated, diet adjusted as per their recommendations maintain aspiration precautions Qualifiers: Pneumonia type: due to other aerobic Gram-negative bacteria Laterality: right Lung location: unspecified part of lung Qualified Code(s): J15.6 - Pneumonia due to other Gram-negative bacteria (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 resumed on home meds (5) DVT prophylaxis Current Visit: No Status: Acute Assessment and plan: Heparin subcutaneous (6) Electrolyte abnormality Current Visit: No Status: Acute resolved continue to monitor electrolytes and replace as needed (7) UTI Current Visit: No Status: Acute Urine culture positive for enterococcus faecalis, continue current abx (8) Ureteral Calculi Current Visit: No Status: Acute urology evaluation appreciated POD #4 s/p post right ureteral stent placement (DOS: 12/19/17) - Constitutional Vitals: Temp Pulse Resp BP Pulse Ox 98.3 F 78 20 109/70 90 12/23/17 11:52 12/23/17 11:52 12/23/17 11:52 12/23/17 11:52 12/23/17 11:52 General appearance: Present: A&O X 3 (quadriplegic with contracted upper extremities ), no acute distress, obese - Head Head exam: Present: atraumatic, normocephalic - Eye Eye exam: Present: conjuntiva pink, sclera anicteric - Respiratory Respiratory exam: Absent: respiratory distress (diffuse rhonchi) - Cardiovascular Cardiovascular exam: Present: RRR, +S1, +S2. Absent: diastolic murmur, gallop, rubs, systolic murmur - GI/Abdominal GI/Abdominal exam: Present: normal bowel sounds, soft, no peritoneal signs. Absent: distended, tenderness - Extremities Exam Extremities exam: Present: warm, radial pulses palpable and symmetrical (b/l LE BKA) - Neurological Exam Neurological exam: Present: oriented X3 Internal Medicine: Result - Labs CBC & Chem 7: 12/23/17 05:37 12/23/17 05:37 Labs: Short CBC 12/23/17 Range/Units 05:37 WBC 13.9 H (4.3-11.1) K/mcL Hgb 11.7 L (12.9-16.9) g/dL Hct 37.8 (37.5-50.1) % Plt Count 475 H (140-400) K/mcL Neutrophils # 11.9 H (1.6-8.9) K/mcL BMP 12/23/17 05:37 Sodium 140 Potassium 3.9 Chloride 100 Carbon Dioxide 33 H BUN 7 Creatinine 0.50 L Glucose 113 H Calcium 9.1 - ABG Interpretation ABG results: ABG ABG pH 7.42 pH Units (7.32-7.45) 12/21/17 09:22 ABG pCO2 61 mmHg (35-45) H 12/21/17 09:22 ABG pO2 64 mmHg (85-104) L 12/21/17 09:22 ABG O2 Saturation 92 % (95-98) L 12/21/17 09:22 PT/INR, D-dimer PT 13.6 Seconds (9.4-12.1) H 12/11/17 13:59 D-Dimer 339 ng/mLFEU (0-500) 12/11/17 13:59 Consult Discharge Plan - Plan Referrals: Joseph Pelayo MD [Primary Care Provider] - (please call upon discharge, per ocp office...)
--- NOTE | 2017-12-23 14:03 | Infectious Disease Progress No ---
Date of Encounter: 12/23/17 Time of Encounter: 14:01 - Assessment and Plan (1) Sepsis Current Visit: Yes Status: Acute The patient had four SIRS criteria on admission. Likely secondary to pneumonia and UTI. The patient continues to have fevers with Tmax 100.4 overnight. Tachycardia and tachypnea have resolved. WBC remains elevated this morning. Blood cultures drawn 12/11/17 x 2, 12/13/17 x 2, and 12/14/17 x 2 are negative. Etiology of persistent fevers and worsening leukocytosis unclear: lungs vs. vs. other. Repeat blood cultures x 2 sets now. Check procalcitonin. Get CT chest with contrast. Get CT abdomen and pelvis with IV and PO contrast. Continue Vancomycin IV. Pharmacy to dose. Goal trough ~15. Vanc trough 31 this morning. Dosing discussed with Norm Travis. Continue Zosyn 3.375 grams IV Q8H. Qualifiers: Sepsis type: sepsis due to unspecified organism Qualified Code(s): A41.9 - Sepsis, unspecified organism (2) Multifocal pneumonia Current Visit: Yes Status: Acute Causative organism unclear. Location: Multifocal. Concern for aspiration and poor respiratory clearance due to the patient's quadriplegia. CXR 12/11/17 showed right perihilar and mid-lung opacities which are highly suspicious for PNA given the patient's history. Repeat CXR 12/14/17 showed progressive bilateral multifocal PNA. CTA chest 12/14/17 was negative for PE, but did show multifocal infiltrate, right greater than left and completed lower lobe atelectasis bilaterally with partial gravity dependent LUPE atelectasis and bilateral pleural effusions, right greater than left. Repeat CXR 12/20/17 showed multilobar PNA with interval development of the RUL pneumonia. Strep pneumo and Legionella UAT negative. Pulmonology consulted. Status post bronchoscopy 12/16/17 and 12/21/17. Both procedures showed mucopurulent secretions with mucous plugs in the airway, but all BAL cultures are negative for bacterial organisms. Most recent bronch on 12/21 is positive for yeast species. Discussed with Dr. Yao via phone. No indication to treat at this point. Swallow evaluation did not show any evidence of aspiration. Repeat CT of the chest with contrast. Continue Vancomycin IV. Pharmacy to dose. Goal trough ~15. Vanc trough 31 this morning. Dosing discussed with Norm Travis. Continue Zosyn 3.375 grams IV Q8H. Duration of treatment depends on the clinical picture. Monitor renal function and for drug toxicity and dose-adjust antibiotics. (3) UTI (urinary tract infection) due to urinary indwelling catheter Current Visit: No Status: Resolved Causative organism: Enterococcus species per urine culture obtained 12/16/17. Treated with Vanc and Zosyn. Repeat urine culture 12/16/17 was negative. Qualifiers: Indwelling urinary catheter type: cystostomy catheter Encounter type: initial encounter Qualified Code(s): T83.510A - Infection and inflammatory reaction due to cystostomy catheter, initial encounter; N39.0 - Urinary tract infection, site not specified; N39.0 - Urinary tract infection, site not specified (4) Acute hypoxemic respiratory failure Current Visit: Yes Status: Acute Likely secondary to multifocal pneumonia. Appears improved. Patient currently in no acute distress on O2 via NC. Continue supportive care with aggressive pulmonary toileting. Further management per the pulmonology team. (5) Mucus plugging of bronchi Current Visit: No Status: Chronic (6) Thrombocytopenia Current Visit: Yes Status: Resolved Resolved, continue to monitor. (7) Nephrolithiasis Current Visit: Yes Status: Acute 12/17/17: CT of the abdomen and pelvis showed mild right-sided hydronephrosis secondary to a stone in the [facility] Urology consulted. Status post cystoscopy with the right retrograde pyelogram and placement of a stent in the right ureter with removal of the bladder stone. Get CT of the abdomen and pelvis to evaluate for intra-abdominal process that could be contributing to the patient's fevers. 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 Continue pulmonary rehabilitation Management per primary team. - Subjective Interval history: Patient seen and examined. Patient was febrile overnight. States he feels poorly overall today, but better than overnight. Denies chills or rigors. Complains of right flank pain. Denies shortness of breath, cough, or chest pain. Denies nausea, vomiting or diarrhea. Reports large BM on Thursday. Suprapubic catheter remains patent. Denies oral thrush or new skin lesions. BAL positive for yeast species. Infect Dis PN-Objective Data - Labs CBC & Chem 7: 12/23/17 05:37 12/23/17 05:37 Labs: Laboratory Results - last 24 hr 12/23/17 12/23/17 12/23/17 05:37 05:37 05:37 WBC 13.9 H RBC 4.14 L Hgb 11.7 L Hct 37.8 MCV 91.3 MCH 28.3 MCHC 31.0 L RDW 13.9 Plt Count 475 H MPV 8.5 L Immature Gran % 0.9 Seg Neutrophils % 85.5 Lymphocytes % 6.1 Monocytes % 4.2 Eosinophils % 3.0 Basophils % 0.3 Neutrophils # 11.9 H Lymphocytes # 0.9 Monocytes # 0.6 Eosinophils # 0.4 Basophils # 0.0 Sodium 140 Potassium 3.9 Chloride 100 Carbon Dioxide 33 H BUN 7 Creatinine 0.50 L Est GFR ( Amer) > 60 Est GFR (Non-Af Amer) > 60 BUN/Creatinine Ratio 14 Glucose 113 H Calculated Osmolality 289 Calcium 9.1 Phosphorus 3.1 Magnesium 2.1 Vancomycin Trough 31 H Cultures: Cultures 12/21/17 15:51 Gram Stain - Final Right Upper Lobe Lung Respiratory Culture - Preliminary Yeast Species 12/14/17 16:30 Blood Culture - Final Peripheral Venipuncture No growth. 12/14/17 16:30 Blood Culture - Final Peripheral Venipuncture No growth. 12/17/17 18:40 Urine Culture - Final Urine,Clean Catch No growth. 12/16/17 14:50 Respiratory Culture - Final Right Middle Lobe Lung No growth. 12/13/17 14:07 Blood Culture - Final Peripheral Venipuncture No growth. 12/13/17 14:07 Blood Culture - Final Peripheral Venipuncture No growth. 12/16/17 14:50 Legionella Culture - Final Right Middle Lobe Lung 12/16/17 14:50 Acid Fast Stain - Final Right Middle Lobe Lung 12/16/17 14:50 Gram Stain - Final Right Middle Lobe Lung 12/12/17 12:45 Urine Culture - Final Urine,Clean Catch Enterococcus faecalis 12/14/17 23:15 Sputum Culture - Final Sputum 12/12/17 12:45 Legionella Antigen - Final Urine,Clean Catch Streptococcus pneumoniae Antigen (M - Final 12/11/17 19:45 Sputum Culture - Final Sputum Serology 12/21/17 12/17/17 12/16/17 Range/Units 15:51 18:19 14:50 Urine Color Dark Yellow (Yellow) Urine Clarity Cloudy A (Clear) Urine pH 6.5 (5.0-8.0) pH Units Ur Specific [place] 1.020 (1.010-1.025) Urine Protein 30 H (Neg-Trace) mg/dL Urine Glucose (UA) Normal (Normal) mg/dL Urine Ketones Negative (Negative) mg/dL Urine Blood Moderate H (Negative) Urine Nitrite Negative (Negative) Urine Bilirubin Negative (Negative) Urine Urobilinogen Normal (Normal) mg/dL Ur Leukocyte Esterase Moderate H (Negative) Urine Microscopic RBC 50-100 H (0-3) per hpf Urine Microscopic WBC 30-50 H (0-3) per hpf Ur Squamous Epith Cells Many H (None-Few) per lpf Urine Bacteria Few (None-Few) per hpf Hyaline Casts Few (None-Few) per lpf Ur Culture Indicated? NO. (NO) Fluid Source rul bal right middle lobe BA Fluid Volume 15 19 mL Fluid Appearance Hazy A Cloudy A (Clear) Fluid RBC TNP 0.002 (No Ref Range) M/mcL Fld Tot Nucleated Cell TNP 1301 (No Ref Range) TNC/mcL Fluid Seg Neutrophil % 99.0 93.2 % Fld Band Neutrophil % TNP Fluid Lymphocytes % 1.0 2.3 % Fluid Monocytes % TNP Fluid Eosinophils % TNP Fluid Basophils % TNP Fluid Other Cells % 4.5 % Chlamy pneumoniae PCR (Not Detect) Adenovirus (PCR) (Not Detect) B. pertussis DNA (PCR) (Not Detect) B.parapertussis DNA PCR (Not Detect) Coronavirus OC43 (PCR) (Not Detect) Coronavirus HKU1 (PCR) (Not Detect) Coronavirus 229E (PCR) (Not Detect) Coronavirus NL63 (PCR) (Not Detect) Human Metapneumovir PCR (Not Detect) Influenza A (H1) PCR (Not Detect) Influ A (H1N1/09) PCR (Not Detect) Influenza A (H3) PCR (Not Detect) Influenza Type A (PCR) Influenza A Untype (PCR) (Not Detect) Influenza Type B (PCR) (Not Detect) M.pneumoniae DNA (PCR) (Not Detect) Parainfluenza 1 (PCR) (Not Detect) Parainfluenza 2 (PCR) (Not Detect) Parainfluenza 3 (PCR) (Not Detect) Parainfluenza 4 (PCR) (Not Detect) RSV (PCR) (Not Detect) Entero/Rhino (PCR) (Not Detect) 12/16/17 12/14/17 12/12/17 Range/Units 14:50 17:19 12:45 Urine Color Dark Yellow (Yellow) Urine Clarity Turbid A (Clear) Urine pH 7.0 (5.0-8.0) pH Units Ur Specific [place] 1.016 (1.010-1.025) Urine Protein 30 H (Neg-Trace) mg/dL Urine Glucose (UA) Normal (Normal) mg/dL Urine Ketones Negative (Negative) mg/dL Urine Blood Large H (Negative) Urine Nitrite Positive A (Negative) Urine Bilirubin Negative (Negative) Urine Urobilinogen Normal (Normal) mg/dL Ur Leukocyte Esterase Large H (Negative) Urine Microscopic RBC TNTC H (0-3) per hpf Urine Microscopic WBC TNTC H (0-3) per hpf Ur Squamous Epith Cells Moderate H (None-Few) per lpf Urine Bacteria Few (None-Few) per hpf Hyaline Casts None Seen (None-Few) per lpf Ur Culture Indicated? (NO) Fluid Source NOT PROVIDED Fluid Volume mL Fluid Appearance (Clear) Fluid RBC (No Ref Range) M/mcL Fld Tot Nucleated Cell (No Ref Range) TNC/mcL Fluid Seg Neutrophil % % Fld Band Neutrophil % Fluid Lymphocytes % % Fluid Monocytes % Fluid Eosinophils % Fluid Basophils % Fluid Other Cells % % Chlamy pneumoniae PCR Not Detected (Not Detect) Adenovirus (PCR) Not Detected (Not Detect) B. pertussis DNA (PCR) Not Detected (Not Detect) B.parapertussis DNA PCR Not Detected (Not Detect) Coronavirus OC43 (PCR) Not Detected (Not Detect) Coronavirus HKU1 (PCR) Not Detected (Not Detect) Coronavirus 229E (PCR) Not Detected (Not Detect) Coronavirus NL63 (PCR) Not Detected (Not Detect) Human Metapneumovir PCR Not Detected (Not Detect) Influenza A (H1) PCR Not Detected (Not Detect) Influ A (H1N1/09) PCR Not Detected (Not Detect) Influenza A (H3) PCR Not Detected (Not Detect) Influenza Type A (PCR) NOT DETECTED Influenza A Untype (PCR) Not Detected (Not Detect) Influenza Type B (PCR) NOT DETECTED Not Detected (Not Detect) M.pneumoniae DNA (PCR) Not Detected (Not Detect) Parainfluenza 1 (PCR) Not Detected (Not Detect) Parainfluenza 2 (PCR) Not Detected (Not Detect) Parainfluenza 3 (PCR) Not Detected (Not Detect) Parainfluenza 4 (PCR) Not Detected (Not Detect) RSV (PCR) NOT DETECTED Not Detected (Not Detect) Entero/Rhino (PCR) Not Detected (Not Detect) Exam - Constitutional Vitals: Temp Pulse Resp BP Pulse Ox 98.3 F 78 20 109/70 90 12/23/17 11:52 12/23/17 11:52 12/23/17 11:52 12/23/17 11:52 12/23/17 11:52 General appearance: average body habitus, cooperative, no acute distress - Head Head exam: Present: atraumatic, normal inspection, normocephalic - Eye Eye exam: Present: EOMI. Absent: normal appearance, PERRL (Right pupil 5mm, left pupil 3mm) - ENT ENT exam: Present: mucous membranes moist - Neck Neck exam: Present: normal inspection - Respiratory Respiratory exam: Present: rhonchi (Throughout). Absent: respiratory distress, tachypnea - Cardiovascular Cardiovascular exam: Present: +S1, +S2, tachycardia - GI/Abdominal GI/Abdominal exam: Present: distended, normal bowel sounds, soft, tenderness ( Generalized) Additional comments: Suprapubic catheter noted to be draining dark yellow urine. - Extremities Exam Additional comments: Bilateral stumps without redness, warmth, or open sores. - Neurological Exam Neurological exam: Present: alert, oriented X3. Absent: no focal deficits ( Paralysis noted to the BLE) - Skin Skin exam: Present: dry, intact, normal color, warm Consult Discharge Plan - Plan Referrals: Joseph Pelayo MD [Primary Care Provider] - (please call upon discharge, per ocp office...)
--- NOTE | 2017-12-23 22:25 | Event Note ---
Date of Encounter: 12/23/17 Time of Encounter: 22:05 Alerted by pts. nurse that pt. and his mother were wanting to know about results from the CTA of the chest and CT of the abdomen/pelvis done today. Went to see pt. and his mother to explain results. CTA of the chest is concerning for increasing bilateral consolidation in the lungs, worse on the right as well as fat stranding on the right suggesting pyelitis/pyelonephritis. Additional concern for increasing WBC from 11.0 on 12/20 to 13.9 today. Discussed current antibiotics (vancomycin and Zosyn) with patient and explained plan to add IVPB Levaquin 750 mg daily for added pneumonia coverage as well as coverage for pyelonephritis. Also discussed current chest percussion therapy with breathing treatments and their continuation. Pts. mother concerned about low urinary output in catheter following CT imaging. Order for bladder scans PRN to assess for urinary retention/residual in bladder. Pt. and mother in agreement with plan of care changes and expressed understanding and support. Pt., output, and f /u labs to be monitored closely.
[2017-12-23] MEDS: Levofloxacin 750 MG/150 ML 750 MG/150 ML BAG IVPB SCH (23:22)
[2017-12-24] MEDS: traZODone 50 MG TABLET PO PRN ×2 (01:53→23:51)
[2017-12-24] MEDS: diazePAM 10 MG TABLET PO PRN ×2 (01:54→23:51)
[2017-12-24] MEDS: Ipratropium/Albuterol Neb 3 ML IH SCH ×6 (04:41→23:45)
[2017-12-24 05:31] LABS: Basophils # 0.1 K/mcL (0.0-0.2); Basophils % 0.4 %; Eosinophils # 0.4 K/mcL (0.0-0.6); Eosinophils % 3.1 %; Hematocrit 35.4 % (37.5-50.1); Hemoglobin 11.2 g/dL (12.9-16.9); Immature Granulocytes % 1.2 % (0-4); Lymphocytes # 1.1 K/mcL (0.6-4.6); Mean Corpuscular HGB Conc 31.6 g/dL (31.6-35.5); Mean Corpuscular Hemoglobin 28.9 pg (28.0-33.3); Mean Corpuscular Volume 91.2 fL (83.0-100.0); Mean Platelet Volume 8.6 fL (9.4-12.4); Monocytes # 0.6 K/mcL (0.0-1.3); Monocytes % 4.7 %; Neutrophils # 11.1 K/mcL (1.6-8.9); Platelet Count 485 K/mcL (140-400); Red Blood Count 3.88 M/mcL (4.19-5.50); Red Cell Distribution Width 13.6 % (11.5-14.5); Segmented Neutrophils % 82.6 %
[2017-12-24] MEDS: *HR* Heparin 5,000 UNIT/ML VIAL SQ SCH ×3 (05:38→21:01)
[2017-12-24] MEDS: Piperacillin/Tazobactam 3.375 GM in 0.9 % Sodium Chloride Mini Bag 100 ML IVPB SCH ×3 (05:38→22:30)
[2017-12-24 05:47] LABS: BUN/Creatinine Ratio 14 (6-26); Blood Urea Nitrogen 6 mg/dL (6-20); Calcium 8.9 mg/dL (8.6-10.3); Carbon Dioxide 30 mEq/L (23-29); Chloride 99 mEq/L (98-107); Glucose 104 mg/dL (70-105); Magnesium 1.9 mg/dL (1.6-2.6); Osmolality,Calculated 280 (280-300); Phosphorous 3.2 mg/dL (2.7-4.5); Sodium 136 mEq/L (136-145); eGFR For African Americans > 60 (> 60); eGFR For Non-African Americans > 60 (> 60)
[2017-12-24] MEDS: Sennosides/Docusate Sodium TABLET PO SCH ×2 (10:28→20:59)
[2017-12-24] MEDS: Baclofen 10 MG TABLET PO SCH ×2 (10:28→20:59)
[2017-12-24] MEDS: *HR* OxyCODONE ER (12 HR) 10 MG TABLET PO SCH ×3 (10:28→20:59)
[2017-12-24] MEDS: Pregabalin 75 MG CAPSULE PO SCH (10:28)
[2017-12-24] MEDS: Levofloxacin 750 MG/150 ML 750 MG/150 ML BAG IVPB SCH (11:01)
[2017-12-24] MEDS: Acetylcysteine 10% 2 ML INHSOL IH SCH ×5 (11:08→23:45)
[2017-12-24] MEDS ORDERED: *HR* Midazolam HCl 5 MG/5 ML VIAL IVP ONE (11:25)
[2017-12-24] MEDS ORDERED: Lidocaine Viscous Oral Soln 15 ML SOLUTION ONE (11:25)
[2017-12-24] MEDS ORDERED: *HR* FentaNYL (PF) 100 MCG/2 ML VIAL ONE (11:25)
[2017-12-24] MEDS ORDERED: Acetylcysteine 10% 2 ML INHSOL IH ONE (12:24)
--- NOTE | 2017-12-24 12:43 | Infectious Disease Progress No ---
Date of Encounter: 12/24/17 Time of Encounter: 12:41 - Assessment and Plan (1) Sepsis Current Visit: Yes Status: Acute The patient had four SIRS criteria on admission. Likely secondary to pneumonia and UTI. The patient continues to have fevers with Tmax 100.0 overnight. Tachycardia and tachypnea have resolved. WBC remains elevated this morning. Blood cultures drawn 12/11/17 x 2, 12/13/17 x 2, and 12/14/17 x 2 are negative. Etiology of persistent fevers and worsening leukocytosis unclear: lungs vs. vs. other. Repeat blood cultures x 2 sets drawn 12/23/17 are pending. Check procalcitonin.--> pending. CT chest shows persistent/worsening infiltrates. CT abdomen/pelvis shows possible pyelitis/pyelonephritis. Continue Vancomycin IV. Pharmacy to dose. Goal trough ~15. Vanc trough 31. Dosing discussed with Norm Travis. Continue Zosyn 3.375 grams IV Q8H. Levaquin added by the hospitalist team overnight. Given the patient's complex clinical picture and persistent fevers/leukocytosis , recommend transfer to tertiary care center with full ID staff/support since Dr. Yao is out of town until Thursday. Discussed with Dr. Hodge. Qualifiers: Sepsis type: sepsis due to unspecified organism Qualified Code(s): A41.9 - Sepsis, unspecified organism (2) Multifocal pneumonia Current Visit: Yes Status: Acute Causative organism unclear. Location: Multifocal. Concern for aspiration and poor respiratory clearance due to the patient's quadriplegia. CXR 12/11/17 showed right perihilar and mid-lung opacities which are highly suspicious for PNA given the patient's history. Repeat CXR 12/14/17 showed progressive bilateral multifocal PNA. CTA chest 12/14/17 was negative for PE, but did show multifocal infiltrate, right greater than left and completed lower lobe atelectasis bilaterally with partial gravity dependent LUPE atelectasis and bilateral pleural effusions, right greater than left. Repeat CXR 12/20/17 showed multilobar PNA with interval development of the RUL pneumonia. Strep pneumo and Legionella UAT negative. Pulmonology consulted. Status post bronchoscopy 12/16/17 and 12/21/17. Both procedures showed mucopurulent secretions with mucous plugs in the airway, but all BAL cultures are negative for bacterial organisms. Most recent bronch on 12/21 is positive for yeast species. Discussed with Dr. Yao via phone. No indication to treat at this point. Swallow evaluation did not show any evidence of aspiration. Repeat CT of the chest with contrast 12/23/17 showed increasing consolidation within the upper lungs bilaterally, especially on the right and continued complete lobar collapse of the lower lobes with secretions within the airways. Recommend pulmonology to re-evaluate. The patient may benefit from repeat bronchoscopy. Continue Vancomycin IV. Pharmacy to dose. Goal trough ~15. Vanc trough 31. Dosing discussed with Norm Travis. Continue Zosyn 3.375 grams IV Q8H. Levaquin added by the primary team. Continue for now, although I am not sure that it is providing anything that will improve the patient's clinical picture. Duration of treatment depends on the clinical picture. Monitor renal function and for drug toxicity and dose-adjust antibiotics. (3) UTI (urinary tract infection) due to urinary indwelling catheter Current Visit: No Status: Acute Causative organism: Enterococcus species per urine culture obtained 12/16/17. Treated with Vanc and Zosyn. Repeat urine culture 12/16/[address] of the abdomen and pelvis 12/23/17 showed perinephric stranding and periureteral stranding on the right suggestive of pyelitis/pyelonephritis without hydro. Recommend requesting urology to re-evaluate. Continue antibiotics as above. Qualifiers: Indwelling urinary catheter type: cystostomy catheter Encounter type: initial encounter Qualified Code(s): T83.510A - Infection and inflammatory reaction due to cystostomy catheter, initial encounter; N39.0 - Urinary tract infection, site not specified; N39.0 - Urinary tract infection, site not specified (4) Acute hypoxemic respiratory failure Current Visit: Yes Status: Acute Likely secondary to multifocal pneumonia. Appears improved. Patient currently in no acute distress on O2 via NC. Continue supportive care with aggressive pulmonary toileting. Further management per the pulmonology team. (5) Mucus plugging of bronchi Current Visit: No Status: Chronic (6) Thrombocytopenia Current Visit: Yes Status: Resolved Resolved, continue to monitor. (7) Nephrolithiasis Current Visit: Yes Status: Acute 12/17/17: CT of the abdomen and pelvis showed mild right-sided hydronephrosis secondary to a stone in the UPJ Urology consulted. Status post cystoscopy with the right retrograde pyelogram and placement of a stent in the right ureter with removal of the bladder stone. Get CT of the abdomen and pelvis to evaluate for intra-abdominal process that could be contributing to the patient's fevers. 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 Continue pulmonary rehabilitation Management per primary team. - Subjective Interval history: Patient seen and examined. Patient had low-grade fever overnight with Tmax 100. States he feels okay today. Denies chills or rigors. Complains of right flank pain. Denies shortness of breath or chest pain. Weak, moist cough noted during exam. Denies nausea, vomiting or diarrhea. Reports large BM on Thursday. Suprapubic catheter remains patent, but leaking. Denies oral thrush or new skin lesions. BAL positive for yeast species. CT scan results noted. Infect Dis PN-Objective Data - Labs CBC & Chem 7: 12/24/17 04:30 12/24/17 04:00 Labs: Laboratory Results - last 24 hr 12/24/17 12/24/17 04:00 04:30 WBC 13.4 H RBC 3.88 L Hgb 11.2 L Hct 35.4 L MCV 91.2 MCH 28.9 MCHC 31.6 RDW 13.6 Plt Count 485 H MPV 8.6 L Immature Gran % 1.2 Seg Neutrophils % 82.6 Lymphocytes % 8.0 Monocytes % 4.7 Eosinophils % 3.1 Basophils % 0.4 Neutrophils # 11.1 H Lymphocytes # 1.1 Monocytes # 0.6 Eosinophils # 0.4 Basophils # 0.1 Sodium 136 Potassium 4.0 Chloride 99 Carbon Dioxide 30 H BUN 6 Creatinine 0.44 L Est GFR ( Amer) > 60 Est GFR (Non-Af Amer) > 60 BUN/Creatinine Ratio 14 Glucose 104 Calculated Osmolality 280 Calcium 8.9 Phosphorus 3.2 Magnesium 1.9 Cultures: Cultures 12/21/17 15:51 Gram Stain - Final Right Upper Lobe Lung Respiratory Culture - Preliminary Yeast Species 12/14/17 16:30 Blood Culture - Final Peripheral Venipuncture No growth. 12/14/17 16:30 Blood Culture - Final Peripheral Venipuncture No growth. 12/17/17 18:40 Urine Culture - Final Urine,Clean Catch No growth. 12/16/17 14:50 Respiratory Culture - Final Right Middle Lobe Lung No growth. 12/13/17 14:07 Blood Culture - Final Peripheral Venipuncture No growth. 12/13/17 14:07 Blood Culture - Final Peripheral Venipuncture No growth. 12/16/17 14:50 Legionella Culture - Final Right Middle Lobe Lung 12/16/17 14:50 Acid Fast Stain - Final Right Middle Lobe Lung 12/16/17 14:50 Gram Stain - Final Right Middle Lobe Lung 12/12/17 12:45 Urine Culture - Final Urine,Clean Catch Enterococcus faecalis 12/14/17 23:15 Sputum Culture - Final Sputum 12/12/17 12:45 Legionella Antigen - Final Urine,Clean Catch Streptococcus pneumoniae Antigen (M - Final 12/11/17 19:45 Sputum Culture - Final Sputum Serology 12/21/17 12/17/17 12/16/17 Range/Units 15:51 18:19 14:50 Urine Color Dark Yellow (Yellow) Urine Clarity Cloudy A (Clear) Urine pH 6.5 (5.0-8.0) pH Units Ur Specific [place] 1.020 (1.010-1.025) Urine Protein 30 H (Neg-Trace) mg/dL Urine Glucose (UA) Normal (Normal) mg/dL Urine Ketones Negative (Negative) mg/dL Urine Blood Moderate H (Negative) Urine Nitrite Negative (Negative) Urine Bilirubin Negative (Negative) Urine Urobilinogen Normal (Normal) mg/dL Ur Leukocyte Esterase Moderate H (Negative) Urine Microscopic RBC 50-100 H (0-3) per hpf Urine Microscopic WBC 30-50 H (0-3) per hpf Ur Squamous Epith Cells Many H (None-Few) per lpf Urine Bacteria Few (None-Few) per hpf Hyaline Casts Few (None-Few) per lpf Ur Culture Indicated? NO. (NO) Fluid Source rul bal right middle lobe BA Fluid Volume 15 19 mL Fluid Appearance Hazy A Cloudy A (Clear) Fluid RBC TNP 0.002 (No Ref Range) M/mcL Fld Tot Nucleated Cell TNP 1301 (No Ref Range) TNC/mcL Fluid Seg Neutrophil % 99.0 93.2 % Fld Band Neutrophil % TNP Fluid Lymphocytes % 1.0 2.3 % Fluid Monocytes % TNP Fluid Eosinophils % TNP Fluid Basophils % TNP Fluid Other Cells % 4.5 % Chlamy pneumoniae PCR (Not Detect) Adenovirus (PCR) (Not Detect) B. pertussis DNA (PCR) (Not Detect) B.parapertussis DNA PCR (Not Detect) Coronavirus OC43 (PCR) (Not Detect) Coronavirus HKU1 (PCR) (Not Detect) Coronavirus 229E (PCR) (Not Detect) Coronavirus NL63 (PCR) (Not Detect) Human Metapneumovir PCR (Not Detect) Influenza A (H1) PCR (Not Detect) Influ A (H1N1/09) PCR (Not Detect) Influenza A (H3) PCR (Not Detect) Influenza Type A (PCR) Influenza A Untype (PCR) (Not Detect) Influenza Type B (PCR) (Not Detect) M.pneumoniae DNA (PCR) (Not Detect) Parainfluenza 1 (PCR) (Not Detect) Parainfluenza 2 (PCR) (Not Detect) Parainfluenza 3 (PCR) (Not Detect) Parainfluenza 4 (PCR) (Not Detect) RSV (PCR) (Not Detect) Entero/Rhino (PCR) (Not Detect) 12/16/17 12/14/17 12/12/17 Range/Units 14:50 17:19 12:45 Urine Color Dark Yellow (Yellow) Urine Clarity Turbid A (Clear) Urine pH 7.0 (5.0-8.0) pH Units Ur Specific [place] 1.016 (1.010-1.025) Urine Protein 30 H (Neg-Trace) mg/dL Urine Glucose (UA) Normal (Normal) mg/dL Urine Ketones Negative (Negative) mg/dL Urine Blood Large H (Negative) Urine Nitrite Positive A (Negative) Urine Bilirubin Negative (Negative) Urine Urobilinogen Normal (Normal) mg/dL Ur Leukocyte Esterase Large H (Negative) Urine Microscopic RBC TNTC H (0-3) per hpf Urine Microscopic WBC TNTC H (0-3) per hpf Ur Squamous Epith Cells Moderate H (None-Few) per lpf Urine Bacteria Few (None-Few) per hpf Hyaline Casts None Seen (None-Few) per lpf Ur Culture Indicated? (NO) Fluid Source NOT PROVIDED Fluid Volume mL Fluid Appearance (Clear) Fluid RBC (No Ref Range) M/mcL Fld Tot Nucleated Cell (No Ref Range) TNC/mcL Fluid Seg Neutrophil % % Fld Band Neutrophil % Fluid Lymphocytes % % Fluid Monocytes % Fluid Eosinophils % Fluid Basophils % Fluid Other Cells % % Chlamy pneumoniae PCR Not Detected (Not Detect) Adenovirus (PCR) Not Detected (Not Detect) B. pertussis DNA (PCR) Not Detected (Not Detect) B.parapertussis DNA PCR Not Detected (Not Detect) Coronavirus OC43 (PCR) Not Detected (Not Detect) Coronavirus HKU1 (PCR) Not Detected (Not Detect) Coronavirus 229E (PCR) Not Detected (Not Detect) Coronavirus NL63 (PCR) Not Detected (Not Detect) Human Metapneumovir PCR Not Detected (Not Detect) Influenza A (H1) PCR Not Detected (Not Detect) Influ A (H1N1/09) PCR Not Detected (Not Detect) Influenza A (H3) PCR Not Detected (Not Detect) Influenza Type A (PCR) NOT DETECTED Influenza A Untype (PCR) Not Detected (Not Detect) Influenza Type B (PCR) NOT DETECTED Not Detected (Not Detect) M.pneumoniae DNA (PCR) Not Detected (Not Detect) Parainfluenza 1 (PCR) Not Detected (Not Detect) Parainfluenza 2 (PCR) Not Detected (Not Detect) Parainfluenza 3 (PCR) Not Detected (Not Detect) Parainfluenza 4 (PCR) Not Detected (Not Detect) RSV (PCR) NOT DETECTED Not Detected (Not Detect) Entero/Rhino (PCR) Not Detected (Not Detect) - Impressions Impressions Abdomen/Pelvis CT 12/23/17 18:00 IMPRESSION: 1. Increasing consolidation within the upper lungs bilaterally, especially on the right. 2. Continued complete lobar collapse of the lower lobes. Secretions within airways are re- demonstrated. 3. No pulmonary embolism is detected. No aortic dissection. 4. Mediastinal lymphadenopathy, which is presumably reactive. 5. Perinephric and periureteral fat stranding on the right suggesting pyelitis/pyelonephritis. An indwelling ureteral stent is in place. No hydronephrosis or hydroureter is seen on today's exam. 6. Re- demonstration of a calculus at the right ureteropelvic junction which appears similar in location and size. D/ / Sabino Zamarripa MD / Sabino Zamarripa MD Interpreting Provider: Sabino Zamarripa MD Chest CTA 12/23/17 18:00 IMPRESSION: 1. Increasing consolidation within the upper lungs bilaterally, especially on the right. 2. Continued complete lobar collapse of the lower lobes. Secretions within airways are re- demonstrated. 3. No pulmonary embolism is detected. No aortic dissection. 4. Mediastinal lymphadenopathy, which is presumably reactive. 5. Perinephric and periureteral fat stranding on the right suggesting pyelitis/pyelonephritis. An indwelling ureteral stent is in place. No hydronephrosis or hydroureter is seen on today's exam. 6. Re- demonstration of a calculus at the right ureteropelvic junction which appears similar in location and size. D/ / Sabino Zamarripa MD / Sabino Zamarripa MD Interpreting Provider: Sabino Zamarripa MD Exam - Constitutional Vitals: Temp Pulse Resp BP Pulse Ox 98.0 F 85 18 98/52 94 12/24/17 11:43 12/24/17 12:25 12/24/17 12:25 12/24/17 12:25 12/24/17 12:25 General appearance: average body habitus, cooperative, no acute distress - Head Head exam: Present: atraumatic, normal inspection, normocephalic - Eye Eye exam: Present: EOMI, normal appearance, PERRL Pupils: Present: normal accommodation - ENT ENT exam: Present: mucous membranes moist - Neck Neck exam: Present: normal inspection - Respiratory Respiratory exam: Present: rales (throughout), rhonchi (throughout). Absent: respiratory distress, wheezes, tachypnea - Cardiovascular Cardiovascular exam: Present: RRR, +S1, +S2 - GI/Abdominal GI/Abdominal exam: Present: normal bowel sounds, soft. Absent: distended, tenderness Additional comments: Suprapubic catheter noted to be draining clear yellow urine. Urine leakage noted around catheter. - Extremities Exam Additional comments: Bilateral BKA stumps without redness, warmth, or erythema. Contractures noted to the BUE. - Neurological Exam Neurological exam: Present: alert, oriented X3. Absent: no focal deficits ( Paralysis noted to the BLE.) - Psychiatric Psychiatric exam: Present: normal affect, normal mood - Skin Skin exam: Present: dry, intact, normal color, warm Consult Discharge Plan - Plan Referrals: Joseph Pelayo MD [Primary Care Provider] - (please call upon discharge, per ocp office...)
--- NOTE | 2017-12-24 12:54 | Internal Med Progress Note ---
Date of Encounter: 12/24/17 Time of Encounter: 10:29 - Time Spent With Patient Total time spent is greater than 50% in coordination of care (as documented) at patient's floor/unit and/or counseling patient: - Subjective Interval history: Pt seen and examined with father present at bedside. Pt continues to have worsening respiratory status. repeat CT chest reported of worsening mucus plugs. Dr. Valdes and I had a detailed discussion with the patient and father about patient's current condition. Dr. Valdes recommended tracheostomy for the assisted management for supportive care given the recurrent mucus plugging that needs deep suctioning for clearance, as pt is not able to clear the secretions on his own; and in the short term repeat the bronchoscopy later today. Father and patient in agreement for the bronchoscopy today and will think about the tracheostomy. I called Dr. Kenny as well in regards to patient's suprapubic catheter and UPJ stone. Dr. Kenny to evaluate the patient later today. ID on board and is recommending transfer to a different facility for higher level of care. Patient and father were informed that they can be transferred to another facility for higher level of care. Pt and family requests some time and will make a decision in am (12/25/17) - Assessment and plan (1) Acute hypoxemic respiratory failure Current Visit: Yes Status: Acute Assessment and plan: continue O2 supplementation Continue nebulizers. Treat pneumonia as below. pt continues to have mucus plug, s/p 2nd bronchoscopy on 12/21/17 continue pulm toileting Bipap support as needed (2) Sepsis Current Visit: Yes Status: Acute Assessment and plan: Patient met sepsis criteria with fever, tachycardia, leukocytosis and pneumonia as a source. We will treat as below. Normal lactic acid. Qualifiers: Sepsis type: sepsis due to unspecified organism Qualified Code(s): A41.9 - Sepsis, unspecified organism (3) Pneumonia Current Visit: Yes Status: Acute Assessment and plan: ID evaluation appreciated continue Vancomycin and Zosyn vanco dose adjusted as per vanc trough continue levaquin PUlm evaluation appreciated s/p first bronchoscopy on 12/16/17, second bronchoscopy on 12/21/17 awaiting microbiological and cytological interpretation; noted to have extensive secretions throughout the right tracheobronchial tree sputum culture reported Staph aureus speech therapy evaluation appreciated, diet adjusted as per their recommendations maintain aspiration precautions pt to undergo repeat bronchoscopy today (12/24/17), pulmonary evaluation appreciated Qualifiers: Pneumonia type: due to other aerobic Gram-negative bacteria Laterality: right Lung location: unspecified part of lung Qualified Code(s): J15.6 - Pneumonia due to other Gram-negative bacteria (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 resumed on home meds (5) DVT prophylaxis Current Visit: No Status: Acute Assessment and plan: Heparin subcutaneous (6) Electrolyte abnormality Current Visit: No Status: Acute resolved continue to monitor electrolytes and replace as needed (7) UTI Current Visit: No Status: Acute Urine culture positive for enterococcus faecalis, continue current abx (8) Ureteral Calculi Current Visit: No Status: Acute urology follow up requested POD #5 s/p post right ureteral stent placement (DOS: 12/19/17) - Constitutional Vitals: Temp Pulse Resp BP Pulse Ox 98.0 F 85 18 98/52 94 12/24/17 11:43 12/24/17 12:25 12/24/17 12:25 12/24/17 12:25 12/24/17 12:25 General appearance: Present: A&O X 3 (quadriplegic with contracted upper extremities ), no acute distress, obese - Head Head exam: Present: atraumatic, normocephalic - Eye Eye exam: Present: conjuntiva pink, sclera anicteric - Respiratory Respiratory exam: Absent: wheezes (diffuse rhonchi) - Cardiovascular Cardiovascular exam: Present: RRR, +S1, +S2. Absent: diastolic murmur, gallop, rubs, systolic murmur - GI/Abdominal GI/Abdominal exam: Present: normal bowel sounds, soft, no peritoneal signs. Absent: distended, tenderness - Extremities Exam Extremities exam: Present: tenderness, warm, radial pulses palpable and symmetrical Additional comments: bilateral BKA - Neurological Exam Neurological exam: Present: oriented X3 Internal Medicine: Result - Labs CBC & Chem 7: 12/24/17 04:30 12/24/17 04:00 Labs: Short CBC 12/24/17 Range/Units 04:30 WBC 13.4 H (4.3-11.1) K/mcL Hgb 11.2 L (12.9-16.9) g/dL Hct 35.4 L (37.5-50.1) % Plt Count 485 H (140-400) K/mcL Neutrophils # 11.1 H (1.6-8.9) K/mcL BMP 12/24/17 04:00 Sodium 136 Potassium 4.0 Chloride 99 Carbon Dioxide 30 H BUN 6 Creatinine 0.44 L Glucose 104 Calcium 8.9 - ABG Interpretation ABG results: ABG ABG pH 7.42 pH Units (7.32-7.45) 12/21/17 09:22 ABG pCO2 61 mmHg (35-45) H 12/21/17 09:22 ABG pO2 64 mmHg (85-104) L 12/21/17 09:22 ABG O2 Saturation 92 % (95-98) L 12/21/17 09:22 PT/INR, D-dimer PT 13.6 Seconds (9.4-12.1) H 12/11/17 13:59 D-Dimer 339 ng/mLFEU (0-500) 12/11/17 13:59 - Impressions Impressions Abdomen/Pelvis CT 12/23/17 18:00 IMPRESSION: 1. Increasing consolidation within the upper lungs bilaterally, especially on the right. 2. Continued complete lobar collapse of the lower lobes. Secretions within airways are re- demonstrated. 3. No pulmonary embolism is detected. No aortic dissection. 4. Mediastinal lymphadenopathy, which is presumably reactive. 5. Perinephric and periureteral fat stranding on the right suggesting pyelitis/pyelonephritis. An indwelling ureteral stent is in place. No hydronephrosis or hydroureter is seen on today's exam. 6. Re- demonstration of a calculus at the right ureteropelvic junction which appears similar in location and size. D/ / Sabino Zamarripa MD / Sabino Zamarripa MD Interpreting Provider: Sabino Zamarripa MD Chest CTA 12/23/17 18:00 IMPRESSION: 1. Increasing consolidation within the upper lungs bilaterally, especially on the right. 2. Continued complete lobar collapse of the lower lobes. Secretions within airways are re- demonstrated. 3. No pulmonary embolism is detected. No aortic dissection. 4. Mediastinal lymphadenopathy, which is presumably reactive. 5. Perinephric and periureteral fat stranding on the right suggesting pyelitis/pyelonephritis. An indwelling ureteral stent is in place. No hydronephrosis or hydroureter is seen on today's exam. 6. Re- demonstration of a calculus at the right ureteropelvic junction which appears similar in location and size. D/ / Sabino Zamarripa MD / Sabino Zamarripa MD Interpreting Provider: Sabino Zamarripa MD Consult Discharge Plan - Plan Referrals: Joseph Pelayo MD [Primary Care Provider] - (please call upon discharge, per ocp office...)
--- NOTE | 2017-12-24 15:47 | Urology Progress Note ---
Date of Encounter: 12/24/17 Time of Encounter: 15:44 - Assessment and Plan (1) Nephrolithiasis Current Visit: Yes Status: Acute Assessment and plan: POD #5 s/p right ureteral stent placement. CT reviewed and stent is in good position. No hydronephrosis noted. Stone seen alongside the stent. Will consider right ureteroscopy as an outpatient once pulmonary standpoint improves. (2) Sepsis Current Visit: Yes Status: Acute Qualifiers: Sepsis type: sepsis due to unspecified organism Qualified Code(s): A41.9 - Sepsis, unspecified organism (3) UTI (urinary tract infection) Current Visit: No Status: Acute Qualifiers: Urinary tract infection type: catheter-associated UTI Indwelling urinary catheter type: cystostomy catheter Encounter type: subsequent encounter Qualified Code(s): T83.510D - Infection and inflammatory reaction due to cystostomy catheter, subsequent encounter; N39.0 - Urinary tract infection, site not specified; N39.0 - Urinary tract infection, site not specified Progress Note Narrative: Postop day #5 status post right ureteral stent placement. He is still having fevers. RN has noted some leakage around SP tube site. Plans have been made for transfer as he has persistent fevers despite antibiotic treatment. Objective Initial Vital Signs Temp Pulse Resp BP Pulse Ox 103.1 F H 100 22 134/83 89 12/11/17 13:56 12/11/17 13:56 12/11/17 13:56 12/11/17 13:56 12/11/17 13:56 - General physical appearance Present: no distress - Genitourinary Present: other (SP tube with clear to light peach urine.) - Labs 12/24/17 04:30 12/24/17 04:00 Diabetes panel 12/24/17 Range/Units 04:00 Sodium 136 (136-145) mEq/L Potassium 4.0 (3.5-5.1) mEq/L Chloride 99 (98-107) mEq/L Carbon Dioxide 30 H (23-29) mEq/L BUN 6 (6-20) mg/dL Creatinine 0.44 L (0.70-1.30) mg/dL Glucose 104 (70-105) mg/dL Calcium 8.9 (8.6-10.3) mg/dL Calcium panel 12/24/17 Range/Units 04:00 Calcium 8.9 (8.6-10.3) mg/dL Phosphorus 3.2 (2.7-4.5) mg/dL Pituitary panel 12/24/17 Range/Units 04:00 Sodium 136 (136-145) mEq/L Potassium 4.0 (3.5-5.1) mEq/L Chloride 99 (98-107) mEq/L Carbon Dioxide 30 H (23-29) mEq/L BUN 6 (6-20) mg/dL Creatinine 0.44 L (0.70-1.30) mg/dL Glucose 104 (70-105) mg/dL Calcium 8.9 (8.6-10.3) mg/dL Adrenal panel 12/24/17 Range/Units 04:00 Sodium 136 (136-145) mEq/L Potassium 4.0 (3.5-5.1) mEq/L Chloride 99 (98-107) mEq/L Carbon Dioxide 30 H (23-29) mEq/L BUN 6 (6-20) mg/dL Creatinine 0.44 L (0.70-1.30) mg/dL Glucose 104 (70-105) mg/dL Calcium 8.9 (8.6-10.3) mg/dL Consult Discharge Plan - Plan Referrals: Joseph Pelayo MD [Primary Care Provider] - (please call upon discharge, per ocp office...)
--- NOTE | 2017-12-24 17:30 | Pulmonology Progress Note ---
Date of Encounter: 12/24/17 Time of Encounter: 11:15 Assessment and Plan (1) Mucus plugging of bronchi Current Visit: No Status: Chronic Unfortunately with his underlying quadriplegia this to be a chronic problem for him and chest physical therapy with bronchodilators to continue. Antibiotics for pneumonia. I have discussed with patient in the presence of the nurse and his father in the room about bronchoscopy for airway clearance since he felt better after the first one and all the risks, alternative, benefits of the procedure explained to the patient and patient and his father both agreed to have it done. We will arrange it for him. Discussed with primary team. 12/22 patient is breathing better today after bronchoscopy and continue chest physical therapy with bronchodilators and empiric antibiotics. Consider infectious disease consultation for management of antibiotics. 12/24 one more time she needed bronchoscopy for airway clearance and he had good response to this therapy. I have discussed with the father and patient's mother as well as patient regarding he may need tracheostomy and hopefully could be a temporary solution, however in fact with his weakness on top of the pneumonia that he has had difficulty clearing airways if chest physical therapy and antibiotics is not helping then introduce not practical to keep repeating bronchoscopy. Family is considering a second opinion which is reasonable. (2) Acute hypoxemic respiratory failure Current Visit: Yes Status: Acute (3) Pneumonia Current Visit: Yes Status: Acute Qualifiers: Pneumonia type: due to other aerobic Gram-negative bacteria Laterality: right Lung location: unspecified part of lung Qualified Code(s): J15.6 - Pneumonia due to other Gram-negative bacteria Subjective Principal diagnosis: Pneumonia Interval history: Patient is complaining of difficulty breathing and difficult for him to clear secretion Objective PUL Vital signs: Last Vital Signs Temp 98.3 F 12/24/17 16:28 Pulse 73 12/24/17 16:28 Resp 16 12/24/17 16:28 BP 100/62 12/24/17 16:28 Pulse Ox 92 12/24/17 16:28 General appearance: appears uncomfortable Eyes: nonicteric Neck: supple Effort: mildly labored Auscultation: bilateral: rhonchi Percussion: bilateral: not dull Cardiovascular: regular rate and rhythm Gastrointestinal: normoactive bowel sounds Extremities: no cyanosis normal mental status mood appropriate Results - Laboratory Findings CBC and BMP: 12/24/17 04:30 12/24/17 04:00 ABG ABG pH 7.42 pH Units (7.32-7.45) 12/21/17 09:22 ABG pCO2 61 mmHg (35-45) H 12/21/17 09:22 ABG pO2 64 mmHg (85-104) L 12/21/17 09:22 ABG O2 Saturation 92 % (95-98) L 12/21/17 09:22 PT/INR, D-dimer PT 13.6 Seconds (9.4-12.1) H 12/11/17 13:59 D-Dimer 339 ng/mLFEU (0-500) 12/11/17 13:59 Abnormal lab findings: Abnormal lab results WBC 13.4 K/mcL (4.3-11.1) H 12/24/17 04:30 RBC 3.88 M/mcL (4.19-5.50) L 12/24/17 04:30 Hgb 11.2 g/dL (12.9-16.9) L 12/24/17 04:30 Hct 35.4 % (37.5-50.1) L 12/24/17 04:30 Plt Count 485 K/mcL (140-400) H 12/24/17 04:30 MPV 8.6 fL (9.4-12.4) L 12/24/17 04:30 Neutrophils # 11.1 K/mcL (1.6-8.9) H 12/24/17 04:30 Nucleated RBCs/100 WBC 0.3 /100 WBC (0) H 12/13/17 05:11 Platelet Estimate Slight Decrease (Normal) L 12/14/17 05:33 ESR 109 mm/hr (0-10) H 12/17/17 06:12 PT 13.6 Seconds (9.4-12.1) H 12/11/17 13:59 ABG pCO2 61 mmHg (35-45) H 12/21/17 09:22 ABG pO2 64 mmHg (85-104) L 12/21/17 09:22 ABG HCO3 39 mEq/L (21-27) H 12/21/17 09:22 ABG Total CO2 41 mEq/L (20-26) H 12/21/17 09:22 ABG O2 Saturation 92 % (95-98) L 12/21/17 09:22 ABG Base Excess 12 mEq/L (-2 to 3) H 12/21/17 09:22 Carbon Dioxide 30 mEq/L (23-29) H 12/24/17 04:00 Creatinine 0.44 mg/dL (0.70-1.30) L 12/24/17 04:00 C-Reactive Protein 176 mg/L (Less than 10) H 12/17/17 18:35 Procalcitonin 0.34 ng/mL (<=0.10) H 12/14/17 16:30 Urine Clarity Cloudy (Clear) A 12/17/17 18:19 Urine Protein 30 mg/dL (Neg-Trace) H 12/17/17 18:19 Urine Blood Moderate (Negative) H 12/17/17 18:19 Ur Leukocyte Esterase Moderate (Negative) H 12/17/17 18:19 Urine Microscopic RBC 50-100 per hpf (0-3) H 12/17/17 18:19 Urine Microscopic WBC 30-50 per hpf (0-3) H 12/17/17 18:19 Ur Squamous Epith Cells Many per lpf (None-Few) H 12/17/17 18:19 Fluid Appearance Hazy (Clear) A 12/21/17 15:51 Vancomycin Trough 31 mcg/mL (5-10) H 12/23/17 05:37 - Microbiology Findings Microbiology Findings: Microbiology, Last 48 Hours 12/21/17 15:51 Gram Stain - Final Right Upper Lobe Lung Respiratory Culture - Preliminary Yeast Species - Diagnostic Findings CT scan - chest: report reviewed, image reviewed - Clinical Findings Intake & Output: Intake & Output 12/24/17 12/24/17 12/24/17 07:59 15:59 23:59 Intake Total 250 / 250 600 / 600 Output Total 400 / 400 850 / 850 0 / 0 Balance -150 / -150 -250 / -250 0 / 0 Consult Discharge Plan - Plan Referrals: Joseph Pelayo MD [Primary Care Provider] - (please call upon discharge, per ocp office...)
[2017-12-25] MEDS: Acetylcysteine 10% 2 ML INHSOL IH SCH ×5 (03:51→20:04)
[2017-12-25] MEDS: Ipratropium/Albuterol Neb 3 ML IH SCH ×5 (03:51→20:04)
[2017-12-25 04:28] LABS: Basophils # 0.1 K/mcL (0.0-0.2); Basophils % 0.5 %; Eosinophils # 0.4 K/mcL (0.0-0.6); Eosinophils % 3.4 %; Hematocrit 35.4 % (37.5-50.1); Hemoglobin 10.8 g/dL (12.9-16.9); Immature Granulocytes % 1.7 % (0-4); Lymphocytes # 1.5 K/mcL (0.6-4.6); Lymphocytes % 13.2 %; Mean Corpuscular HGB Conc 30.5 g/dL (31.6-35.5); Mean Corpuscular Hemoglobin 28.2 pg (28.0-33.3); Mean Corpuscular Volume 92.4 fL (83.0-100.0); Mean Platelet Volume 8.4 fL (9.4-12.4); Monocytes # 0.8 K/mcL (0.0-1.3); Monocytes % 7.4 %; Neutrophils # 8.4 K/mcL (1.6-8.9); Platelet Count 500 K/mcL (140-400); Red Blood Count 3.83 M/mcL (4.19-5.50); Red Cell Distribution Width 13.7 % (11.5-14.5); Segmented Neutrophils % 73.8 %
[2017-12-25 04:54] LABS: BUN/Creatinine Ratio 22 (6-26); Blood Urea Nitrogen 11 mg/dL (6-20); Calcium 8.8 mg/dL (8.6-10.3); Carbon Dioxide 29 mEq/L (23-29); Chloride 103 mEq/L (98-107); Glucose 92 mg/dL (70-105); Magnesium 1.8 mg/dL (1.6-2.6); Osmolality,Calculated 283 (280-300); Phosphorous 3.8 mg/dL (2.7-4.5); Potassium 4.2 mEq/L (3.5-5.1); Sodium 137 mEq/L (136-145); eGFR For African Americans > 60 (> 60); eGFR For Non-African Americans > 60 (> 60)
[2017-12-25] MEDS: Piperacillin/Tazobactam 3.375 GM in 0.9 % Sodium Chloride Mini Bag 100 ML IVPB SCH ×2 (06:13→13:28)
[2017-12-25] MEDS: *HR* Heparin 5,000 UNIT/ML VIAL SQ SCH ×2 (06:17→13:06)
[2017-12-25] MEDS: *HR* OxyCODONE ER (12 HR) 10 MG TABLET PO SCH ×2 (09:41→14:01)
[2017-12-25] MEDS: Sennosides/Docusate Sodium TABLET PO SCH (09:42)
[2017-12-25] MEDS: Baclofen 10 MG TABLET PO SCH (09:42)
[2017-12-25] MEDS: Pregabalin 75 MG CAPSULE PO SCH (09:43)
[2017-12-25] MEDS: Levofloxacin 750 MG/150 ML 750 MG/150 ML BAG IVPB SCH (09:44)
--- NOTE | 2017-12-25 09:46 | Discharge Summary ---
Orders not resulted at time of discharge: Pending orders 12/16/17 14:50 AFB Culture, Respiratory [TB] Routine AFB Smear [TB] Routine Fungal Culture [MYC] Routine Legionella Culture [RM] Routine 12/21/17 15:51 Culture,Respiratory [RM] Routine Gram Stain [RM] Routine 12/23/17 14:07 Culture,Blood [BC] Stat Culture,Blood,Additional [BC] Stat Procalcitonin Stat 12/24/17 12:27 Culture,Respiratory [RM] Routine Gram Stain [RM] Routine 12/26/17 04:00 Basic Metabolic Panel AM 0400 Complete Blood Count [HEME] AM 0400 Magnesium AM 0400 Phosphorous AM 0400 Date of Encounter: 12/25/17 Time of Encounter: 09:44 - Discharge Diagnosis (1) Acute hypoxemic respiratory failure Priority: Primary Status: Acute (2) Multifocal pneumonia Priority: Primary Status: Acute (3) Nephrolithiasis Priority: Primary Status: Acute (4) Quadriplegia Priority: Secondary Status: Acute (5) Sepsis Priority: Primary Status: Acute Qualifiers: Sepsis type: sepsis due to unspecified organism Qualified Code(s): A41.9 - Sepsis, unspecified organism (6) Mucus plugging of bronchi Priority: Primary Status: Acute (7) UTI (urinary tract infection) Priority: Primary Status: Acute Qualifiers: Urinary tract infection type: catheter-associated UTI Indwelling urinary catheter type: cystostomy catheter Encounter type: subsequent encounter Qualified Code(s): T83.510D - Infection and inflammatory reaction due to cystostomy catheter, subsequent encounter; N39.0 - Urinary tract infection, site not specified; N39.0 - Urinary tract infection, site not specified Hospital course: Mr. Fritz is a 37 year old male who has history of quadriplegia, s/p a suprapubic Catheter presented to emergency room for productive cough, chill , shortness of breath. The patient was treated for pneumonia and his abx were broadened. He has had issues with mucus plugging in the past and we ran into this issue again. He is unable to clear his own secretions. Pulmonary were consulted and he required 3 bronchoscopies while here. Eventually pulm recommended a trach to help with management of secretions. The patient and his parents wanted a second opinion and asked for a transfer to [place] for that. We made arrangements for a transfer. The patient also had abdominal pain while here and was diagnosed with a 19mm right UPJ stone and underwent a cystoscopy with removal of a bladder stone and right ureteral stent placement. Cultures were negative. He has been fever free since 12/22 with a tmax of 100.0on 12/23 at 9 pm. He is stable for transfer to [place]. He was on vanco/ zosyn/levaquin on day of discharge. ID was following as well. He has had 12 days of vanco/zosyn. He had 3 days of Levquin. - Time Spent with Patient Total time spent providing and/or coordinating discharge services: Greater than 30 minutes - Discharge Medications Home Medications: Baclofen 20 mg PO BID 04/17/15 [History] Diazepam [Valium] 10 mg PO BID PRN 04/17/15 [History] Oxycodone HCl 15 mg PO Q6HR PRN 04/17/15 [History] Oxycodone HCl [Oxycontin] 10 mg PO BID 04/17/15 [History] Pregabalin [Lyrica] 300 mg PO DAILY 04/17/15 [History] Sertraline [Zoloft] 150 mg PO DAILY 04/17/15 [History] Trazodone HCl 150 mg PO HS PRN 04/17/15 [History] Allergies/Adverse Reactions: 3 Allergy/AdvReac Type Severity Reaction Status Date / Time morphine Allergy Hallucinati Verified 12/11/17 14:17 ng Date of admission: 12/11/17 17:21 Primary care physician: Joseph Pelayo MD Consults: 12/14/17 08:56 Consult to Infectious Diseases [CONS] Routine Consulting Provider: Infectious Disease Claudine Reason for Consult: fever of unknown origin Call Completed: Yes 12/15/17 10:55 Consult to Nutrition [CONS] Routine Comment: patient has decreased appetite, easier to drink Consulting Provider: NUTRITION Reason for Dietary Consult: PO Supplementation 12/15/17 16:18 Consult to Respiratory Therapy [CONS] Routine Reason for Consult: Accupap Q6 Hours Call Completed: Yes 12/15/17 16:48 Consult to Pulmonology [CONS] Routine Consulting Provider: [facility] [place] Reason for Consult: recurrent PNA Call Completed: Yes 12/18/17 13:13 Consult to Urology [CONS] Routine Consulting Provider: Urology Claudine Reason for Consult: CT findings concerning for pyonephrosis Call Completed: Yes 12/21/17 08:56 Consult to Pulmonology [CONS] Routine Consulting Provider: [facility] Reason for Consult: respiratory failure, PNA Call Completed: Yes - Constitutional Vitals: Temp Pulse Resp BP Pulse Ox 98.0 F 91 16 114/65 94 12/25/17 08:00 12/25/17 08:00 12/25/17 08:00 12/25/17 08:00 12/25/17 08:14 General appearance: Present: A&O X 3 (quadriplegic with contracted upper extremities ), no acute distress, obese Exam: GEN: NAD CVS: RRR. S1, S2, No m/r/g RESP: Diminished with coarse breath sounds on the right. ABD: Soft, NT, ND, +BS EXT: No edema. 2+ DP. No rashes. b/l below knee amp noted NEURO: Nonfocal - Patient Status Disposition: Transfer Other Condition: Fair Overall status at discharge: patient is not back to baseline - Discharge Instructions Follow Up With: Joseph Pelayo MD [Primary Care Provider] - (please call upon discharge, per ocp office...) Suleiman Kenny MD [Partnered Physician] - (2 weeks) Forms: ED Satisfaction Letter - Diet and Activity Activity: increase activity as tolerated Diet: regular diet
--- NOTE | 2017-12-25 10:23 | Infectious Disease Progress No ---
Date of Encounter: 12/25/17 Time of Encounter: 10:21 - Assessment and Plan (1) Sepsis Current Visit: Yes Status: Acute The patient had four SIRS criteria on admission. Likely secondary to pneumonia and UTI. The patient continues to have fevers with Tmax 100.0 overnight. Tachycardia and tachypnea have resolved. WBC remains elevated this morning. Blood cultures drawn 12/11/17 x 2, 12/13/17 x 2, and 12/14/17 x 2 are negative. Etiology of persistent fevers and worsening leukocytosis unclear: lungs vs. vs. other. Repeat blood cultures x 2 sets drawn 12/23/17 are pending. Check procalcitonin.--> pending. CT chest shows persistent/worsening infiltrates. CT abdomen/pelvis shows possible pyelitis/pyelonephritis. Continue Vancomycin IV. Pharmacy to dose. Goal trough ~15. Continue Zosyn 3.375 grams IV Q8H. Levaquin added by the hospitalist team. Given the patient's complex clinical picture and persistent fevers/leukocytosis , recommend transfer to tertiary care center with full ID staff/support since Dr. Yao is out of town until Thursday. Discussed with the primary team. Qualifiers: Sepsis type: sepsis due to unspecified organism Qualified Code(s): A41.9 - Sepsis, unspecified organism (2) Multifocal pneumonia Current Visit: Yes Status: Acute Causative organism unclear. Location: Multifocal. Concern for aspiration and poor respiratory clearance due to the patient's quadriplegia. CXR 12/11/17 showed right perihilar and mid-lung opacities which are highly suspicious for PNA given the patient's history. Repeat CXR 12/14/17 showed progressive bilateral multifocal PNA. CTA chest 12/14/17 was negative for PE, but did show multifocal infiltrate, right greater than left and completed lower lobe atelectasis bilaterally with partial gravity dependent LUPE atelectasis and bilateral pleural effusions, right greater than left. Repeat CXR 12/20/17 showed multilobar PNA with interval development of the RUL pneumonia. Strep pneumo and Legionella UAT negative. Pulmonology consulted. Status post bronchoscopy 12/16/17 and 12/21/17. Both procedures showed mucopurulent secretions with mucous plugs in the airway, but all BAL cultures are negative for bacterial organisms. Most recent bronch on 12/21 is positive for yeast species. Discussed with Dr. Yao via phone. No indication to treat at this point. Swallow evaluation did not show any evidence of aspiration. Repeat CT of the chest with contrast 12/23/17 showed increasing consolidation within the upper lungs bilaterally, especially on the right and continued complete lobar collapse of the lower lobes with secretions within the airways. Status post repeat bronchoscopy 12/24/[address] Solomon. LArge amount of mucopurulent secretions noted again. Cultures pending. Tracheostomy recommended per pulmonology to assist with pulmonary toileting. Continue Vancomycin IV. Pharmacy to dose. Goal trough ~15. Vanc trough 31. Dosing discussed with Norm Travis. Continue Zosyn 3.375 grams IV Q8H. Levaquin added by the primary team. Continue for now, although I am not sure that it is providing anything that will improve the patient's clinical picture. Duration of treatment depends on the clinical picture. Monitor renal function and for drug toxicity and dose-adjust antibiotics. Pending transfer to [facility]. (3) UTI (urinary tract infection) due to urinary indwelling catheter Current Visit: No Status: Acute Causative organism: Enterococcus species per urine culture obtained 12/16/17. Treated with Vanc and Zosyn. Repeat urine culture 12/16/[address] of the abdomen and pelvis 12/23/17 showed perinephric stranding and periureteral stranding on the right suggestive of pyelitis/pyelonephritis without hydro. Urology evaluation noted. Continue antibiotics as above. Qualifiers: Indwelling urinary catheter type: cystostomy catheter Encounter type: initial encounter Qualified Code(s): T83.510A - Infection and inflammatory reaction due to cystostomy catheter, initial encounter; N39.0 - Urinary tract infection, site not specified; N39.0 - Urinary tract infection, site not specified (4) Acute hypoxemic respiratory failure Current Visit: Yes Status: Acute Likely secondary to multifocal pneumonia. On BIPAP. Continue supportive care with aggressive pulmonary toileting. Further management per the pulmonology team. (5) Mucus plugging of bronchi Current Visit: No Status: Chronic (6) Thrombocytopenia Current Visit: Yes Status: Resolved Resolved, continue to monitor. (7) Nephrolithiasis Current Visit: Yes Status: Acute 12/17/17: CT of the abdomen and pelvis showed mild right-sided hydronephrosis secondary to a stone in the UPJ Urology consulted. Status post cystoscopy with the right retrograde pyelogram and placement of a stent in the right ureter with removal of the bladder stone. Get CT of the abdomen and pelvis to evaluate for intra-abdominal process that could be contributing to the patient's fevers. 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 Continue pulmonary rehabilitation Management per primary team. - Subjective Interval history: Patient seen and examined. Afebrile overnight. On BIPAP this morning due to hypoxia. The patient felt good after his bronch yesterday and refused RTS treatments and became hypoxic this morning. States he feels okay today. Denies chills or rigors. Bilateral stump pain. Dennies right flank pain. Denies shortness of breath or chest pain.Denies nausea, vomiting or diarrhea. Reports large BM last Thursday. Suprapubic catheter remains patent. Denies oral thrush or new skin lesions. BAL positive for yeast species. Pending transfer to [facility]. Infect Dis PN-Objective Data - Labs CBC & Chem 7: 12/25/17 04:09 12/25/17 04:09 Labs: Laboratory Results - last 24 hr 12/21/17 12/25/17 12/25/17 15:51 04:09 04:09 WBC 11.4 H RBC 3.83 L Hgb 10.8 L Hct 35.4 L MCV 92.4 MCH 28.2 MCHC 30.5 L RDW 13.7 Plt Count 500 H MPV 8.4 L Immature Gran % 1.7 Seg Neutrophils % 73.8 Lymphocytes % 13.2 Monocytes % 7.4 Eosinophils % 3.4 Basophils % 0.5 Neutrophils # 8.4 Lymphocytes # 1.5 Monocytes # 0.8 Eosinophils # 0.4 Basophils # 0.1 Sodium 137 Potassium 4.2 Chloride 103 Carbon Dioxide 29 BUN 11 Creatinine 0.50 L Est GFR ( Amer) > 60 Est GFR (Non-Af Amer) > 60 BUN/Creatinine Ratio 22 Glucose 92 Calculated Osmolality 283 Calcium 8.8 Phosphorus 3.8 Magnesium 1.8 Fluid Source rul bal Fluid Volume 15 Fluid Appearance Hazy A Fluid RBC TNP Fld Tot Nucleated Cell TNP Fluid Seg Neutrophil % 99.0 Fluid Lymphocytes % 1.0 Vancomycin Trough 12/25/17 08:00 WBC RBC Hgb Hct MCV MCH MCHC RDW Plt Count MPV Immature Gran % Seg Neutrophils % Lymphocytes % Monocytes % Eosinophils % Basophils % Neutrophils # Lymphocytes # Monocytes # Eosinophils # Basophils # Sodium Potassium Chloride Carbon Dioxide BUN Creatinine Est GFR ( Amer) Est GFR (Non-Af Amer) BUN/Creatinine Ratio Glucose Calculated Osmolality Calcium Phosphorus Magnesium Fluid Source Fluid Volume Fluid Appearance Fluid RBC Fld Tot Nucleated Cell Fluid Seg Neutrophil % Fluid Lymphocytes % Vancomycin Trough 22 H Cultures: Cultures 12/21/17 15:51 Gram Stain - Final Right Upper Lobe Lung Respiratory Culture - Final Court albicans 12/23/17 14:07 Blood Culture - Preliminary Peripheral Venipuncture No growth. 12/23/17 14:07 Blood Culture - Preliminary Peripheral Venipuncture No growth. 12/14/17 16:30 Blood Culture - Final Peripheral Venipuncture No growth. 12/14/17 16:30 Blood Culture - Final Peripheral Venipuncture No growth. 12/17/17 18:40 Urine Culture - Final Urine,Clean Catch No growth. 12/16/17 14:50 Respiratory Culture - Final Right Middle Lobe Lung No growth. 12/13/17 14:07 Blood Culture - Final Peripheral Venipuncture No growth. 12/13/17 14:07 Blood Culture - Final Peripheral Venipuncture No growth. 12/16/17 14:50 Legionella Culture - Final Right Middle Lobe Lung 12/16/17 14:50 Acid Fast Stain - Final Right Middle Lobe Lung 12/16/17 14:50 Gram Stain - Final Right Middle Lobe Lung 12/12/17 12:45 Urine Culture - Final Urine,Clean Catch Enterococcus faecalis 12/14/17 23:15 Sputum Culture - Final Sputum 12/12/17 12:45 Legionella Antigen - Final Urine,Clean Catch Streptococcus pneumoniae Antigen (M - Final 12/11/17 19:45 Sputum Culture - Final Sputum Serology 12/21/17 12/17/17 12/16/17 Range/Units 15:51 18:19 14:50 Urine Color Dark Yellow (Yellow) Urine Clarity Cloudy A (Clear) Urine pH 6.5 (5.0-8.0) pH Units Ur Specific Spring 1.020 (1.010-1.025) Urine Protein 30 H (Neg-Trace) mg/dL Urine Glucose (UA) Normal (Normal) mg/dL Urine Ketones Negative (Negative) mg/dL Urine Blood Moderate H (Negative) Urine Nitrite Negative (Negative) Urine Bilirubin Negative (Negative) Urine Urobilinogen Normal (Normal) mg/dL Ur Leukocyte Esterase Moderate H (Negative) Urine Microscopic RBC 50-100 H (0-3) per hpf Urine Microscopic WBC 30-50 H (0-3) per hpf Ur Squamous Epith Cells Many H (None-Few) per lpf Urine Bacteria Few (None-Few) per hpf Hyaline Casts Few (None-Few) per lpf Ur Culture Indicated? NO. (NO) Fluid Source rul bal right middle lobe BA Fluid Volume 15 19 mL Fluid Appearance Hazy A Cloudy A (Clear) Fluid RBC TNP 0.002 (No Ref Range) M/mcL Fld Tot Nucleated Cell TNP 1301 (No Ref Range) TNC/mcL Fluid Seg Neutrophil % 99.0 93.2 % Fld Band Neutrophil % TNP Fluid Lymphocytes % 1.0 2.3 % Fluid Monocytes % TNP Fluid Eosinophils % TNP Fluid Basophils % TNP Fluid Other Cells % 4.5 % Chlamy pneumoniae PCR (Not Detect) Adenovirus (PCR) (Not Detect) B. pertussis DNA (PCR) (Not Detect) B.parapertussis DNA PCR (Not Detect) Coronavirus OC43 (PCR) (Not Detect) Coronavirus HKU1 (PCR) (Not Detect) Coronavirus 229E (PCR) (Not Detect) Coronavirus NL63 (PCR) (Not Detect) Human Metapneumovir PCR (Not Detect) Influenza A (H1) PCR (Not Detect) Influ A (H1N1/09) PCR (Not Detect) Influenza A (H3) PCR (Not Detect) Influenza Type A (PCR) Influenza A Untype (PCR) (Not Detect) Influenza Type B (PCR) (Not Detect) M.pneumoniae DNA (PCR) (Not Detect) Parainfluenza 1 (PCR) (Not Detect) Parainfluenza 2 (PCR) (Not Detect) Parainfluenza 3 (PCR) (Not Detect) Parainfluenza 4 (PCR) (Not Detect) RSV (PCR) (Not Detect) Entero/Rhino (PCR) (Not Detect) 12/16/17 12/14/17 12/12/17 Range/Units 14:50 17:19 12:45 Urine Color Dark Yellow (Yellow) Urine Clarity Turbid A (Clear) Urine pH 7.0 (5.0-8.0) pH Units Ur Specific Spring 1.016 (1.010-1.025) Urine Protein 30 H (Neg-Trace) mg/dL Urine Glucose (UA) Normal (Normal) mg/dL Urine Ketones Negative (Negative) mg/dL Urine Blood Large H (Negative) Urine Nitrite Positive A (Negative) Urine Bilirubin Negative (Negative) Urine Urobilinogen Normal (Normal) mg/dL Ur Leukocyte Esterase Large H (Negative) Urine Microscopic RBC TNTC H (0-3) per hpf Urine Microscopic WBC TNTC H (0-3) per hpf Ur Squamous Epith Cells Moderate H (None-Few) per lpf Urine Bacteria Few (None-Few) per hpf Hyaline Casts None Seen (None-Few) per lpf Ur Culture Indicated? (NO) Fluid Source NOT PROVIDED Fluid Volume mL Fluid Appearance (Clear) Fluid RBC (No Ref Range) M/mcL Fld Tot Nucleated Cell (No Ref Range) TNC/mcL Fluid Seg Neutrophil % % Fld Band Neutrophil % Fluid Lymphocytes % % Fluid Monocytes % Fluid Eosinophils % Fluid Basophils % Fluid Other Cells % % Chlamy pneumoniae PCR Not Detected (Not Detect) Adenovirus (PCR) Not Detected (Not Detect) B. pertussis DNA (PCR) Not Detected (Not Detect) B.parapertussis DNA PCR Not Detected (Not Detect) Coronavirus OC43 (PCR) Not Detected (Not Detect) Coronavirus HKU1 (PCR) Not Detected (Not Detect) Coronavirus 229E (PCR) Not Detected (Not Detect) Coronavirus NL63 (PCR) Not Detected (Not Detect) Human Metapneumovir PCR Not Detected (Not Detect) Influenza A (H1) PCR Not Detected (Not Detect) Influ A (H1N1/09) PCR Not Detected (Not Detect) Influenza A (H3) PCR Not Detected (Not Detect) Influenza Type A (PCR) NOT DETECTED Influenza A Untype (PCR) Not Detected (Not Detect) Influenza Type B (PCR) NOT DETECTED Not Detected (Not Detect) M.pneumoniae DNA (PCR) Not Detected (Not Detect) Parainfluenza 1 (PCR) Not Detected (Not Detect) Parainfluenza 2 (PCR) Not Detected (Not Detect) Parainfluenza 3 (PCR) Not Detected (Not Detect) Parainfluenza 4 (PCR) Not Detected (Not Detect) RSV (PCR) NOT DETECTED Not Detected (Not Detect) Entero/Rhino (PCR) Not Detected (Not Detect) Exam - Constitutional Vitals: Temp Pulse Resp BP Pulse Ox 98.0 F 91 16 114/65 94 12/25/17 08:00 12/25/17 08:00 12/25/17 08:00 12/25/17 08:00 12/25/17 08:14 General appearance: average body habitus, cooperative, no acute distress - Head Head exam: Present: atraumatic, normal inspection, normocephalic - Eye Eye exam: Present: EOMI, normal appearance, PERRL Pupils: Present: normal accommodation - ENT ENT exam: Present: mucous membranes moist - Neck Neck exam: Present: normal inspection - Respiratory Respiratory exam: Present: rhonchi (throughout). Absent: rales, respiratory distress, wheezes Additional comments: On BIPAP - Cardiovascular Cardiovascular exam: Present: RRR, +S1, +S2 - GI/Abdominal GI/Abdominal exam: Present: normal bowel sounds, soft. Absent: distended, tenderness Additional comments: Suprapubic catheter draining dark yellow urine. - Extremities Exam Extremities exam: Absent: joint swelling, pedal edema, tenderness Additional comments: Bilateral BKA stumps without edema, erythema, or warmth. - Neurological Exam Neurological exam: Present: alert, oriented X3. Absent: no focal deficits ( Paralysis noted to the BLE. ) - Psychiatric Psychiatric exam: Present: normal affect, normal mood - Skin Skin exam: Present: dry, intact, normal color, warm Consult Discharge Plan - Plan Referrals: Joseph Pelayo MD [Primary Care Provider] - (please call upon discharge, per ocp office...) Suleiman Kenny MD [Partnered Physician] - (2 weeks)
[2017-12-25 16:54] VITALS: BP 121/76
--- NOTE | 2017-12-25 17:03 | Pulmonology Progress Note ---
Date of Encounter: 12/25/17 Time of Encounter: 09:50 Assessment and Plan (1) Mucus plugging of bronchi Current Visit: No Status: Chronic Unfortunately with his underlying quadriplegia this to be a chronic problem for him and chest physical therapy with bronchodilators to continue. Antibiotics for pneumonia. I have discussed with patient in the presence of the nurse and his father in the room about bronchoscopy for airway clearance since he felt better after the first one and all the risks, alternative, benefits of the procedure explained to the patient and patient and his father both agreed to have it done. We will arrange it for him. Discussed with primary team. 12/22 patient is breathing better today after bronchoscopy and continue chest physical therapy with bronchodilators and empiric antibiotics. Consider infectious disease consultation for management of antibiotics. 12/24 one more time she needed bronchoscopy for airway clearance and he had good response to this therapy. I have discussed with the father and patient's mother as well as patient regarding he may need tracheostomy and hopefully could be a temporary solution, however in fact with his weakness on top of the pneumonia that he has had difficulty clearing airways if chest physical therapy and antibiotics is not helping then introduce not practical to keep repeating bronchoscopy. Family is considering a second opinion which is reasonable. 12/25 one more time patient started to have respiratory distress secondary to and able to clear his airway secretion. Patient is waiting to go to [facility]. Discussed with the family and the patient is transferred will be late for delayed and need bronchoscopy then we will arrange for him. (2) Acute hypoxemic respiratory failure Current Visit: Yes Status: Acute (3) Pneumonia Current Visit: Yes Status: Acute Qualifiers: Pneumonia type: due to other aerobic Gram-negative bacteria Laterality: right Lung location: unspecified part of lung Qualified Code(s): J15.6 - Pneumonia due to other Gram-negative bacteria Subjective Principal diagnosis: Pneumonia Interval history: Patient was feeling better after bronchoscopy and then he was required to be placed on BiPAP because of shortness of breath and respiratory distress. Objective PUL Vital signs: Last Vital Signs Temp 98.3 F 12/25/17 16:47 Pulse 96 12/25/17 16:47 Resp 16 12/25/17 16:47 BP 121/76 12/25/17 16:47 Pulse Ox 90 12/25/17 16:47 General appearance: appears uncomfortable Eyes: nonicteric ENT: oropharynx moist Effort: mildly labored Auscultation: bilateral: rhonchi Percussion: bilateral: not dull Cardiovascular: regular rate and rhythm Gastrointestinal: normoactive bowel sounds Extremities: no cyanosis normal mental status Results - Laboratory Findings CBC and BMP: 12/25/17 04:09 12/25/17 04:09 ABG ABG pH 7.42 pH Units (7.32-7.45) 12/21/17 09:22 ABG pCO2 61 mmHg (35-45) H 12/21/17 09:22 ABG pO2 64 mmHg (85-104) L 12/21/17 09:22 ABG O2 Saturation 92 % (95-98) L 12/21/17 09:22 PT/INR, D-dimer PT 13.6 Seconds (9.4-12.1) H 12/11/17 13:59 D-Dimer 339 ng/mLFEU (0-500) 12/11/17 13:59 Abnormal lab findings: Abnormal lab results WBC 11.4 K/mcL (4.3-11.1) H 12/25/17 04:09 RBC 3.83 M/mcL (4.19-5.50) L 12/25/17 04:09 Hgb 10.8 g/dL (12.9-16.9) L 12/25/17 04:09 Hct 35.4 % (37.5-50.1) L 12/25/17 04:09 MCHC 30.5 g/dL (31.6-35.5) L 12/25/17 04:09 Plt Count 500 K/mcL (140-400) H 12/25/17 04:09 MPV 8.4 fL (9.4-12.4) L 12/25/17 04:09 Nucleated RBCs/100 WBC 0.3 /100 WBC (0) H 12/13/17 05:11 Platelet Estimate Slight Decrease (Normal) L 12/14/17 05:33 ESR 109 mm/hr (0-10) H 12/17/17 06:12 PT 13.6 Seconds (9.4-12.1) H 12/11/17 13:59 ABG pCO2 61 mmHg (35-45) H 12/21/17 09:22 ABG pO2 64 mmHg (85-104) L 12/21/17 09:22 ABG HCO3 39 mEq/L (21-27) H 12/21/17 09:22 ABG Total CO2 41 mEq/L (20-26) H 12/21/17 09:22 ABG O2 Saturation 92 % (95-98) L 12/21/17 09:22 ABG Base Excess 12 mEq/L (-2 to 3) H 12/21/17 09:22 Creatinine 0.50 mg/dL (0.70-1.30) L 12/25/17 04:09 C-Reactive Protein 176 mg/L (Less than 10) H 12/17/17 18:35 Procalcitonin 0.34 ng/mL (<=0.10) H 12/14/17 16:30 Urine Clarity Cloudy (Clear) A 12/17/17 18:19 Urine Protein 30 mg/dL (Neg-Trace) H 12/17/17 18:19 Urine Blood Moderate (Negative) H 12/17/17 18:19 Ur Leukocyte Esterase Moderate (Negative) H 12/17/17 18:19 Urine Microscopic RBC 50-100 per hpf (0-3) H 12/17/17 18:19 Urine Microscopic WBC 30-50 per hpf (0-3) H 12/17/17 18:19 Ur Squamous Epith Cells Many per lpf (None-Few) H 12/17/17 18:19 Fluid Appearance Hazy (Clear) A 12/21/17 15:51 Vancomycin Trough 22 mcg/mL (5-10) H 12/25/17 08:00 - Microbiology Findings Microbiology Findings: Microbiology, Last 48 Hours 12/24/17 Unknown Gram Stain - Final Left Lower Lobe Lung 12/21/17 15:51 Gram Stain - Final Right Upper Lobe Lung Respiratory Culture - Final Court albicans 12/23/17 14:07 Blood Culture - Preliminary Peripheral Venipuncture No growth. 12/23/17 14:07 Blood Culture - Preliminary Peripheral Venipuncture No growth. - Clinical Findings Intake & Output: Intake & Output 12/25/17 12/25/17 12/25/17 07:59 15:59 23:59 Intake Total 350 / 350 490 / 490 Output Total 1245 / 1245 550 / 550 550 / 550 Balance -895 / -895 -60 / -60 -550 / -550 Weight 75.3 kg Consult Discharge Plan - Plan Referrals: Joseph Pelayo MD [Primary Care Provider] - (please call upon discharge, per ocp office...) Suleiman Kenny MD [Partnered Physician] - (2 weeks)
[2017-12-25] MEDS ORDERED: Aminoglycoside Consult 1 EACH MC ONE (20:11)
== END 2017-12-25 20:12 | disposition other institution (70) | DRG 853 ==
LOC: 2ANU 13:52 → EMEROO 13:52 → 2ANU 16:22 → SUATTDRO 17:21
PROVIDERS: ADMIT Hospitalist; ATTEND Internal Medicine